=== PATIENT | male | born 1940 | race Caucasian/White ===

== ENCOUNTER 2017-07-31 13:56 | Outpatient (RCR) | payer MEDICARE ==
[2017-07-05 14:49] VITALS: BP 114/71
[2017-07-24 14:10] VITALS: BP 114/70
[~2017-07-31] VITALS: Ht 190.5 cm; Wt 90.9 kg
[~2017-07-31 13:56] MED LIST: ACYCLOVIR; CEPH500C24 PO; CIP500 PO; DAR100 PO; DOC100 PO; FAM20 PO; FAMO20TA28 PO; HYDR-318 PO; IBUP-1671 PO; IBUPROFEN; LEVO-85 PO; LOR5/325 PO; PHENA200 PO; TER2 PO; TUM500 PO
[2017-08-02] MEDS ORDERED: GOLYTE PO (11:07)
[2017-08-06] MEDS ORDERED: ACYC800T99 PO (14:48)
== END 2017-08-14 09:53 | disposition home or self-care (01) ==
LOC: RAON 13:56
PROVIDERS: ATTEND Nurse Practitioner Family
DX: Z85.46 Personal history of malignant neoplasm of prostate (principal); Z92.3 Personal history of irradiation; K59.00 Constipation, unspecified
CPT/HCPCS: 36415; 84153; G0463; 99212

== ENCOUNTER 2017-08-27 14:33 | Emergency (ER) | payer MEDICARE ==
[~2017-08-27] VITALS: Ht 190.5 cm; Wt 89.8 kg
[~2017-08-27 14:33] MED LIST changes: +ACYC800T99 PO; +GOLYTE PO; +IBUP200C71 PO
[2017-08-27] MEDS ORDERED: DIPHTH/TETANUS/ACEL. PERTUSSIS IM ONLY ONE (14:45)
--- NOTE | 2017-08-27 14:45 | ER Report ---
History and Physical Time Seen By MD: 14:44 Hx. of Stated Complaint: TRIPPED AND FELL HITTING FACE ON CONCRETE 40 MIN AGO. DENIES LOC HPI/ROS 77 year old male outside working in the driveway and tripped and fell on driveway, has abrasion forehead and nose . no blood thinners but has mild headache Allergies: Coded Allergies: penicillin G (Verified Allergy, Intermediate, HIVES, 08/27/17) soybean (Verified Allergy, Intermediate, HIVES, 08/27/17) Uncoded Allergies: SOY DUST (Allergy, Severe, AIRWAY OBSTRUCTION, 05/27/07) Home Meds Active Scripts Doxycycline Hyclate (DOXYCYCLINE HYCLATE) 100 Mg Tablet, 100 MG PO BID, #14 Prov:ALLEN OBRIEN 08/27/17 Peg/Electrolytes (GOLYTELY SOLUTION) 4,000 Ml Soln, 1 GAL PO ONCE, #1 GAL 0 Refills Prov:MARCELO SALCEDO MD 08/02/17 Reported Medications Ibuprofen (IBUPROFEN) 200 Mg Capsule, 1 CAP PO Q6H Y for PAIN/TEMP OVER 100.4, CAPSULE 08/26/17 Acyclovir (ACYCLOVIR) 800 Mg Tablet, 800 MG PO QDAY Y for prn, TAB 08/06/17 Past Medical/Surgical History Pre-migraine syndrome, hemorrhoids, right testicle surgery, irritable bladder, anxiety, depression, Reviewed Nurses Notes: Yes Old Medical Records Reviewed: Yes Hx Smoking: No Smoking Status: Former Smoker Hx Alcohol Use: Yes Constitutional Vital Sign - Last 24 Hours 08/27/17 08/27/17 08/27/17 08/27/17 14:37 14:39 15:03 15:08 Temp 97.6 Pulse 62 59 60 Resp 20 B/P (MAP) 128/80 (96) 128/80 Pulse Ox 94 94 91 O2 Delivery Room Air 08/27/17 08/27/17 08/27/17 15:38 16:03 16:08 Pulse 60 B/P (MAP) 128/85 (99) Pulse Ox 95 92 Physical Exam 77 year old male alert anxious , mild distress headnormocephalic tm non reddened , haert rate irregular, lungs ciarse, abd soft bs x 4 , vargas no edema Medical Decision Making Data Points Result Diagram: 08/27/17 1547 08/27/17 1547 Laboratory Hematology Test 08/27/17 15:47 Red Blood Count 4.17 M/uL (4.00-5.60) Mean Corpuscular Volume 101.3 fL (80.0-96.0) Mean Corpuscular Hemoglobin 35.7 pg (26.0-33.0) Mean Corpuscular Hemoglobin Concent 35.2 g/dL (32.0-36.0) Red Cell Distribution Width 13.2 % (11.5-14.5) Mean Platelet Volume 6.9 fL (7.2-11.1) Neutrophils (%) (Auto) 75.4 % (39.4-72.5) Lymphocytes (%) (Auto) 13.3 % (17.6-49.6) Monocytes (%) (Auto) 8.5 % (4.1-12.4) Eosinophils (%) (Auto) 2.2 % (0.4-6.7) Basophils (%) (Auto) 0.6 % (0.3-1.4) Nucleated RBC Relative Count (auto) 0.0 /100WBC Neutrophils # (Auto) 3.9 K/uL (2.0-7.4) Lymphocytes # (Auto) 0.7 K/uL (1.3-3.6) Monocytes # (Auto) 0.4 K/uL (0.3-1.0) Eosinophils # (Auto) 0.1 K/uL (0.0-0.5) Basophils # (Auto) 0.0 K/uL (0.0-0.1) Nucleated RBC Absolute Count (auto) 0.00 K/uL Sodium Level 139 mmol/L (137-145) Potassium Level 3.7 mmol/L (3.5-5.0) Chloride Level 103 mmol/L (98-107) Carbon Dioxide Level 25 mmol/L (22-30) Blood Urea Nitrogen 10 mg/dl (9-21) Creatinine 1.00 mg/dl (0.66-1.25) Glomerular Filtration Rate Calc > 60.0 Random Glucose 73 mg/dl (75-110) Calcium Level 8.5 mg/dl (8.4-10.2) Total Bilirubin 0.4 mg/dl (0.2-1.3) Aspartate Amino Transf (AST/SGOT) 20 U/L (0-35) Alanine Aminotransferase (ALT/SGPT) 33 U/L (0-56) Alkaline Phosphatase 73 U/L (0-126) Total Protein 6.8 gm/dl (6.3-8.2) Albumin 3.7 g/dl (3.5-5.0) Chemistry Test 08/27/17 15:47 White Blood Count 5.2 k/uL (4.5-11.0) Red Blood Count 4.17 M/uL (4.00-5.60) Hemoglobin 14.9 g/dL (14.0-18.0) Hematocrit 42.3 % (42.0-52.0) Mean Corpuscular Volume 101.3 fL (80.0-96.0) Mean Corpuscular Hemoglobin 35.7 pg (26.0-33.0) Mean Corpuscular Hemoglobin Concent 35.2 g/dL (32.0-36.0) Red Cell Distribution Width 13.2 % (11.5-14.5) Platelet Count 163 K/uL (150-450) Mean Platelet Volume 6.9 fL (7.2-11.1) Neutrophils (%) (Auto) 75.4 % (39.4-72.5) Lymphocytes (%) (Auto) 13.3 % (17.6-49.6) Monocytes (%) (Auto) 8.5 % (4.1-12.4) Eosinophils (%) (Auto) 2.2 % (0.4-6.7) Basophils (%) (Auto) 0.6 % (0.3-1.4) Nucleated RBC Relative Count (auto) 0.0 /100WBC Neutrophils # (Auto) 3.9 K/uL (2.0-7.4) Lymphocytes # (Auto) 0.7 K/uL (1.3-3.6) Monocytes # (Auto) 0.4 K/uL (0.3-1.0) Eosinophils # (Auto) 0.1 K/uL (0.0-0.5) Basophils # (Auto) 0.0 K/uL (0.0-0.1) Nucleated RBC Absolute Count (auto) 0.00 K/uL Glomerular Filtration Rate Calc > 60.0 Calcium Level 8.5 mg/dl (8.4-10.2) Total Bilirubin 0.4 mg/dl (0.2-1.3) Aspartate Amino Transf (AST/SGOT) 20 U/L (0-35) Alanine Aminotransferase (ALT/SGPT) 33 U/L (0-56) Alkaline Phosphatase 73 U/L (0-126) Total Protein 6.8 gm/dl (6.3-8.2) Albumin 3.7 g/dl (3.5-5.0) ED Course/Re-evaluation ED Course Patient CT head and neck are negative abrasion to forehead had small amount of Dermabond added Pelto dressing placed CBC and comp are within normal limits patient feels better after treatment able to go home with head injury instructions, CAT scan of the head does so mild sinus disease we will treat this Re-evaluation Pain-free on dismissal is with him head injury instructions given to os Procedure Abrasion forehead cleaned with Hibiclens no active bleeding Dermabond to 1/2 inch deeper part of the abrasion to control bleeding tolerated well Decision to Disposition Date: Aug 27, 2017 Decision to Disposition Time: 16:08 Depart Departure Latest Vital Signs Vital Signs Date Time Temp Pulse Resp B/P (MAP) Pulse Ox O2 Delivery O2 Flow Rate FiO2 08/27/17 16:08 92 08/27/17 16:03 128/85 (99) 08/27/17 15:38 60 08/27/17 14:39 97.6 20 Room Air Impression: Primary Impression: Abrasion Additional Impression: Head injury Condition: Improved Disposition: HOME OR SELF-CARE Referrals: ENT-OTOLARYNGOLOGY 5 Days New Scripts Doxycycline Hyclate (DOXYCYCLINE HYCLATE) 100 Mg Tablet 100 MG PO BID, #14 Prov: ALLEN OBRIEN 08/27/17 Patient Instructions: Abrasion (GEN), Fall Prevention (ED), Head Injury (ED), Sinusitis (ED) Problem Qualifiers ALLEN OBRIEN Aug 27, 2017 14:44
[2017-08-27] MEDS ORDERED: OCTYL CYANOACRYLATE 1 APP APPL TP ONE (14:50)
[2017-08-27 15:56] LABS: PLATELET COUNT, AUTOMATED 163 K/uL (150-450)
[2017-08-27 16:03] VITALS: BP 128/85
--- NOTE | 2017-08-27 16:32 | RADIOLOGY IMAGING REPORT ---
FACILITY: [facility] PATIENT NAME: Tyrone Justin : 1940 MR: [id number] V: [id number] EXAM DATE: ORDERING PHYSICIAN: ALLEN OBRIEN TECHNOLOGIST: Location: [facility] - [place] Patient: Tyrone Justin : 1940 Visit/Account:[id number] Date of Sevice: 08/27/2017 CT Head without contrast and CT Cervical spine: Indication: Fall, hit driveway. Comparison: None available Technique: CT head: Axial CT images were obtained through the brain from the skull base to the verte x without administration of IV contrast. Reformatted coronal and sagittal images were also obtained. Technique: CT cervical spine: Axial CT imaging of the cervical spine was performed. 2-D sagittal and coronal CT reformats were also obtained. One of the following dose optimization techniques was utilized in the performance of this exam: Autom ated exposure control; adjustment of the mA and/or kV according to the patient's size; or use of an i terative reconstruction technique. Specific details can be referenced in the facility's radiology C T exam operational policy. FINDINGS: CT head: No intracranial bleed, midline shift, mass effect, extra-axial fluid collection or hydrocephalus. Mil d age-related cerebral atrophy. Minimal periventricular ischemic changes consistent small vessel dise ase. Zelaya/white matter differentiation appears normal. Bony structures show no fractures or lesions. Small subcutaneous hematoma above the left forehead. There is a couple tiny radiopaque densities in t he skin of the left forehead. Mild mucosal thickening seen in the inferior right maxillary sinus. The remaining sinuses and mastoids visualized are clear. CT cervical spine: The vertebral bodies are aligned. No fracture or facet dislocation. Diffuse osteopenia. Diffuse moder ate degenerative changes including disc space narrowing, endplate changes, vacuum disc phenomena, ost eophytes and facet arthropathy. No bony canal stenosis. Multilevel neural foramina narrowing. The end plates are maintained. No obvious disc herniation. Prevertebral soft tissues and surrounding soft ti ssues are unremarkable. Lung apices are clear. IMPRESSION: 1. No acute intracranial abnormality. Mild senescent changes. 2. No acute osseous or acute alignment abnormality of the cervical spine. Degenerative changes and os teopenia. 3. Mild right maxillary sinus disease. Report Dictated By: Kalen Lacey at 08/27/2017 4:17 PM Report E-Signed By: Kalen Lacey at 08/27/2017 4:28 PM WSN:[id number]
--- NOTE | 2017-08-27 16:32 | RADIOLOGY IMAGING REPORT ---
FACILITY: [facility] PATIENT NAME: Tyrone Justin : 1940 MR: [id number] V: [id number] EXAM DATE: ORDERING PHYSICIAN: ALLEN OBRIEN TECHNOLOGIST: Location: [facility] - [place] Patient: Tyrone Justin : 1940 Visit/Account:[id number] Date of Sevice: 08/27/2017 CT Head without contrast and CT Cervical spine: Indication: Fall, hit driveway. Comparison: None available Technique: CT head: Axial CT images were obtained through the brain from the skull base to the verte x without administration of IV contrast. Reformatted coronal and sagittal images were also obtained. Technique: CT cervical spine: Axial CT imaging of the cervical spine was performed. 2-D sagittal and coronal CT reformats were also obtained. One of the following dose optimization techniques was utilized in the performance of this exam: Autom ated exposure control; adjustment of the mA and/or kV according to the patient's size; or use of an i terative reconstruction technique. Specific details can be referenced in the facility's radiology C T exam operational policy. FINDINGS: CT head: No intracranial bleed, midline shift, mass effect, extra-axial fluid collection or hydrocephalus. Mil d age-related cerebral atrophy. Minimal periventricular ischemic changes consistent small vessel dise ase. Zelaya/white matter differentiation appears normal. Bony structures show no fractures or lesions. Small subcutaneous hematoma above the left forehead. There is a couple tiny radiopaque densities in t he skin of the left forehead. Mild mucosal thickening seen in the inferior right maxillary sinus. The remaining sinuses and mastoids visualized are clear. CT cervical spine: The vertebral bodies are aligned. No fracture or facet dislocation. Diffuse osteopenia. Diffuse moder ate degenerative changes including disc space narrowing, endplate changes, vacuum disc phenomena, ost eophytes and facet arthropathy. No bony canal stenosis. Multilevel neural foramina narrowing. The end plates are maintained. No obvious disc herniation. Prevertebral soft tissues and surrounding soft ti ssues are unremarkable. Lung apices are clear. IMPRESSION: 1. No acute intracranial abnormality. Mild senescent changes. 2. No acute osseous or acute alignment abnormality of the cervical spine. Degenerative changes and os teopenia. 3. Mild right maxillary sinus disease. Report Dictated By: Kalen Lacey at 08/27/2017 4:17 PM Report E-Signed By: Kalen Lacey at 08/27/2017 4:28 PM WSN:[id number]
[2017-08-27] MEDS ORDERED: DOXY-179 PO (16:46)
== END 2017-08-27 16:58 | disposition home or self-care (01) ==
LOC: ER 14:49
DX: S00.81XA Abrasion of other part of head, initial encounter (principal); S00.31XA Abrasion of nose, initial encounter; W01.198A Fall on same level from slipping, tripping and stumbling with subsequent striking against other object, initial encounter
CPT/HCPCS: 36415; 70450; 72125; 82040; 82247; 82310; 82374; 82435; 82565; 82947; 84075; 84132; 84155; 84295; 84450; 84460; 84520; 85025; 90471; 90715; 99283

== ENCOUNTER 2017-09-18 01:42 | Day surgery (SDC) | payer MEDICARE ==
[~2017-09-18] VITALS: Ht 185.4 cm; Wt 87.1 kg
[~2017-09-18 01:42] MED LIST changes: +DOXY-179 PO; +LIDOCAINE/SOD BICARB 8.4% SYR ID ONE; +MIDAZOLAM 2 MG/2 ML VIAL IVP ONE; +NORMOSOL R SOLN(*) 1000 ML BAG 1,000 ML IV PRN
[2017-09-18] MEDS ORDERED: LIDOCAINE MPF 1% 5 ML VIAL ONE (06:56)
[2017-09-18] MEDS ORDERED: PROPOFOL EMUL(*) 10MG/ML 20 ML 60 ML ONE (06:56)
[2017-09-18] MEDS ORDERED: MIDAZOLAM 2 MG/2 ML VIAL IVP PRN (08:50)
[2017-09-18] MEDS ORDERED: NORMOSOL R SOLN(*) 1000 ML BAG 1,000 ML IV PRN (08:50)
[2017-09-18] MEDS ORDERED: LIDOCAINE/SOD BICARB 8.4% SYR ID ONE (08:50)
[2017-09-18 08:58] VITALS: BP 132/82
[2017-09-18 11:41] VITALS: BP 132/82
[2017-09-18 11:45] VITALS: BP 131/85
--- NOTE | 2017-09-18 11:56 | Short(Outpt) Discharge Summary ---
Discharge Summary Reason for Hosp/Final Diag: (1) BRBPR (bright red blood per rectum) Status: Chronic Hospital Course & Plan: Colonoscopy with polpectomy and biopsy of suspected rectal cancer completed without problems. Departure Discharge to: Home, Self Care Discharge Instructions Home Meds Active Scripts Doxycycline Hyclate (DOXYCYCLINE HYCLATE) 100 Mg Tablet, 100 MG PO BID, #14 Prov:CAMILLEALLEN Theresa REGRINDER OPERATOR-C 08/27/17 Peg/Electrolytes (GOLYTELY SOLUTION) 4,000 Ml Soln, 1 GAL PO ONCE, #1 GAL 0 Refills Prov:MARCELO SALCEDO MD 08/02/17 Reported Medications Ibuprofen (IBUPROFEN) 200 Mg Capsule, 1 CAP PO Q6H Y for PAIN/TEMP OVER 100.4, CAPSULE 08/26/17 Acyclovir (ACYCLOVIR) 800 Mg Tablet, 800 MG PO QDAY Y for prn, TAB 08/06/17 Follow up Referrals: General Surgery - 10/08/17 @ Surgery, General with Marcelo Salcedo Md You have a follow up appointment scheduled with Dr. Salcedo on 10/08/17, at 4:30pm. Diet: Regular Activity: As Tolerated Special Instructions: Your colonoscopy was completed without problems and your prep was excellent. You have a mass in your rectum that I suspect is a cancer due to its size and appearance. I took multiple biopsies of it. I will call you next week with the results of the biopsies and will arrange further workup such as CT scan and MRI studies after I get the pathology results back. I will then discuss all of these results with you when I see you back in my office on 10/08/17, at 4:30pm. MARCELO SALCEDO MD Sep 18, 2017 11:56
[2017-09-18 12:00] VITALS: BP 131/78
[2017-09-18 12:06] VITALS: BP 117/70
[2017-09-18 12:08] VITALS: BP 117/83
[2017-09-19] MEDS ORDERED: DIAZ-308 PO (15:44)
[2017-09-23] MEDS ORDERED: DIAZ-308 PO (09:33)
== END 2017-09-18 12:27 | disposition home or self-care (01) ==
LOC: OR 01:42
PROVIDERS: ATTEND Surgery
DX: K63.5 Polyp of colon (principal); C20 Malignant neoplasm of rectum
CPT/HCPCS: 00811; 45384; 45385; 88305; 88344; J2001; J2704

== ENCOUNTER → 2017-09-23 | Outpatient (CLI) | payer MEDICARE ==
[~2017-09-23] MED LIST changes: +DIAZ-308 PO; +IOPAMIDOL 76% 75 ML INFUS BTL 0 ML ONE; +IOPAMIDOL 76% 75 ML INFUS BTL 75 ML ONE; -LIDOCAINE/SOD BICARB 8.4% SYR ID ONE; -MIDAZOLAM 2 MG/2 ML VIAL IVP ONE; -NORMOSOL R SOLN(*) 1000 ML BAG 1,000 ML IV PRN
[2017-09-23 09:50] LABS: PLATELET COUNT, AUTOMATED 181 K/uL (150-450)
--- NOTE | 2017-09-23 11:25 | RADIOLOGY IMAGING REPORT ---
FACILITY: [facility] - [place] PATIENT NAME: Tyrone Justin : 1940 MR: [id number] V: [id number] EXAM DATE: ORDERING PHYSICIAN: MARCELO SALCEDO TECHNOLOGIST: Location: [facility] Patient: Tyrone Justin : 1940 Visit/Account:[id number] Date of Sevice: 09/23/2017 EXAMINATION: CT Thorax W/Contrast CT Abdomen W/Contrast CT Pelvis W/Contrast HISTORY: Rectal cancer TECHNIQUE: Spiral scan was obtained through the chest, abdomen and pelvis during injection of nonioni c iodinated intravenous contrast. Dose Lowering Technique One of the following dose optimization techniques was utilized in the performance of this exam: Autom ated exposure control; adjustment of the mA and/or kV according to the patient's size; or use of an i terative reconstruction technique. Specific details can be referenced in the facility's radiology C T exam operational policy. Contrast: 75 mL of IV Isovue-[id number]. COMPARISON STUDIES: May 31, 2015. FINDINGS: CT THORAX W/CONTRAST: Lungs / pleura: Negative Mediastinum / jihan: Negative Heart / pericardium: There is mild aneurysmal dilatation of the ascending thoracic aorta measuring 4 .2 cm in AP dimension. There are mild coronary artery vascular calcifications. Musculoskeletal / Body wall: Moderate spondylotic changes of the thoracic spine Lymph node assessment: Negative Lower neck: Negative CT ABDOMEN AND PELVIS W/CONTRAST: Liver / biliary: Gallbladder is partially contracted not ideally evaluated. Common bile duct is dila demian at 1 cm Pancreas: Negative Spleen: Negative Adrenal glands: Negative Kidneys / retroperitoneum: Mild bladder wall thickening Pelvic structures: Surgical clips are seen in the prostate gland Bowel / peritoneum / mesenteries: There is diffuse rectal wall thickening with mild infiltrative samantha nges seen in the perirectal fat. There is extensive diverticulosis throughout the left-sided colon n o CT evidence of acute diverticulitis. Vessels: Mild vascular calcifications in the thoracic aorta and branch vessels Musculoskeletal / Body wall: Spondylotic changes of the lumbar spine. No aggressive appearing bone lesions are seen. 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 Gallbladder is partially contracted and not ideally evaluated. This could be better evaluated with ultrasound Mild bladder wall thickening Diffuse rectal wall thickening and mild infiltrative changes in the perirectal fat apparently related to patient's known rectal carcinoma Small left inguinal hernia containing fat Extensive diverticulosis without the left-sided colon although no CT evidence of acute diverticulitis Report Dictated By: Nava Delarosa MD at 09/23/2017 11:06 AM Report E-Signed By: Nava Delarosa MD at 09/23/2017 11:19 AM KERONN:[email or web address]
== END ==
LOC: CT 07:06
PROVIDERS: ATTEND Surgery
DX: I71.4 Abdominal aortic aneurysm, without rupture (principal); K40.90 Unilateral inguinal hernia, without obstruction or gangrene, not specified as recurrent; K57.30 Diverticulosis of large intestine without perforation or abscess without bleeding; C20 Malignant neoplasm of rectum
CPT/HCPCS: 36415; 71260; 74177; 82248; 82378; 85025; Q9967; 82040; 82247; 82310; 82374; 82435; 82565; 82947; 84075; 84132; 84155; 84295; 84450; 84460; 84520

== ENCOUNTER → 2017-09-26 | Outpatient (CLI) | payer MEDICARE ==
[~2017-09-26] MED LIST changes: +DIA5 PO; +GADOBENATE 529MG/1ML 15ML VIAL IVP ONE; -IOPAMIDOL 76% 75 ML INFUS BTL 0 ML ONE; -IOPAMIDOL 76% 75 ML INFUS BTL 75 ML ONE; +NS 0.9% 20 ML SDV 40 ML ONE
--- NOTE | 2017-09-26 10:30 | RADIOLOGY IMAGING REPORT ---
FACILITY: [facility] - [place] PATIENT NAME: Tyrone Justin : 1940 MR: [id number] V: [id number] EXAM DATE: ORDERING PHYSICIAN: MARCELO SALCEDO TECHNOLOGIST: Location: [facility] [place] Patient: Tyrone Justin : 1940 Visit/Account:[id number] Date of Sevice: 09/26/2017 EXAMINATION: Orbit radiograph single view HISTORY: Pre-MRI screening. COMPARISON: None. FINDINGS: Single view of the orbits is obtained. No radiopaque or metallic foreign bodies of either orbit. Visualized bony structures are intact. Gravity llic dental amalgam is present, which should not preclude MRI scanning. IMPRESSION: Orbits are cleared for MRI. Report Dictated By: Mitchell Garg at 09/26/2017 10:05 AM Report E-Signed By: Mitchell Garg at 09/26/2017 10:06 AM WSN:[id number]
--- NOTE | 2017-09-27 16:09 | RADIOLOGY IMAGING REPORT ---
FACILITY: [facility] - [place] PATIENT NAME: Tyrone Justin : 1940 MR: [id number] V: [id number] EXAM DATE: ORDERING PHYSICIAN: MARCELO SALCEDO TECHNOLOGIST: Location[place] [facility] [place] Patient: Tyrone Justin : 1940 Visit/Account:[id number] Date of Sevice: 09/26/2017 Exam type: PELVIS W W/O CONTRAST History: Staging rectal cancer, history of prostate cancer Comparison: CT scan 09/23/2017. TECHNIQUE: Multiplanar multisequence MRI imaging of the pelvis was performed with and without contras t. The patient received 15 cc of MultiHance contrast for this study. Findings: The exact margins of the rectal cancer are somewhat difficult to discern but there is circumferential irregular thickening of the mid rectum beginning 2.5 cm above the anal verge and extending for a dis tance of nearly 4.4 cm in craniocaudal length. The right portion of the circumferential thickening is irregular with invasion of the perirectal fat planes suggesting transmural invasion. Narrowest margin to the mesorectal fascia is 5 mm. No evidence for direct invasion of the seminal vesicles or prostate gland. No evidence for bowel obstruction. Sigmoid colon demonstrates diverticulosis. No pathologic adenopathy in the pelvis. Patient appears to have a TURP defect the prostate gland. Metallic fiducials in the prostate gland ar e from prior treatment of prostate cancer. Edema in the presacral space is presumably from prior radi ation. The bone marrow is notable for a lesion in the right inferior sacrum measuring 2.7 x 1.3 cm which is increased in signal on T2, nearly isointense on T1 and demonstrates enhancement. While this may repre sent post radiation change, technically a metastatic lesion is not excluded. IMPRESSION: 1. Patient's newly diagnosed rectal cancer is somewhat difficult to discern but there is circumferent ial, irregular thickening of the mid rectum 2.5 cm above the anal verge extending for a distance of n early 4.4 cm. There is irregularity of the right aspect of the wall of the rectum suggesting transmur al invasion into the perirectal fat. Closest margin to the mesorectal fascia is 5 mm 2. No evidence for pathologic adenopathy in the deep pelvis. 3. Indeterminant enhancing bone lesion in the right inferior sacrum measuring 2.7 x 1.3 cm. Technical ly an osseous metastatic lesion is not excluded. 4. Posttreatment changes are noted from prostate cancer. Presacral edema likely reflects prior pelvic radiation. Report Dictated By: Kalen Kauffman MD at 09/27/2017 3:46 PM Report E-Signed By: Kalen Kauffman MD at 09/27/2017 4:05 PM WSN:[id number]
== END ==
LOC: MRI 00:52
PROVIDERS: ATTEND Surgery
DX: C20 Malignant neoplasm of rectum (principal)
CPT/HCPCS: 70030; 72197; A9577; J7050

== ENCOUNTER → 2017-09-27 | Outpatient (CLI) | payer MEDICARE | LOC: MRI 06:59 | PROVIDERS: ATTEND Surgery | DX: Z13.89 Encounter for screening for other disorder (principal) | CPT/HCPCS: A9577; J7050 ==

== ENCOUNTER → 2017-10-01 | Outpatient (CLI) | payer MEDICARE ==
[~2017-10-01] MED LIST changes: +ACET-1966 PO; -GADOBENATE 529MG/1ML 15ML VIAL IVP ONE; -NS 0.9% 20 ML SDV 40 ML ONE; +PNEU0.5D3 IM
== END ==
LOC: LAB 16:57
PROVIDERS: ATTEND Nurse Practitioner Family
DX: D75.89 Other specified diseases of blood and blood-forming organs (principal); R71.8 Other abnormality of red blood cells; F41.9 Anxiety disorder, unspecified; G62.9 Polyneuropathy, unspecified
CPT/HCPCS: 36415; 82040; 82247; 82248; 82465; 82607; 82728; 82746; 83540; 83718; 84075; 84155; 84443; 84450; 84460; 84478

== ENCOUNTER 2017-10-17 01:57 | Day surgery (SDC) | payer MEDICARE ==
[~2017-10-17] VITALS: Ht 185.4 cm; Wt 86.6 kg
[~2017-10-17 01:57] MED LIST changes: +FAMOTIDINE 20 MG TAB PO ONE; +LIDOCAINE/SOD BICARB 8.4% SYR ID ONE; +MIDAZOLAM 2 MG/2 ML VIAL IVP PRN; +NORMOSOL R SOLN(*) 1000 ML BAG 1,000 ML IV PRN; +VANCOMYCIN 1 GM ADDVIAL 1 GM in NS(*) 0.9% 250 ML ADDVAN BAG 250 ML IVPB ONE
[2017-10-17] MEDS ORDERED: NS(*) 0.9% 10 ML VIAL 10 ML ONE (12:23)
[2017-10-17] MEDS ORDERED: HEPARIN SOD LCK FLSH 100 UN/ML ONE (12:23)
[2017-10-17] MEDS ORDERED: ROPIVACAINE 0.5% 20 ML VIAL ONE (12:23)
[2017-10-17] MEDS ORDERED: LIDOCAINE MPF 1% 5 ML VIAL ONE (13:20)
[2017-10-17] MEDS ORDERED: ONDANSETRON 4 MG/2 ML VIAL ONE (13:20)
[2017-10-17] MEDS ORDERED: PROPOFOL EMUL(*) 10MG/ML 20 ML 20 ML ONE (13:20)
[2017-10-17] MEDS ORDERED: fentaNYL CITR 100 MCG/2 ML AMP ONE (13:21)
[2017-10-17] MEDS ORDERED: DEXAMETHASONE SOD 4 MG/ML VIAL ONE (13:21)
[2017-10-17] MEDS ORDERED: VANCOMYCIN 1 GM ADDVIAL 1 GM in NS(*) 0.9% 250 ML ADDVAN BAG 250 ML IVPB ONE (13:25)
[2017-10-17] MEDS ORDERED: FAMOTIDINE 20 MG TAB PO ONE (13:30)
[2017-10-17] MEDS ORDERED: LIDOCAINE/SOD BICARB 8.4% SYR ID ONE (13:30)
[2017-10-17] MEDS ORDERED: MIDAZOLAM 2 MG/2 ML VIAL IVP PRN (13:30)
[2017-10-17] MEDS ORDERED: NORMOSOL R SOLN(*) 1000 ML BAG 1,000 ML IV PRN (13:30)
[2017-10-17 13:46] VITALS: BP 122/80
[2017-10-17] MEDS ORDERED: DOCU-416 PO (17:37)
[2017-10-17] MEDS ORDERED: OXYC-854 PO (17:37)
--- NOTE | 2017-10-17 17:39 | Short(Outpt) Discharge Summary ---
Discharge Summary Reason for Hosp/Final Diag: (1) Rectal cancer Status: Chronic Hospital Course & Plan: Right IJ Power Port placed without problems. Departure Discharge to: Home, Self Care Discharge Instructions Home Meds Active Scripts Docusate Sodium (COLACE) 100 Mg Capsule, 1 CAP PO BID, #30 CAP 0 Refills TAKE WITH A FULL GLASS OF WATER Prov:MARCELO SALCEDO MD 10/17/17 Oxycodone Hcl/Acet 5/325 Mg (ENDOCET 5-325 TABLET) 1 Each Tablet, 1 TAB PO Q4H Y for PAIN, #15 TAB 0 Refills Prov:MARCELO SALCEDO MD 10/17/17 Diazepam (DIAZEPAM) 5 Mg Tablet, 1 TAB PO BID Y for ANXIETY, #5 TAB 0 Refills Prov:MARCELO SALCEDO MD 09/23/17 Reported Medications Acetaminophen (TYLENOL) 325 Mg Tablet, 325 MG PO PRN Y for PAIN, TAB 10/02/17 Diazepam (VALIUM) 5 Mg Tablet, 2.5 MG PO QHS, #5 TAB 09/26/17 Acyclovir (ACYCLOVIR) 800 Mg Tablet, 800 MG PO QDAY Y for prn, TAB 08/06/17 Diet: Regular Activity: As Tolerated Special Instructions: You may shower starting on 10/19/17, but don't immerse the incisions for 2 weeks. You can leave the incisions open to air but leave the steristrips in place until they fall off on their own. There is a suture in the tiny right neck incision that is dissolvable and should fall out in the next 2 weeks. If it doesn't, gently pull on the knot and it may come out with gentle force. If not, if you're comfortable, you can remove it with scissors or you can have someone at the cancer center remove it or I'd be happy to remove it in my office. All other sutures are under your skin and will dissolve over time. You do not need to follow up with me but if you feel that you're having problems related to your port, please call my office. My nurse's direct line is [phone]. She is out of the office on since I'm in the OR all day but she is there the rest of the week (excluding weekends). MARCELO SALCEDO MD Oct 17, 2017 17:39
--- NOTE | 2017-10-17 17:50 | RADIOLOGY IMAGING REPORT ---
FACILITY: [facility] PATIENT NAME: Tyrone Justin : 1940 MR: [id number] V: [id number] EXAM DATE: ORDERING PHYSICIAN: MARCELO SALCEDO TECHNOLOGIST: Location: [facility] [place] Patient: Tyrone Justin : 1940 Visit/Account:[id number] Date of Sevice: 10/17/2017 Exam type: C-ARM FLUORO PORT/CATH History: Port placement Comparison: None. Findings: A single first spot image of the right upper thorax demonstrates S1 of a right IJ port. The total fl uoroscopy dose is 0.11786 mGray per meter squared. The cumulative fluoroscopy time was 16.4 seconds IMPRESSION: 1. As above Report Dictated By: Nava Delarosa MD at 10/17/2017 5:45 PM Report E-Signed By: Nava Delarosa MD at 10/17/2017 5:46 PM WSN:[email or web address]
--- NOTE | 2017-10-17 17:51 | Post Operative Progress Note ---
Post Operative Progress Note Date: Oct 17, 2017 Time: 17:40 Surgeon: Danii Dictation number: [id number] Anesthesia: LMA by Dr. Stacy Pre-Op Diagnosis: Rectal Cancer Post-Op Diagnosis: ASHOK Findings: None Procedure(s): Right IJ Power Port placement Specimen Removed:(May be N/A): None Complications: None Fluids: See anesthesia record Estimated Blood Loss: Minimal Date OP Note Dictated: Oct 17, 2017 Time OP Note Dictated: 17:41 MARCELO SALCEDO MD Oct 17, 2017 17:51
--- NOTE | 2017-10-17 18:00 | RADIOLOGY IMAGING REPORT ---
FACILITY: [facility] [place] PATIENT NAME: Tyrone Justin : 1940 MR: [id number] V: [id number] EXAM DATE: ORDERING PHYSICIAN: MARCELO SALCEDO TECHNOLOGIST: Location: [facility] Patient: Tyrone Justin : 1940 Visit/Account:[id number] Date of Sevice: 10/17/2017 Exam type: CHEST SINGLE AP History: Right IJ Power Port placement Comparison: September 23, 2015. Findings: There is a right IJ catheter with the distal tip projecting over the superior vena cava. No pneumoth orax is seen. There is no evidence of pulmonary consolidation pleural effusions or pulmonary edema. Cardiac silhouette is normal in size. IMPRESSION: 1. Right IJ catheter appears to been good position with the distal tip projecting over the superior vena cava Report Dictated By: Nava Delarosa MD at 10/17/2017 5:55 PM Report E-Signed By: Nava Delarosa MD at 10/17/2017 5:57 PM WSN:[email or web address]
--- NOTE | 2017-10-17 20:07 | OPERATIVE REPORT 1 ---
EVENT DATE: October 17, 2017 SURGEON: Mitchell Foy MD ANESTHESIOLOGIST: Mitchell Stacy MD ANESTHESIA: LMA. PREOPERATIVE DIAGNOSIS Rectal cancer. POSTOPERATIVE DIAGNOSIS Rectal cancer. PROCEDURE PERFORMED Right internal jugular vein PowerPort placement. COMPLICATIONS None. CONDITION Stable. BLOOD LOSS Minimal. INDICATIONS This is a 77-year-old gentleman who was recently found to have rectal cancer. He has been seen by the oncologist, who wants to start neoadjuvant chemotherapy and has requested a PowerPort to facilitate this. DESCRIPTION OF PROCEDURE The patient was brought into the operating room and placed supine on the operating table. LMA anesthesia was administered, and his right neck, chest, and shoulder were prepped and draped in a sterile fashion. Timeout was completed. With the patient in Trendelenburg, I used the ultrasound to identify the right internal jugular vein and used the needle to access the vein on one attempt. I threaded the wire through the needle and removed the needle. I used the C-arm fluoroscope to ensure that the wire was in the SVC just above the heart. I then anesthetized the skin at the stab incision in the neck and also in the infraclavicular skin and made a transverse incision in the infraclavicular skin. I dissected through the dermis and subcutaneous fat down onto the muscle fascia and then created a pocket caudad to the incision big enough to accommodate the port. I made a stab incision in the right neck. I then pulled the catheter from the pocket up into stab incision in the neck using the tunneler, and then with the patient in Trendelenburg, I threaded the dilator and sheath over the wire and confirmed the position of the dilator and sheath in the SVC with the C-arm. I then removed the dilator and wire, threaded the catheter through the sheath, and then removed the sheath. I used the C-arm to position the tip of the catheter in the SVC just above the right atrium. I then cut the catheter to length, placed the port on the catheter, and locked it in place with a locking collar. I sutured the port to the underlying muscle fascia with 3-0 nylon at the corners and then took some more C -arm pictures. It looked good with no kinks or twists in the catheter. I then aspirated blood from the port and catheter and then flushed the 10 mL of preservative-free normal saline, followed by 5 mL of 100 units/mL of heparinized saline. It aspirated and flushed with no problems. I then closed the infraclavicular incision with interrupted 3-0 Vicryl deep dermal sutures and 4-0 Monocryl running subcuticular sutures. The stab incision in the neck was closed with a single 3-0 chromic suture. I then cleaned and dried the skin and placed Steri-Strips over each incision. The patient was then awakened in the LMA room. He was transported to the recovery room in stable condition having tolerated the procedure without any apparent problems. MELVIN
== END 2017-10-17 18:48 | disposition home or self-care (01) ==
LOC: OR 01:57
PROVIDERS: ATTEND Surgery
DX: C20 Malignant neoplasm of rectum (principal)
CPT/HCPCS: 36561; 71045; 77001; A9270; J1100; J1642; J2001; J2250; J2405; J2704; J2795; J3010; J3370; J7050

== ENCOUNTER 2017-11-05 10:00 | Outpatient (RCR) | payer MEDICARE ==
--- NOTE | 2017-10-23 16:12 | PT INITIAL EVALUATION ---
MEDICAL DIAGNOSIS: Rectal Cancer TREATMENT DIAGNOSIS: Rectal Cancer DATE OF ONSET: 10/22/17 SUBJECTIVE: Tyrone is a 77 year old male presenting to oncology rehabilitation for education with initiation of treatment for rectal cancer. Pt is to start regime of Oxaliplatin, Leucovorin, and 5FU for 12 cycles occurring every 2 weeks. Pt is currently very active with regular aerobic and strengthening exercises. Pt reports no pain at this time, but occasionally has L shoulder pain with overhead reaching while performing lifting exercises. Social work is present for education as well. 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 OBJECTIVE: ROM: UE and LE ROM: Full with L shoulder pain at end range flexion. Strength: LE MMT: 5/5 in all LE major muscle groups. Sensation: No reports of changed sensation or tingling in hands or feet Special Tests: Neer's: L (+), Empty Can: (+) Mobility: ECOG Performance Status: Grade 0 Other Objective Findings: FACT-G: PWB: , SWB: 25.07/21, EWB: 02/14, FWB: , Total: 81.1/108 ASSESSMENT: Tyrone shows signs and symptoms consistent with L shoulder impingement. Physical therapy is indicated for this patient to address the above listed impairments as well as to maintain functional status with ongoing oncological intervention for Rectal Cancer diagnosis. Short Term Goals In 2 months pt will maintain FACT-G score of > 80/108 for maintained functional well-being. In 2 months pt will maintain ECOG performance status of 0 for improved outcomes with ongoing oncological treatment. In 2 months pt will no longer have shoulder pain with exercise routine or over head lifting for improved function with ADL's. In 4 months pt will maintain FACT-G score of > 80/108 for maintained functional well-being. In 4 months pt will maintain ECOG performance status of 0 for improved outcomes with ongoing oncological treatment. Patient's Goals Maintain function with ongoing oncological intervention. PLAN: Patient to be seen for Manual Therapy/STM/MET Strengthening/condition Ice/Heat Range of Motion Spinal Stabilization Ultrasound Stretching Iontophoresis Neuromuscular Re-ed Closed Chain Program Electrical Stim Posture/Body mechanics Gait Trg/Balance Trg Biofeedback Home Exercise Program Mech./Manual Traction Therapeutic Activities Pelvic Floor 1x/2 Weeks for 4 Months If you have any questions, comments, or concerns about this report or plan, please contact me at . Thank you, Natalie Basilio, PT, DPT, CLT MELVIN
[~2017-11-05 10:00] MED LIST changes: +DOCU-416 PO; -FAMOTIDINE 20 MG TAB PO ONE; +IBUP-136 PO; -IBUP200C71 PO; -LIDOCAINE/SOD BICARB 8.4% SYR ID ONE; -MIDAZOLAM 2 MG/2 ML VIAL IVP PRN; -NORMOSOL R SOLN(*) 1000 ML BAG 1,000 ML IV PRN; +OXYC-854 PO; -VANCOMYCIN 1 GM ADDVIAL 1 GM in NS(*) 0.9% 250 ML ADDVAN BAG 250 ML IVPB ONE
--- NOTE | 2017-11-19 16:31 | PT PLAN OF CARE ---
Physician: Fred Malave MD Patient is being seen: 1x/Week Therapist: Natalie Basilio, PT, DPT, CLT Medical Diagnosis: Rectal Cancer Treatment Diagnosis: Rectal Cancer Date of Onset: 10/22/17 Date of Initial Evaluation: 10/22/17 Date patient was last seen: 11/19/17 Number of treatments: 3 Number of cancellations/No shows: 0 INTERVENTIONS: Manual Therapy/STM/MET Strengthening/condition Ice/Heat Range of Motion Spinal Stabilization Ultrasound Stretching Iontophoresis Neuromuscular Re-ed Closed Chain Program Electrical Stim Posture/Body mechanics Gait Trg/Balance Trg Biofeedback Home Exercise Program Mech./Manual Traction Therapeutic Activities Pelvic Floor GOALS: In 2 months pt will maintain FACT-G score of > 80/108 for maintained functional well-being. In 2 months pt will maintain ECOG performance status of 0 for improved outcomes with ongoing oncological treatment. In 2 months pt will no longer have shoulder pain with exercise routine or over head lifting for improved function with ADL's. In 4 months pt will maintain FACT-G score of > 80/108 for maintained functional well-being. In 4 months pt will maintain ECOG performance status of 0 for improved outcomes with ongoing oncological treatment. PATIENT'S GOAL: Maintain function with ongoing oncological intervention. Status of Patient's Goals: In Progress Patient Compliance: Good Prognosis: Good Reasons for continuing therapy: Pt shows improved shoulder scapulo-humeral rhythm with cuing with decreased anterior displacement of the L shoulder. Pt had no symptoms of impingement throughout session and shows progressive strength improvements. Pt physical well-being shows significant decrease in status with increased side-effects from treatment including mouth sores, fatigue and neuropathy. Physical symptoms discussed with Oncology MD office for addressing. However, emotional well-being shows improvements with decreased anxiety regarding treatment and diagnosis. ROM: UE and LE ROM: Full with L shoulder pain at end range flexion. Strength: LE MMT: 5/5 in all LE major muscle groups. Special Tests: Neer's: L (+), Empty Can: (+) Mobility: ECOG Performance Status: Grade 0 Other Objective Findings: FACT-G (EVAL): PWB: , SWB: 25.1, EWB: 02/14, FWB: , Total: 81.1/108 FACT-G (11/19/17): PWB: , SWB: 26.6/28, EWB: , FWB: , Total : 77.6/108 If you have any questions or concerns, please feel free to contact me at . Thank you, Natalie Basilio, PT, DPT, CLT MTDD
[2018-01-14] MEDS ORDERED: APIX5TAB PO (12:50)
[2018-01-14] MEDS ORDERED: ACYC800T99 PO (12:58)
== END 2018-01-20 ==
LOC: PT 10:00
PROVIDERS: ATTEND Internal Medicine
DX: C20 Malignant neoplasm of rectum (principal); M25.512 Pain in left shoulder
CPT/HCPCS: 97162

== ENCOUNTER → 2017-11-07 | Outpatient (CLI) | payer MEDICARE, OTHER ==
[~2017-11-07] MED LIST changes: -IBUP-136 PO; +IBUP200C71 PO; +PEGFILGRASTIM 6 MG/0.6 ML SYR SUBQ ONE
== END ==
LOC: SPU 07:43
PROVIDERS: ATTEND Internal Medicine Hematology
DX: C18.9 Malignant neoplasm of colon, unspecified (principal)
CPT/HCPCS: 96372; J2505

== ENCOUNTER 2017-11-26 13:51 | Outpatient (RCR) | payer MEDICARE ==
--- NOTE | 2017-10-02 10:19 | TOBIN CONSULT ---
EVENT DATE: October 01, 2017 CHIEF COMPLAINT/REASON FOR CONSULTATION 1. Newly diagnosed rectal carcinoma, clinical T3 N0 M0. 2. History of adenocarcinoma of the prostate, T2c N0 M0. [place] 7 tumor treated with external beam radiotherapy in 2016. HISTORY OF PRESENT ILLNESS This is a pleasant 77-year-old gentleman who is well known to me. I was originally involved with his care back in mid 2015. At that time he was diagnosed with a [place] 7 [id number] differentiated adenocarcinoma of the prostate. Tumor occupied 20% to 90% of the core biopsy specimens, and five of six biopsy specimens were all positive from the right lobe of the gland. Two biopsy specimens out of six were positive from the left lobe of the gland. The patient had a prior history of TURP in 2006 and 2007. Pre- treatment PSA of 3.94 to 4.9 ng/mL. Most recent PSA is stable. Most recent PSA is stable at 1.1 ng/mL. The patient informed Gisselle Cervantes CNP, in June that he was experiencing rectal bleeding with bowel movements for approximately a month. She advised him to undergo a colonoscopy, which was immediately scheduled with Dr. Foy. The procedure was performed on September 18, 2017. A nonobstructing, large fungating and friable mass was noted to measure 6 x 11 cm. An adenomatous polyp was also removed at the procedure at 15 mm. Multiple biopsies were obtained which revealed adenocarcinoma of colonic origin, grade 2. 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 Molecular studies are pending. Staging evaluation was then requested which included a CT scan of the thorax, abdomen and pelvis which was obtained on September 23, 2017. Rectal wall thickening and infiltration of the perirectal fat was appreciated. No signs of any pelvic lymphadenopathy. The liver was unremarkable. 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 The lungs were unremarkable. The patient had an MRI scan of the pelvis as well. A lesion was noted in the mid rectum extending for a distance of 4.4 cm with thickening appreciated in the mid rectum. Transmural invasion into the perirectal fat was noted. No lymphadenopathy. Some minor changes in the low sacrum consistent with a prior radiotherapy effect. Films were reviewed with the patient in the office today on the computer. Laboratory studies reveal normal CBC and metabolic panel. On September 23, 2017, CEA tumor markers mildly elevated at 7.8 mg/mL on September 24, 2017. Presently the patient states he is moving his bowels on a regular daily basis. He denies any pain, pressure or tenesmus. Voiding function has been stable. The patient has been seen by Dr. Christianson for medical oncology recommendations this past week. He also would like to have an opinion with Dr. Hutson, and a consult has been booked on the schedule for next week. He is seen at this time to determine if additional radiotherapy is feasible at this time in a preoperative program, which would potentially involve both chemotherapy and radiation. The patient has been told by his surgeon that he most likely would be a candidate for LER resection based on tumor location. CURRENT MEDICATIONS 1. Acyclovir 800 mg q.day. 2. Diazepam 2.5 mg q.12 hours p.r.n. anxiety. 3. Tylenol p.r.n. pain. ALLERGIES 1. PENICILLIN. 2. SOY BEANS. PAST MEDICAL HISTORY * Prostate carcinoma. 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 * Prostate carcinoma with history listed above. PAST SURGICAL HISTORY * TURP times two. * Right inguinal hernia repair. * Prior amputation of a left toe. * Prior right ankle fracture requiring surgery. FAMILY HISTORY Patient is single. Father at age 86 with prostate carcinoma. Mother lived to age 90. Maternal grandfather and paternal grandfather both had prostate carcinoma. SOCIAL HISTORY Social alcohol use. Regularly exercises. COMPREHENSIVE REVIEW OF SYSTEMS Patient denies any significant weight loss of excessive fatigue. No respiratory complaints. No chest pain or palpitations. No GI complaints with the exception of intermittent rectal bleeding with bowel movements. No significant change in the caliber of the bowels, no pain. No symptoms at this time. No musculoskeletal pain. Mild anxiety. PHYSICAL EXAMINATION GENERAL: A pleasant 77-year-old male of medium build. VITALS: BP 112/66, pulse 64, respirations 16, O2 sat 91% on room air. HEENT: Exam is unremarkable. LUNGS: Clear bilaterally. HEART: Regular rate and rhythm, no audible murmur. ABDOMEN: Soft. No gross organomegaly. RECTAL: Exam was performed. The prostate was flat. The tumor can be palpated at the tip of the examining finger posteriorly. No blood on the glove. Good sphincter tone. EXTREMITIES: Reveal no edema or cyanosis or rash. IMPRESSION This is a pleasant 77-year-old gentleman with what appears to be a T3 grade 2 adenocarcinoma of the mid rectum. Tumor extends into the perirectal fat by MRI scan of the pelvis. The clinical size of the mass is listed above in the HPI in the endoscopic description. This appears to be in the mid rectum. The standard treatment would be a preoperative course of radiotherapy, plus either Xeloda or infusional 5-FU, followed by surgery in six to eight weeks. This is a more complex case since the patient has received primary radiotherapy to the prostate in mid 2015. Multiple options were reviewed with the patient today. Those options include: * Standard dose radiotherapy and chemotherapy for five weeks (if calculated doses allow...50Gy/28fxs +5FU or Xeloda) * Modified radiotherapy dose delivering 40 Gy in 12 fractions at 3.4 Gy per fraction (based on results of the small paper from PubMed literature review published in 2007). * Additional options would be 5 Gy times five fraction, which is the limited hypofractionated program that has been utilized in a phase 3 [place] trial. Chemotherapy details to be discussed with medical oncology for timing and duration. * FOLFOX program x4, re-eval followed by surgery or XRT hypofractionated boost ( plus surg if all acceptable cantidates medically) * CR rates typically 20-25% in pre-op programs, [place] greater than 80%.PET-CT prob easiest way to eval response plus proctoscopy. After careful deliberation about the case, I elected to proceed with reconstruction of the radiation doses to the rectum and presacral space with physics in the a.m. This should be relatively easy to accomplish with modern treatment planning computers. The goal of treatment would be to lower the risk of a local recurrence, particularly in the presacral space, and allow for potentially curative resection. The optimal delivery of chemotherapy with the radiation program will depend on the duration of the radiation program. Multiple treatment options were reviewed from excellent review in the up-to- date literature, written by Dr. Cantu and Dr. Chnadler out of [place] and [place], respectively. I would like to discuss the case with my Radiation Oncology colleagues in the morning, and the Medical Oncology team later in the week. He indicated he would like several opinions. Those appointments are in place. We will tentatively proceed with targeting simulation in the prone position on Saturday of this week. Treatment of any sort would be delayed approximately two weeks to allow effective planning and coordination of care. All questions were answered to the patient's satisfaction today. I will also touch base with him again after the final decisions are reached within the next 10 days. He is not having any obstructive symptoms at this time and fortunately his blood work is stable. Thank you for the referral and opportunity to review options with Mr. Justin today. More to follow. Dr.Tobin CHARLES
[~2017-11-26 13:51] MED LIST changes: +IBUP-136 PO; -IBUP200C71 PO; -PEGFILGRASTIM 6 MG/0.6 ML SYR SUBQ ONE
--- NOTE | 2017-12-09 18:46 | Oncology Note ---
EVENT DATE: December 09, 2017 DIAGNOSES 1. Rectal adenocarcinoma. 2. History of prostate cancer. 3. Anxiety. 4. History of shingles. 5. Right Jugular DVT (12/09/17) CHIEF COMPLAINT Right neck swelling and Pain with swallowing HISTORY OF PRESENT ILLNESS Tyrone Kwan is a 77-year-old male who has prostate cancer, [place] score of 7, moderately to poorly differentiated with 40% involvement, stage T2c N0 M0 diagnosed on August 01, 2015. Recently completed cycle four of FOLFOX chemotherapy as neoadjuvant treatment for his rectal adenocarcinoma. Patient presented to clinic for labs, and he complaint of non productive cough that started on 12/05/17 . He reports that he coughed strongly for quite some time, then he noticed swelling of is right neck and pain level 3 when swallowing. He reports one episode of overnight drenching sweat. He denies chest pain, No SOB, N/V/, no changes in bowel or bladder bladder, no active bleeding. On assessment right supraclavicular is with warm, with mild erythema, and minimal tenderness over the involved right neck area. Patient is hemodynamically stable, in no acute distress. ONCOLOGY HISTORY Initial PSA was 4.9 ng/mL, status post radiation therapy. Patient recently presented with rectal bleeding so the patient had a colonoscopy by Dr. Foy on September 18, 2017, and the patient was found to have a rectal mass, and the biopsy of that mass came back positive for poorly differentiated colonic adenocarcinoma. 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 Common bile duct dilatation was 1 cm with diffuse rectal wall thickening and mild infiltrative changes in the perirectal fat. CEA done on September 23, 2017 was high at 7.8. His chem panel was totally normal. CBC was also normal. CEA is high at 7.8. Pelvic MRI done on September 26, 2017 showed a newly diagnosed rectal cancer with irregular thickening of the mid rectum 2.5 cm above the anal verge, extending for a distance of 4.4 cm with possible transmural invasion of the perirectal fat. There is no evidence of adenopathy. There was indeterminate enhancing bone lesion in the right inferior sacrum measuring 2.7 cm. Metastasis cannot be excluded. Patient started neoadjuvant chemotherapy with FOLFOX chemotherapy on October 21, 2017. PAST MEDICAL HISTORY 1. Prostate cancer. 2. History of skin cancer. 3. History of shingles. PAST SURGICAL HISTORY 1. TURP times two. 2. Right inguinal hernia repair. 3. Amputated left toe. 4. Surgery for right ankle fracture. FAMILY HISTORY His father, maternal grandfather, paternal grandfather and brother all had prostate cancer. SOCIAL HISTORY Patient is single with no children. 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 He denies any abuse of tobacco or illicit drugs, but he drinks about five beers per week. CURRENT MEDICATIONS Acyclovir 800 mg daily as needed p.r.n. ALLERGIES 1. PENICILLIN which caused hives. 2. SOY COKER and SOY DUST which cause asthma-like attack. REVIEW OF SYSTEMS CONSTITUTIONAL: No appetite or weight change. No fever, chills. He has occasional night seats. No recent infection. HEENT: Ears: No tinnitus or hearing problem. Nose: No nasal discharge or epistaxis. Throat: No sore throat or mouth ulcers. Eyes: No diplopia or visual changes. RESPIRATORY: No shortness of breath. No expectoration or hemoptysis. He has some dry cough. CARDIOVASCULAR: No chest pain, orthopnea, or paroxysmal nocturnal dyspnea (PND) . No edema. No palpitations. GASTROINTESTINAL: He has constipation. GENITOURINARY: No hematuria or dysuria. MUSCULOSKELETAL: No pain in the muscles, joints or bones. NEUROLOGICAL: history of tingling and numbness in the fingers for a few days after chemotherapy and exposure to cold. No headaches or convulsions. HEMATOLOGIC/LYMPHATIC: No bleeding. He bruises easily. He is weak, tired and fatigued. No enlarged lymph nodes. SKIN: No skin rash or lumps. PSYCHIATRIC: No anxiety or depression. PHYSICAL EXAMINATION ECO -rides his back to his medical appointments GENERAL: Looks stable. Well-developed, well-nourished, and in no acute distress. VITAL SIGNS: Blood pressure 116/61, pulse 84 per minute, respirations 16 per minute, temperature 99.4, pulse ox 94% on room air. HEENT: Head: Atraumatic. No sinus tenderness to palpation. Eyes: No icterus or conjunctivitis. Mouth and throat: No oral thrush or mucositis. NECK: right supraclavicular warm, with mild erythema, and minimal tenderness over the involved right neck area LUNGS: Clear to auscultation and percussion bilaterally. HEART: Regular rate and rhythm. No gallops, murmurs, clicks or rubs. ABDOMEN: Soft and lax. No tenderness. No hepatosplenomegaly. No masses. EXTREMITIES: No cyanosis, clubbing or edema. LYMPHATICS: No peripheral lymphadenopathy. NEUROLOGICAL: Conscious, alert and oriented times three. No focal motor or sensory deficits. PSYCHIATRIC: Mood and affect appear normal. SKIN: No skin rash, bruise or purpuric eruption. DIAGNOSTIC DATA CBC showed white count 10.5, platelets 93,000. ANC 8.5. Chem panel totally normal. CEA is 6.4 which is down from 7.8. ASSESSMENT 1. Rectal adenocarcinoma with a mass infiltrating the wall of the perirectal fat, probably T3 lesion proved by pelvic MRI done September 26, 2017. Colonoscopy done September 18, 2017 did reveal rectal mass, and biopsy was positive for moderately differentiated colonic adenocarcinoma. 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 Patient started neoadjuvant chemotherapy with FOLFOX regimen for four cycles October 21, 2017. He is tolerating treatment very well so far. He developed thrombocytopenia, for which modification of the dose was done with better tolerance. He also developed nausea that responded better with adding Emend to his premedications. His current platelet count is 112,000. His poor bone marrow reserve most probably could be due to his previous irradiation of the prostate. The dose of chemotherapy decreased by 20% and and the bolus dose of 5-FU was discontinued. I am planning to proceed with fourth cycle of chemotherapy as scheduled. I will see him again in two weeks with CBC, chem panel, CEA. Patient will receive Neulasta after each cycle of chemotherapy on day three. 2. DVT Right Jugular supraclavicular. revealed by U/S measuring aprox. 2.9 cm. patient is asymptomatic and Hemodynamically stable. After discussion with Dr. Terry We initiated Lovenox 1mg/kg BID X2 Days first dose given at Clinic now , patient to return to clinic for remaining injections, and monitoring of treatment response and Labs including Pt, PTT INR monitoring. 2. Chemotherapy-induced thrombocytopenia. Current platelet count 93,000, Will continue the same chemotherapy if platelets of >/=100 3. Vitamin B12 deficiency. Anti-intrinsic factor antibodies and anti-parietal cell antibodies came back negative. His initial vitamin B12 level was 131. Will continue vitamin B supplement. 4. Anxiety, on Valium p.r.n. 5. History of shingles. Continue acyclovir 800 mg daily during chemotherapy. 6. Possible metastasis in the sacrum. This could be due to prostate cancer rather than rectal cancer. For this reason PSA is requested. PLAN 1. FOLFOX cycle number four with dose modification. 2. CBC, chem panel to be checked weekly. 3. Patient to return to clinic tomorrow for evaluation of treatment. Followed up by two weeks with CBC, chem panel, CEA. 4. Continue B12 supplement 1000 mcg intramuscularly. 5. Neulasta 6 mg subcutaneously day three of each cycle. 6. Patient to contact us for any new concerns or complaints.And to go to the Er if Any SOB, chest pain, active bleeding, dizziness, syncope. 7. RNs to flush port and check for patency if resistance or poor blood return a Dye study maybe appropriate. TIME SPENT: 40 minutes >35 minutes incudes but not limited to discussion, counselling and co-ordination~ of care. Discussion with other health care providers, record review, review of lab work, diagnostic tests. Plan discussed extensively with patient, and spouse. All the questions answered today. Thank you for the opportunity to be involved in the care of Tyrone Kwan. Billing Level: Return visit BIRD PADILLA, ONC Dec 09, 2017 18:46
== END 2017-12-29 ==
LOC: RAON 13:51
PROVIDERS: ATTEND Radiology Radiation Oncology
DX: Z51.0 Encounter for antineoplastic radiation therapy (principal); C18.9 Malignant neoplasm of colon, unspecified; C61 Malignant neoplasm of prostate; Z92.3 Personal history of irradiation; Z87.891 Personal history of nicotine dependence
CPT/HCPCS: 77290; G0463; 84153; 99212

== ENCOUNTER → 2017-12-24 | Outpatient (RCR) | payer MEDICARE ==
[2017-09-26 15:40] VITALS: BP 115/70
--- NOTE | 2017-09-26 18:53 | ONCOLOGY CONSULTATION ---
EVENT DATE: September 26, 2017 REFERRING PHYSICIAN Mitchell Foy MD PRIMARY CARE Disha Chun APRN THERMAL INTELLIGENCE ANALYST-C REASON FOR THE CONSULTATION Evaluation and management of rectal cancer. HISTORY OF PRESENT ILLNESS Patient is a 77-year-old male who has been diagnosed on August 01, 2015 with prostate cancer, [place] score of 7, moderately to poorly differentiated with 40 % involvement, stage T2c N0 M0. Initial PSA was 4.9 ng/mL, status post radiation therapy. Patient recently presented with rectal bleeding so the patient had a colonoscopy by Dr. Foy on September 18, 2017, and the patient was found to have a rectal mass, and the biopsy of that mass came back positive for poorly differentiated colonic adenocarcinoma. 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 Common bile duct dilatation was 1 cm with diffuse rectal wall thickening and mild infiltrative changes in the perirectal fat. CEA done on September 23, 2017 was high at 7.8. His chem panel was totally normal. CBC was also normal. PAST MEDICAL HISTORY 1. Prostate cancer. 2. History of skin cancer. 3. History of shingles. PAST SURGICAL HISTORY 1. TURP times two. 2. Right inguinal hernia repair. 3. Amputated left toe. 4. Surgery for right ankle fracture. FAMILY HISTORY His father, maternal grandfather, paternal grandfather and brother all had prostate cancer. SOCIAL HISTORY Patient is single with no children. 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 He denies any abuse of tobacco or illicit drugs, but he drinks about five beers per week. CURRENT MEDICATIONS Acyclovir 800 mg daily as needed p.r.n. ALLERGIES 1. PENICILLIN which caused hives. 2. SOY COKER and SOY DUST which cause asthma-like attack. REVIEW OF SYSTEMS CONSTITUTIONAL: No appetite or weight change. No fever, chills or sweating. No recent infection. HEENT: Ears: No tinnitus or hearing problem. Nose: No nasal discharge or epistaxis. Throat: No sore throat or mouth ulcers. Eyes: No diplopia or visual changes. RESPIRATORY: No shortness of breath. No cough, expectoration or hemoptysis. CARDIOVASCULAR: No chest pain, orthopnea, or paroxysmal nocturnal dyspnea (PND) . No edema. No palpitations. GASTROINTESTINAL: Patient had rectal bleeding. No nausea or vomiting. No diarrhea or constipation. No change in bowel movements. No heartburn or swallowing difficulties. No abdominal pain. No jaundice. No hematemesis, melena. GENITOURINARY: No hematuria or dysuria. MUSCULOSKELETAL: No pain in the muscles, joints or bones. NEUROLOGICAL: No tingling or numbness in the hands or feet. No headaches or convulsions. HEMATOLOGIC/LYMPHATIC: No bleeding or easy bruising. No weakness or fatigue. No enlarged lymph nodes. SKIN: No skin rash or lumps. PSYCHIATRIC: No anxiety or depression. PHYSICAL EXAMINATION GENERAL: Looks stable. Well-developed, well-nourished, and in no acute distress. VITAL SIGNS: Blood pressure 115/70, pulse 62 per minute, respirations 16 per minute, temperature 97.4, pulse ox 91% on room air. HEENT: Head: Atraumatic. No sinus tenderness to palpation. Eyes: No icterus or conjunctivitis. Mouth and throat: No oral thrush or mucositis. NECK: Supple. No cervical or supraclavicular lymphadenopathy. LUNGS: Clear to auscultation and percussion bilaterally. HEART: Regular rate and rhythm. No gallops, murmurs, clicks or rubs. ABDOMEN: Soft and lax. No tenderness. No hepatosplenomegaly. No masses. EXTREMITIES: No cyanosis, clubbing or edema. LYMPHATICS: No peripheral lymphadenopathy. NEUROLOGICAL: Conscious, alert and oriented times three. No focal motor or sensory deficits. PSYCHIATRIC: Mood and affect appear normal. SKIN: No skin rash, bruise or purpuric eruption. ASSESSMENT 1. Rectal adenocarcinoma. It seems that according to the CT chest, abdomen and pelvis that the mass is infiltrating the wall to the perirectal fat, so most probably to be T3. This is by the CT abdomen/chest done on September 23, 2017. Colonoscopy on September 18, 2017 did reveal the rectal mass and the biopsy was positive for moderately differentiated colonic adenocarcinoma, and there was also tubulovillous adenoma. Given this information and with his previous irradiation of prostate cancer done recently, I am not sure about the dosage, but I am planning to refer the patient to the radiation oncologist to see if the patient will be eligible for radiation therapy concurrent with chemotherapy for radiosensitization during radiation therapy for neoadjuvant treatment of rectal cancer. The plan of management will be chemoradiation as neoadjuvant treatment, to be followed by surgical resection and then adjuvant chemotherapy if indicated. For administration of chemotherapy especially with 5-FU intravenous continuous infusion, I am planning to refer the patient to Dr. Foy again for placement of a single lumen central port. I am planning to refer the patient also to Dr. Mclaughlin or Dr. Barksdale, our radiation therapy oncologists to decide about radiation therapy. I will see the patient after that with CBC, chem panel, to start his treatment with concurrent chemoradiation , neoadjuvant treatment for his rectal adenocarcinoma. I spent a long time with the patient explaining the plan of management, side effects expected from chemotherapy, and he is agreeable with such plan. 2. History of prostate cancer diagnosed on August 01, 2015 with stage T2c N0 M0. Initial PSA was 4.9 ng/mL. Tumor was moderately to poorly differentiated adenocarcinoma, [place] score 7 with 40% involvement status post radiation therapy. 3. Anxiety. I am planning to treat him with Valium 5 mg q.6 hourly p.r.n. 4. History of shingles on acyclovir 800 mg daily. We will continue the same during his treatment. PLAN 1. Radiation Therapy consultation. 2. Referral to Dr. Fyo for placement of a central port. 3. Patient to return after the above with CBC, chem panel and CEA, and start intravenous continuous infusion 5-FU concurrent with radiation therapy. 4. Patient to contact us for any new concerns or complaints. SOFÍAD
[2017-10-04 12:02] VITALS: BP 127/80
--- NOTE | 2017-10-04 18:52 | ONCOLOGY FOLLOW UP NOTE ---
EVENT DATE: October 04, 2017 DIAGNOSES 1. Rectal adenocarcinoma. 2. History of prostate cancer. 3. Anxiety. 4. History of shingles. CHIEF COMPLAINT Patient is here today for followup of his rectal adenocarcinoma. ONCOLOGY HISTORY Patient is a 77-year-old male who has been diagnosed on August 01, 2015 with prostate cancer, [place] score of 7, moderately to poorly differentiated with 40 % involvement, stage T2c N0 M0. Initial PSA was 4.9 ng/mL, status post radiation therapy. Patient recently presented with rectal bleeding so the patient had a colonoscopy by Dr. Foy on September 18, 2017, and the patient was found to have a rectal mass, and the biopsy of that mass came back positive for poorly differentiated colonic adenocarcinoma. 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 Common bile duct dilatation was 1 cm with diffuse rectal wall thickening and mild infiltrative changes in the perirectal fat. CEA done on September 23, 2017 was high at 7.8. His chem panel was totally normal. CBC was also normal. CEA is high at 7.8. Pelvic MRI done on September 26, 2017 showed a newly diagnosed rectal cancer with irregular thickening of the mid rectum 2.5 cm above the anal verge, extending for a distance of 4.4 cm with possible transmural invasion of the perirectal fat. There is no evidence of adenopathy. There was indeterminate enhancing bone lesion in the right inferior sacrum measuring 2.7 cm. Metastasis cannot be excluded. HISTORY OF PRESENT ILLNESS Patient is here today for followup of his rectal adenocarcinoma and patient is here today to discuss the options for treatment after he talks to Dr. Mclaughlin. PAST MEDICAL HISTORY 1. Prostate cancer. 2. History of skin cancer. 3. History of shingles. PAST SURGICAL HISTORY 1. TURP times two. 2. Right inguinal hernia repair. 3. Amputated left toe. 4. Surgery for right ankle fracture. FAMILY HISTORY His father, maternal grandfather, paternal grandfather and brother all had prostate cancer. SOCIAL HISTORY Patient is single with no children. 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 He denies any abuse of tobacco or illicit drugs, but he drinks about five beers per week. CURRENT MEDICATIONS Acyclovir 800 mg daily as needed p.r.n. ALLERGIES 1. PENICILLIN which caused hives. 2. SOY COKER and SOY DUST which cause asthma-like attack. REVIEW OF SYSTEMS CONSTITUTIONAL: No appetite or weight change. No fever, chills or sweating. No recent infection. HEENT: Ears: No tinnitus or hearing problem. Nose: No nasal discharge or epistaxis. Throat: No sore throat or mouth ulcers. Eyes: No diplopia or visual changes. RESPIRATORY: No shortness of breath. No cough, expectoration or hemoptysis. CARDIOVASCULAR: No chest pain, orthopnea, or paroxysmal nocturnal dyspnea (PND) . No edema. No palpitations. GASTROINTESTINAL: Patient had rectal bleeding. No nausea or vomiting. No diarrhea or constipation. No change in bowel movements. No heartburn or swallowing difficulties. No abdominal pain. No jaundice. No hematemesis, melena. GENITOURINARY: No hematuria or dysuria. MUSCULOSKELETAL: No pain in the muscles, joints or bones. NEUROLOGICAL: No tingling or numbness in the hands or feet. No headaches or convulsions. HEMATOLOGIC/LYMPHATIC: No bleeding or easy bruising. No weakness or fatigue. No enlarged lymph nodes. SKIN: No skin rash or lumps. PSYCHIATRIC: No anxiety or depression. PHYSICAL EXAMINATION GENERAL: Looks stable. Well-developed, well-nourished, and in no acute distress. VITAL SIGNS: Blood pressure 127/80, pulse 66 per minute, respirations 16 per minute, temperature 96.6, pulse ox 91% on room air. HEENT: Head: Atraumatic. No sinus tenderness to palpation. Eyes: No icterus or conjunctivitis. Mouth and throat: No oral thrush or mucositis. NECK: Supple. No cervical or supraclavicular lymphadenopathy. LUNGS: Clear to auscultation and percussion bilaterally. HEART: Regular rate and rhythm. No gallops, murmurs, clicks or rubs. ABDOMEN: Soft and lax. No tenderness. No hepatosplenomegaly. No masses. EXTREMITIES: No cyanosis, clubbing or edema. LYMPHATICS: No peripheral lymphadenopathy. NEUROLOGICAL: Conscious, alert and oriented times three. No focal motor or sensory deficits. PSYCHIATRIC: Mood and affect appear normal. SKIN: No skin rash, bruise or purpuric eruption. DIAGNOSTIC EVALUATION CBC showed a white count of 4.6, hemoglobin 15.6, hematocrit 43.4, platelets 181 ,000. Vitamin B12 level was low at 131, folate is 8.4, CEA is high at 7.8. MRI of the pelvis done on September 26, 2017 showed possible transmural invasion of the cancer into the perirectal fat, but there is no evidence of adenopathy. There was one lesion in the sacrum suggestive of metastatic disease. ASSESSMENT 1. Rectal adenocarcinoma. It seems that the mass is infiltrating the wall to the perirectal fat, so probably T3 lesion proved also by pelvic MRI done on September 26, 2017. Colonoscopy done September 18, 2017 did reveal the rectal mass and the biopsy was positive for moderately differentiated colonic adenocarcinoma. 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 Patient has been evaluated by Dr. Mclaughlin, radiation oncologist, and the patient was offered multiple options for radiation therapy, and he is here today to discuss the options. It seems that the patient does not like the idea of having radiation therapy before surgery, so the patient was offered today neoadjuvant chemotherapy with four cycles of FOLFOX, to be followed by surgery, to be followed by adjuvant chemoradiation, to be followed by adjuvant chemotherapy if indicated. I spent a long time with the patient explaining the plan of management, the logistics of it and the side effects expected, and it seems the patient is leaning forward for that option, but he would like to talk to Dr. Barksdale, the radiation oncologist, next week, and also Dr. Foy, and he will make his mind clear about further treatment. I am planning to see him next week to arrange to start the treatment the week after that. 2. Vitamin B12 deficiency with vitamin B12 level 131. I am planning to check the antiparietal cell antibody and intrinsic factor antibody to rule out the possibility of pernicious anemia. I will start also vitamin B12 shots 1000 mcg daily for a week, then weekly for four weeks, then once monthly after that. 3. Possible metastasis in the sacrum. I am planning to get a bone scan for further evaluation and management. 4. Anxiety. Patient using Valium p.r.n. 5. History of shingles on acyclovir 800 mg daily. We will continue the same during his treatment. PLAN 1. Await the patient's decision regarding further management. 2. Patient to return in one week for further evaluation and management. 3. Patient to contact us for any new concerns or complaints. [facility]
[2017-10-10 07:50] VITALS: BP 114/76
--- NOTE | 2017-10-10 19:38 | ONCOLOGY FOLLOW UP NOTE ---
EVENT DATE: October 10, 2017 DIAGNOSES 1. Rectal adenocarcinoma. 2. History of prostate cancer. 3. Anxiety. 4. History of shingles. CHIEF COMPLAINT Patient is here today for followup of his rectal adenocarcinoma. ONCOLOGY HISTORY Patient is a 77-year-old male who has been diagnosed on August 01, 2015 with prostate cancer, [place] score of 7, moderately to poorly differentiated with 40 % involvement, stage T2c N0 M0. Initial PSA was 4.9 ng/mL, status post radiation therapy. Patient recently presented with rectal bleeding so the patient had a colonoscopy by Dr. Foy on September 18, 2017, and the patient was found to have a rectal mass, and the biopsy of that mass came back positive for poorly differentiated colonic adenocarcinoma. 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 Common bile duct dilatation was 1 cm with diffuse rectal wall thickening and mild infiltrative changes in the perirectal fat. CEA done on September 23, 2017 was high at 7.8. His chem panel was totally normal. CBC was also normal. CEA is high at 7.8. Pelvic MRI done on September 26, 2017 showed a newly diagnosed rectal cancer with irregular thickening of the mid rectum 2.5 cm above the anal verge, extending for a distance of 4.4 cm with possible transmural invasion of the perirectal fat. There is no evidence of adenopathy. There was indeterminate enhancing bone lesion in the right inferior sacrum measuring 2.7 cm. Metastasis cannot be excluded. HISTORY OF PRESENT ILLNESS Patient is here today to discuss the management of his rectal adenocarcinoma again, after having multiple consultations with medical oncologists and radiation oncologists. He is complaining of some dry cough, but other than that he is doing fine currently. PAST MEDICAL HISTORY 1. Prostate cancer. 2. History of skin cancer. 3. History of shingles. PAST SURGICAL HISTORY 1. TURP times two. 2. Right inguinal hernia repair. 3. Amputated left toe. 4. Surgery for right ankle fracture. FAMILY HISTORY His father, maternal grandfather, paternal grandfather and brother all had prostate cancer. SOCIAL HISTORY Patient is single with no children. 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 He denies any abuse of tobacco or illicit drugs, but he drinks about five beers per week. CURRENT MEDICATIONS Acyclovir 800 mg daily as needed p.r.n. ALLERGIES 1. PENICILLIN which caused hives. 2. SOY COKER and SOY DUST which cause asthma-like attack. REVIEW OF SYSTEMS CONSTITUTIONAL: No appetite or weight change. No fever, chills or sweating. No recent infection. HEENT: Ears: No tinnitus or hearing problem. Nose: No nasal discharge or epistaxis. Throat: No sore throat or mouth ulcers. Eyes: No diplopia or visual changes. RESPIRATORY: No shortness of breath. No expectoration or hemoptysis. He has some dry cough. CARDIOVASCULAR: No chest pain, orthopnea, or paroxysmal nocturnal dyspnea (PND) . No edema. No palpitations. GASTROINTESTINAL: Patient had rectal bleeding. No nausea or vomiting. No diarrhea or constipation. No change in bowel movements. No heartburn or swallowing difficulties. No abdominal pain. No jaundice. No hematemesis, melena. GENITOURINARY: No hematuria or dysuria. MUSCULOSKELETAL: No pain in the muscles, joints or bones. NEUROLOGICAL: No tingling or numbness in the hands or feet. No headaches or convulsions. HEMATOLOGIC/LYMPHATIC: No bleeding or easy bruising. No weakness or fatigue. No enlarged lymph nodes. SKIN: No skin rash or lumps. PSYCHIATRIC: No anxiety or depression. PHYSICAL EXAMINATION GENERAL: Looks stable. Well-developed, well-nourished, and in no acute distress. HEENT: Head: Atraumatic. No sinus tenderness to palpation. Eyes: No icterus or conjunctivitis. Mouth and throat: No oral thrush or mucositis. NECK: Supple. No cervical or supraclavicular lymphadenopathy. LUNGS: Clear to auscultation and percussion bilaterally. HEART: Regular rate and rhythm. No gallops, murmurs, clicks or rubs. ABDOMEN: Soft and lax. No tenderness. No hepatosplenomegaly. No masses. EXTREMITIES: No cyanosis, clubbing or edema. LYMPHATICS: No peripheral lymphadenopathy. NEUROLOGICAL: Conscious, alert and oriented times three. No focal motor or sensory deficits. PSYCHIATRIC: Mood and affect appear normal. SKIN: No skin rash, bruise or purpuric eruption. ASSESSMENT 1. Rectal adenocarcinoma with a mass infiltrating the wall to the perirectal fat, probably T3 lesion proved by pelvic MRI done September 26, 2017. Colonoscopy done September 18, 2017 did reveal the rectal mass and the biopsy was positive for moderately differentiated colonic adenocarcinoma. 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 Patient was given different options of treatment and finally he made his mind clear about the treatment he prefers. Patient agrees to go for neoadjuvant chemotherapy to be followed by chemoradiation, then surgery, then adjuvant chemotherapy if indicated. I am planning to treat him with four cycles of FOLFOX chemotherapy, to be followed by chemoradiation after reevaluation. Patient is going to have a port placed on October 17, 2017. I am planning to start chemotherapy with FOLFOX on October 21, 2017, and I will see him on October 31, 2017 prior to his second course of chemotherapy with FOLFOX. I talked to him today about the logistics of administration of FOLFOX chemotherapy. I am planning to check his CBC, chem panel, CEA on October 21 and again on October 31, 2017. I am planning also to consider treatment with Neulasta after chemotherapy, given his age. 2. Vitamin B12 deficiency. His vitamin B12 level was 131. I will check his antiparietal and anti-intrinsic factor antibodies to rule out the possibility of pernicious anemia. I will start also vitamin B12 shots 1000 mcg daily for a week, then weekly for four weeks, then once monthly after that. 3. Anxiety, on Valium p.r.n. 5. History of shingles, on acyclovir 800 mg daily. I will continue the same during his chemotherapy. 6. Possible metastasis in the sacrum. I am planning to get a bone scan for further evaluation and management or PET scan. PLAN 1. Consider PET scan or bone scan. 2. Port placement on October 17, [address] Foy. 3. Start FOLFOX on October 21, 2017. 4. CBC, chem panel to be checked weekly after chemotherapy. 5. Patient to return on October 31, 2017. 6. Check CBC, chem panel and CEA on October 21, 018 and October 31, 2017. 7. Patient to contact us for any new concern or complaints. SOF[facility]AD
--- NOTE | 2017-10-10 20:31 | ONCOLOGY FOLLOW UP NOTE ---
EVENT DATE: October 10, 2017 REASON FOR FOLLOWUP 1. Rectal adenocarcinoma. 2. History of prostate adenocarcinoma status post radiation therapy. REASON FOR CONSULTATION Second opinion regarding management of rectal cancer. CHIEF COMPLAINT Patient feels well today. HISTORY OF PRESENT ILLNESS This is a very pleasant 77-year-old gentleman with a history of T2c Alisia 7 prostate adenocarcinoma diagnosed in July 2015. He is status post radiation therapy with appropriate drop in PSA. The patient recently presented with rectal bleeding, and colonoscopy was recommended. This was performed on September 18, 2017, and a rectal mass was found. Biopsy of the mass has revealed evidence for moderately differentiated adenocarcinoma. A subsequent CT chest on September 23, revealed diffuse rectal wall thickening and infiltrative changes in the perirectal fat. CEA at that time was elevated at 7.8. There was no evidence of metastatic disease on the CT scan. The patient subsequently underwent a pelvic MRI on September 26, 2017. The rectal malignancy was difficult to discern, but noted on the MRI was circumferential, regular thickening of the mid rectum 2.5 cm above the anal verge, extending for a distance of nearly 4.4 cm. There was also an irregularity of the right aspect of the wall of the rectum suggesting transmural invasion into perirectal fat. There was no evidence of pathologic lymphadenopathy. There was an indeterminate enhancing bone lesion in the right inferior sacrum measuring 2.7 x 1.3 cm. Posttreatment changes were noted form prostate cancer treatment, with presacral edema likely reflecting prior pelvic irradiation. The patient has visited with Medical Oncology and Radiation Oncology, and he is here for a second Medical Oncology opinion. He has no new complaints today. He has noticed no further rectal bleeding. He has had no other changes in his bowel habits. His appetite is good, and his weight has been stable. He has had no shortness of breath, chest pain, or cough. He has had no new urinary symptoms. PAST MEDICAL HISTORY 1. Prostate cancer, as above. 2. Reported history of skin cancer. 3. Reported history of shingles. PAST SURGICAL HISTORY 1. Status post TURP times two. 2. Status post repair of right inguinal hernia. 3. Status post amputation of toe of left foot. 4. Status post right ankle surgery for fracture. FAMILY HISTORY There is a history of prostate cancer in his father, maternal grandfather, paternal grandfather, and brother. 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 He is single. He has no history of alcohol abuse, but he does drink about five beers per week. He does not smoke, and there is no history of illicit drug use. CURRENT MEDICATIONS Acyclovir p.r.n. ALLERGIES 1. PENICILLIN. 2. He also has allergy to SOY COKER and SOY DUST which cause asthma-like symptoms. REVIEW OF SYSTEMS Otherwise negative and all systems were reviewed. VITAL SIGNS Temperature 96.9, blood pressure 114/76, heart rate is 69, respirations 16, oxygen saturation is 92% on room air. PHYSICAL EXAMINATION GENERAL: Patient is alert and oriented times three, in no apparent distress sitting in the exam room chair. He is interactive and quite pleasant. He appears healthy. HEENT: Exam reveals anicteric sclerae. NEUROLOGIC: Exam is grossly nonfocal and his gait is normal. SKIN: Exam reveals no concerning rash or lesion. EXTREMITIES: Exam reveals no edema, clubbing or cyanosis. There is no erythema or tenderness to palpation of the extremities. LABORATORY STUDIES Reviewed per the [facility] record. IMAGING AND PATHOLOGY Please see history of present illness. ASSESSMENT AND PLAN Rectal adenocarcinoma. I had a good visit with Tyrone today. We spent time discussing his diagnosis of rectal cancer, as well as his prior history of prostate cancer and his treatment with radiation therapy. His performance status is excellent. We spent time also reviewing his diagnostic studies performed today, to include colonoscopy with biopsy, CT scan, and subsequent MRI of the pelvis. We spent a good deal of time today discussing appropriate management of his rectal cancer. I have reviewed his situation with Radiation Oncology. There are obvious concerns for his radiation field, given his fairly recent radiation for prostate cancer. Given that this appears to be a T3 lesion , although there is no apparent pelvic lymphadenopathy, I do think that it would be quite reasonable for him to consider total neoadjuvant therapy, which would include FOLFOX times eight cycles at the outset. We spent time discussing the importance of multidisciplinary evaluation. I will present his case to our GI Tumor Board at the [facility] next week. We also moved on to discuss the potential role of radiation, as well as surgery in his care. He has seen Dr. Foy in Surgery. Routinely, the plan would be for him to receive chemoradiation after his neoadjuvant chemo is complete, but would want to discuss further his radiation oncology plan, given his treatment for prostate cancer. We discussed the differences in surgical technique and outcomes, to include APR and LAR, as well as less invasive techniques. Surgical management will depend somewhat on his response to neoadjuvant therapy. We moved on to discuss his plan for ongoing care. The patient initially wanted to see both myself and Dr. Christianson on a regular basis moving forward. As discussed, I think this would be redundant. As such, the patient will continue to follow up with Dr. Christianson and I will be available for consultation in the future. The patient does tentatively plan to visit with me after his neoadjuvant chemotherapy is complete. I will be back in touch with him with recommendations made from the GI Multidisciplinary meeting next week. Of note, I do think it may be reasonable for the patient to undergo a CT/PET scan, given the bony finding noted on his prior imaging. I am skeptical that bony metastatic disease exists, but it would be negron to make sure that this is not hypermetabolic in nature. The patient had several further questions for me today, and I believe I answered all of his questions to his satisfaction. I spent a total of 45 minutes with the patient today face to face, and 40 minutes of this was spent in direct counseling and coordination of care. MELVIN
[2017-10-22 09:05] VITALS: BP 115/68
[2017-10-22] MEDS: NS(*) 0.9% 500 ML BAG 500 ML IV PRN (09:09)
[2017-10-22] MEDS: LIDOCAINE/SOD BICARB 8.4% SYR ID PRN (09:09)
[2017-10-22] MEDS: PALONOSETRON 0.25 MG/5 ML VIAL IVP PRN (10:02)
[2017-10-22] MEDS: DEXAMETHASONE SOD PHOS 10MG/ML IVP PRN (10:03)
[2017-10-22] MEDS: DEXTROSE 5%(*) 100 ML BAG 100 ML IVPB PRN (11:52)
[2017-10-24] MEDS: HEPARIN FLSH (PORT) 500 UN/5ML IVP PRN (14:05)
--- NOTE | 2017-10-24 15:08 | Medical Nutrition Therapy ---
Nutrition Anthropometrics Height (Inches): 73.50 Height (Calculated Centimeters: 186.6900 Weight (Pounds): 191 César Nutrition Score: César Nutrition Risk Score: Dietary Referral Nutrition Risk Factors: Nutrition Risk Comment: Nutrition/Food History No Significant Nutr. HX Good Alcohol Use: Occassional Nutritional Education Nutrition Education Topic: Other (General information on eating during cancer treatment ) Learning Readiness: Eager Teaching Methods: Discussion, Handout Response to Teaching: Verbalize understanding Teaching Recipient: Patient Nutrition Counseling: Provided an introduction to nutrition during cancer treatment Completed PG-SGA - baseline score 0 I will monitor patients nutritional status as treatment progresses and provide additional nutrition education to manage symptoms or intake issues as needed Nutrition Monitoring & Eval RD Patient Assessment Time: [address] Assessment Type: RD Education Nutritional Comment: provided 15 min - MNT for cancer treatment Copies To Copies to: NATHANAEL BEARDEN MD, PAULA October 22, 2017 16:44
[2017-10-24 15:15] VITALS: BP 110/67
[2017-10-29 10:59] VITALS: BP 110/67
[2017-10-29 11:01] LABS: PLATELET COUNT, AUTOMATED 134 K/uL (150-450)
[2017-10-31 09:02] VITALS: BP 108/65
--- NOTE | 2017-10-31 15:47 | ONCOLOGY FOLLOW UP NOTE ---
EVENT DATE: October 31, 2017 DIAGNOSES 1. Rectal adenocarcinoma. 2. History of prostate cancer. 3. Anxiety. 4. History of shingles. CHIEF COMPLAINT Patient is here today for cycle number two of FOLFOX chemotherapy for his rectal adenocarcinoma for neoadjuvant treatment. ONCOLOGY HISTORY Patient is a 77-year-old male who has been diagnosed on August 01, 2015 with prostate cancer, Rancocas score of 7, moderately to poorly differentiated with 40 % involvement, stage T2c N0 M0. Initial PSA was 4.9 ng/mL, status post radiation therapy. Patient recently presented with rectal bleeding so the patient had a colonoscopy by Dr. Foy on September 18, 2017, and the patient was found to have a rectal mass, and the biopsy of that mass came back positive for poorly differentiated colonic adenocarcinoma. 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 Common bile duct dilatation was 1 cm with diffuse rectal wall thickening and mild infiltrative changes in the perirectal fat. CEA done on September 23, 2017 was high at 7.8. His chem panel was totally normal. CBC was also normal. CEA is high at 7.8. Pelvic MRI done on September 26, 2017 showed a newly diagnosed rectal cancer with irregular thickening of the mid rectum 2.5 cm above the anal verge, extending for a distance of 4.4 cm with possible transmural invasion of the perirectal fat. There is no evidence of adenopathy. There was indeterminate enhancing bone lesion in the right inferior sacrum measuring 2.7 cm. Metastasis cannot be excluded. Patient started neoadjuvant chemotherapy with FOLFOX chemotherapy on October 21, 2017. HISTORY OF PRESENT ILLNESS Patient is here today cycle number two of FOLFOX chemotherapy as neoadjuvant for his rectal adenocarcinoma. He tolerated the first cycle very well except for nausea which started about two days after starting his chemotherapy and stayed for about four days without much improvement with oral medications for nausea and vomiting. He had also one episode of diarrhea, but other than that really he did very well. PAST MEDICAL HISTORY 1. Prostate cancer. 2. History of skin cancer. 3. History of shingles. PAST SURGICAL HISTORY 1. TURP times two. 2. Right inguinal hernia repair. 3. Amputated left toe. 4. Surgery for right ankle fracture. FAMILY HISTORY His father, maternal grandfather, paternal grandfather and brother all had prostate cancer. SOCIAL HISTORY Patient is single with no children. 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 He denies any abuse of tobacco or illicit drugs, but he drinks about five beers per week. CURRENT MEDICATIONS Acyclovir 800 mg daily as needed p.r.n. ALLERGIES 1. PENICILLIN which caused hives. 2. SOY COKER and SOY DUST which cause asthma-like attack. REVIEW OF SYSTEMS CONSTITUTIONAL: No appetite or weight change. No fever, chills or sweating. No recent infection. HEENT: Ears: No tinnitus or hearing problem. Nose: No nasal discharge or epistaxis. Throat: No sore throat or mouth ulcers. Eyes: No diplopia or visual changes. RESPIRATORY: No shortness of breath. No expectoration or hemoptysis. He has some dry cough. CARDIOVASCULAR: No chest pain, orthopnea, or paroxysmal nocturnal dyspnea (PND) . No edema. No palpitations. GASTROINTESTINAL: Patient had rectal bleeding. He has nausea that started two days after starting chemotherapy with FOLFOX, and stayed about four days without much improvement with oral anti-nausea medication. He had one episode of diarrhea, but other than that he really did very well with his first cycle of chemotherapy with FOLFOX. GENITOURINARY: No hematuria or dysuria. MUSCULOSKELETAL: No pain in the muscles, joints or bones. NEUROLOGICAL: No tingling or numbness in the hands or feet. No headaches or convulsions. HEMATOLOGIC/LYMPHATIC: No bleeding or easy bruising. No weakness or fatigue. No enlarged lymph nodes. SKIN: No skin rash or lumps. PSYCHIATRIC: No anxiety or depression. PHYSICAL EXAMINATION GENERAL: Looks stable. Well-developed, well-nourished, and in no acute distress. VITAL SIGNS: Blood pressure 108/65, pulse 61 per minute, respirations 16 per minute, temperature 97, pulse ox 93% on room air. HEENT: Head: Atraumatic. No sinus tenderness to palpation. Eyes: No icterus or conjunctivitis. Mouth and throat: No oral thrush or mucositis. NECK: Supple. No cervical or supraclavicular lymphadenopathy. LUNGS: Clear to auscultation and percussion bilaterally. HEART: Regular rate and rhythm. No gallops, murmurs, clicks or rubs. ABDOMEN: Soft and lax. No tenderness. No hepatosplenomegaly. No masses. EXTREMITIES: No cyanosis, clubbing or edema. LYMPHATICS: No peripheral lymphadenopathy. NEUROLOGICAL: Conscious, alert and oriented times three. No focal motor or sensory deficits. PSYCHIATRIC: Mood and affect appear normal. SKIN: No skin rash, bruise or purpuric eruption. DIAGNOSTIC DATA CBC showed white count 3.7, hemoglobin 14.4, hematocrit 39.8, platelets 134, 000. Chem panel totally normal except blood sugar 115. CEA is 7.8. ASSESSMENT 1. Rectal adenocarcinoma with a mass infiltrating the wall of the perirectal fat, probably T3 lesion proved by pelvic MRI done September 26, 2017. Colonoscopy done September 18, 2017 did reveal rectal mass, and biopsy was positive for moderately differentiated colonic adenocarcinoma. 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 Patient started neoadjuvant chemotherapy with FOLFOX regimen for four cycles on October 21, 2017. He tolerated the first cycle very well without much complication except for marked nausea started two days after treatment and stayed for about four days, did not respond much well to his antinausea medication. Other than that really he did very well. His CEA is mildly elevated at 7.8. I am planning to monitor CEA with his treatment. I will proceed with his second cycle, and I will consider treatment with Neulasta after his chemotherapy because of his age. 2. Chemotherapy-induced nausea. I am planning to add Emend 150 mg intravenously as premedication with Aloxi and Decadron as a premedication for his treatment. 3. Vitamin B12 deficiency. His B12 level was 131. I will check antiparietal and anti-intrinsic factor antibodies to rule out the possibility of pernicious anemia. I will start B12 shots 1000 mcg daily for a week, then weekly for four weeks, then once monthly after that. 4. Anxiety, on Valium p.r.n. 5. History of shingles, on acyclovir 800 mg daily. I will continue the same during his chemotherapy. 6. Possible metastasis in the sacrum. I will consider PET scan for further evaluation, or bone scan. PLAN 1. FOLFOX cycle number two. 2. CBC, chem panel to be checked weekly. 3. Patient to return in two weeks with CBC, chem panel, CEA. 4. Vitamin B12 1000 mcg intramuscularly daily for one week, then weekly for four weeks, then once a month after that. 5. Check antiparietal and anti-intrinsic factor antibodies to rule out the possibility of pernicious anemia. 6. Patient to contact us for any new concern or complaints. 7. Add Emend to his premedication for nausea and vomiting. MTDD
[2017-11-05 09:08] VITALS: BP 113/71
[2017-11-05] MEDS: LIDOCAINE/SOD BICARB 8.4% SYR ID PRN (09:21)
[2017-11-05] MEDS: DEXAMETHASONE SOD PHOS 10MG/ML IVP PRN (10:30)
[2017-11-05] MEDS: PALONOSETRON 0.25 MG/5 ML VIAL IVP PRN (10:30)
[2017-11-05] MEDS: CYANOCOBALAMIN 1000MCG/ML VIAL IM ONLY PRN (10:39)
[2017-11-05] MEDS: FOSAPREPITANT DIM 150 MG/5 ML 150 MG in NS(*) 0.9% 250 ML BAG 245 ML IVPB PRN (10:48)
[2017-11-05] MEDS: DEXTROSE 5%(*) 100 ML BAG 100 ML IVPB PRN (11:23)
[2017-11-05 13:53] VITALS: BP 109/69
--- NOTE | 2017-11-05 16:05 | Medical Nutrition Therapy ---
Nutrition Anthropometrics Height (Inches): 73.50 Height (Calculated Centimeters: 186.6900 Weight (Pounds): 190 (pt stated wt per his scale, usual wt 194-195) César Nutrition Score: éCsar Nutrition Risk Score: Dietary Referral Nutrition Risk Factors: Nutrition Risk Comment: Nutrition/Food History Patient states he had decreased intake and appetite d/t nausea for 4-5 day Improving Alcohol Use: Occassional Amount of Alcohol Used: 3 beers on Saturday Nutritional Diagnosis Energy Requirement: 2700 Protein Requirement: 88 Fluid Requirement: 2700 Nutritional Needs Comment: pt states he eats high fiber diet Nutrition Monitoring & Eval Nutrition Monitoring: Will continue to monitor nutrition impact symptoms and provide recommendations as needed RD Patient Assessment Time: [address] Assessment Type: RD Re-Assessment Patient Nutrition Acuity: 2-Moderate BETSY PICHARDO November 05, 2017 16:05
[2017-11-06 10:25] VITALS: BP 97/57
[2017-11-06] MEDS: CYANOCOBALAMIN 1000MCG/ML VIAL IM ONLY PRN (10:25)
[2017-11-07 13:07] VITALS: BP 98/55
[2017-11-07] MEDS: HEPARIN FLSH (PORT) 500 UN/5ML IVP PRN (13:10)
[2017-11-07] MEDS: CYANOCOBALAMIN 1000MCG/ML VIAL IM ONLY PRN (13:10)
[2017-11-08] MEDS: CYANOCOBALAMIN 1000MCG/ML VIAL IM ONLY PRN (10:10)
[2017-11-08 10:13] VITALS: BP 106/59
[2017-11-09 13:34] VITALS: BP 116/61
[2017-11-09] MEDS: CYANOCOBALAMIN 1000MCG/ML VIAL IM ONLY PRN (13:41)
[2017-11-10 13:29] VITALS: BP 118/68
[2017-11-10] MEDS: CYANOCOBALAMIN 1000MCG/ML VIAL IM ONLY PRN (13:33)
[2017-11-11] MEDS: CYANOCOBALAMIN 1000MCG/ML VIAL IM ONLY PRN (10:05)
[2017-11-11 10:18] VITALS: BP 102/60
[2017-11-12 11:03] LABS: PLATELET COUNT, AUTOMATED 41 K/uL (150-450)
[2017-11-12 11:48] VITALS: BP 101/61
[2017-11-14 09:38] VITALS: BP 110/67
--- NOTE | 2017-11-14 15:15 | ONCOLOGY FOLLOW UP NOTE ---
EVENT DATE: November 14, 2017 DIAGNOSES 1. Rectal adenocarcinoma. 2. History of prostate cancer. 3. Anxiety. 4. History of shingles. CHIEF COMPLAINT Patient is here today for cycle number three of FOLFOX chemotherapy for his rectal adenocarcinoma as neoadjuvant treatment. ONCOLOGY HISTORY Patient is a 77-year-old male who has been diagnosed on August 01, 2015 with prostate cancer, Alisia score of 7, moderately to poorly differentiated with 40 % involvement, stage T2c N0 M0. Initial PSA was 4.9 ng/mL, status post radiation therapy. Patient recently presented with rectal bleeding so the patient had a colonoscopy by Dr. Foy on September 18, 2017, and the patient was found to have a rectal mass, and the biopsy of that mass came back positive for poorly differentiated colonic adenocarcinoma. 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 Common bile duct dilatation was 1 cm with diffuse rectal wall thickening and mild infiltrative changes in the perirectal fat. CEA done on September 23, 2017 was high at 7.8. His chem panel was totally normal. CBC was also normal. CEA is high at 7.8. Pelvic MRI done on September 26, 2017 showed a newly diagnosed rectal cancer with irregular thickening of the mid rectum 2.5 cm above the anal verge, extending for a distance of 4.4 cm with possible transmural invasion of the perirectal fat. There is no evidence of adenopathy. There was indeterminate enhancing bone lesion in the right inferior sacrum measuring 2.7 cm. Metastasis cannot be excluded. Patient started neoadjuvant chemotherapy with FOLFOX chemotherapy on October 21, 2017. HISTORY OF PRESENT ILLNESS Patient is here today cycle number three of FOLFOX chemotherapy as neoadjuvant treatment for his rectal adenocarcinoma. Patient is complaining of night sweats occasionally. He has some nausea. He has soft stool, but he is using magnesium supplement. He has tingling and numbness in his fingers for a few days after chemotherapy and exposure to cold. He bruises easily. He is weak, tired and fatigued. PAST MEDICAL HISTORY 1. Prostate cancer. 2. History of skin cancer. 3. History of shingles. PAST SURGICAL HISTORY 1. TURP times two. 2. Right inguinal hernia repair. 3. Amputated left toe. 4. Surgery for right ankle fracture. FAMILY HISTORY His father, maternal grandfather, paternal grandfather and brother all had prostate cancer. SOCIAL HISTORY Patient is single with no children. 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 He denies any abuse of tobacco or illicit drugs, but he drinks about five beers per week. CURRENT MEDICATIONS Acyclovir 800 mg daily as needed p.r.n. ALLERGIES 1. PENICILLIN which caused hives. 2. SOY COKER and SOY DUST which cause asthma-like attack. REVIEW OF SYSTEMS CONSTITUTIONAL: No appetite or weight change. No fever, chills. He has occasional night seats. No recent infection. HEENT: Ears: No tinnitus or hearing problem. Nose: No nasal discharge or epistaxis. Throat: No sore throat or mouth ulcers. Eyes: No diplopia or visual changes. RESPIRATORY: No shortness of breath. No expectoration or hemoptysis. He has some dry cough. CARDIOVASCULAR: No chest pain, orthopnea, or paroxysmal nocturnal dyspnea (PND) . No edema. No palpitations. GASTROINTESTINAL: He has nausea which is getting better after adding Emend to his premedication. GENITOURINARY: No hematuria or dysuria. MUSCULOSKELETAL: No pain in the muscles, joints or bones. NEUROLOGICAL: He has tingling and numbness in the fingers for a few days after chemotherapy and exposure to cold. No headaches or convulsions. HEMATOLOGIC/LYMPHATIC: No bleeding. He bruises easily. He is weak, tired and fatigued. No enlarged lymph nodes. SKIN: No skin rash or lumps. PSYCHIATRIC: No anxiety or depression. PHYSICAL EXAMINATION GENERAL: Looks stable. Well-developed, well-nourished, and in no acute distress. VITAL SIGNS: Blood pressure 110/67, pulse 62 per minute, respirations 16 per minute, temperature 97.3, pulse ox 90% on room air. HEENT: Head: Atraumatic. No sinus tenderness to palpation. Eyes: No icterus or conjunctivitis. Mouth and throat: No oral thrush or mucositis. NECK: Supple. No cervical or supraclavicular lymphadenopathy. LUNGS: Clear to auscultation and percussion bilaterally. HEART: Regular rate and rhythm. No gallops, murmurs, clicks or rubs. ABDOMEN: Soft and lax. No tenderness. No hepatosplenomegaly. No masses. EXTREMITIES: No cyanosis, clubbing or edema. LYMPHATICS: No peripheral lymphadenopathy. NEUROLOGICAL: Conscious, alert and oriented times three. No focal motor or sensory deficits. PSYCHIATRIC: Mood and affect appear normal. SKIN: No skin rash, bruise or purpuric eruption. DIAGNOSTIC DATA CBC showed white count 6.3, hemoglobin 14.1, hematocrit 39.8, platelets 41,000. Chem panel totally normal except blood sugar 119, calcium 8.3, total protein 5.8, albumin 3.3. Intrinsic factor antibodies and parietal cell antibodies came back negative. ASSESSMENT 1. Rectal adenocarcinoma with a mass infiltrating the wall of the perirectal fat, probably T3 lesion proved by pelvic MRI done September 26, 2017. Colonoscopy done September 18, 2017 did reveal rectal mass, and biopsy was positive for moderately differentiated colonic adenocarcinoma. 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 Patient started neoadjuvant chemotherapy with FOLFOX regimen for four cycles October 21, 2017. He tolerated the first cycle very well except for nausea which is getting better after adding Emend to his treatment. After his second cycle it seems that he developed thrombocytopenia significant. His platelet count the first week after chemotherapy was down to 41,000. Patient received radiation of the prostate before, which could decrease his bone marrow reserve for this reason. I am planning to decrease the dose the chemotherapy. I am planning to omit the bolus dose of 5-FU, and I will decrease the dose of the rest of the chemotherapy by about 20%. I am planning to monitor his platelet count prior to his next cycle of chemotherapy which is supposed to be next week, and if the platelet count is less than 100,000 we will delay the treatment for another week. I explained that to the patient. The patient is agreeable with the plan of management. I am planning to see him two weeks after the next cycle of chemotherapy with CBC, chem panel, CEA and PSA. Patient will receive Neulasta after each cycle of chemotherapy given is age and previous irradiation of the pelvis. 2. Chemotherapy-induced nausea. Getting better after adding Emend intravenously to his premedication. 3. Chemotherapy-induced thrombocytopenia. Current platelet count 41,000. I am planning to omit the bolus dose of 5-FU and decrease the rest of chemotherapy by 20%. Will continue to monitor the platelet count every week. 4. Vitamin B12 deficiency. Anti-intrinsic factor antibodies and anti-parietal cell antibodies came back negative. His initial vitamin B12 level was low at 131. I am planning to repeat his level in two months after starting the B12 supplement parentally. 5. Anxiety, on Valium p.r.n. 6. History of shingles, on acyclovir 800 mg daily. Will continue the same during chemotherapy. 7. Possible metastasis in the sacrum. This could be due to his prostate cancer rather than rectal cancer. I am planning to check the PSA and if it is high I will request a bone scan. PLAN 1. FOLFOX cycle three after dose modification if the platelet count is above 100,000. 2. CBC, chem panel to be checked weekly. 3. Patient to return in two weeks after chemotherapy with CBC, chem panel, CEA. 4. Continue B12 supplement 1000 mcg intramuscularly. 5. Patient to contact us for any new concern or complaints. MTDD
[2017-11-19 09:25] VITALS: BP 106/63
--- NOTE | 2017-11-20 18:37 | ONCOLOGY FOLLOW UP NOTE ---
EVENT DATE: November 20, 2017 REASON FOR FOLLOWUP 1. Rectal adenocarcinoma. 2. History of prostate cancer. INTERIM HISTORY Tyrone returns to clinic for a follow-up visit. Since our last visit, he has initiated neoadjuvant FOLFOX chemotherapy under the direction of Meghan wilkins at the [facility]. He reports that he has been feeling tired, but not unexpectedly so. He has had some problems with nausea, and he is working on getting this under control with medications at home. He has not had vomiting, however. He reports no new pain. He has had some bowel irregularity. He reports no new urinary symptoms, but he does have to get up multiple times at night to urinate. He is concerned about his platelet count today, and he is curious about recent changes made in his treatment regimen. REVIEW OF SYSTEMS Otherwise negative, and all systems were reviewed. PAST MEDICAL HISTORY 1. Prostate cancer, as above. 2. Reported history of skin cancer. 3. Reported history of shingles. PAST SURGICAL HISTORY 1. Status post TURP times two. 2. Status post repair of right inguinal hernia. 3. Status post amputation of toe of left foot. 4. Status post right ankle surgery for fracture. FAMILY HISTORY There is a history of prostate cancer in his father, maternal grandfather, paternal grandfather, and brother. 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 He is single. He has no history of alcohol abuse, but he does drink about five beers per week. He does not smoke, and there is no history of illicit drug use. CURRENT MEDICATIONS 1. Home antiemetics. 2. Colace p.r.n. 3. Oxycodone/acetaminophen p.r.n. 4. Tylenol p.r.n. 5. Valium p.r.n. 6. Acyclovir. ALLERGIES 1. PENICILLIN G. 2. SOY COKER. VITAL SIGNS Temperature 97.0, blood pressure 124/72, heart rate is 85, respirations 16, oxygen saturation is 94% on room air. PHYSICAL EXAMINATION GENERAL: Patient is alert and oriented times three, in no apparent distress sitting in the exam room chair. He appears somewhat tired, but otherwise healthy. He is interactive and pleasant. HEENT: Exam reveals anicteric sclerae. NEUROLOGIC: Exam is grossly nonfocal and his gait is normal. EXTREMITIES: Exam reveals no edema, clubbing or cyanosis. SKIN: Exam reveals no concerning rash or lesion. LABORATORY STUDIES Reviewed per the [facility] record. IMAGING None today. ASSESSMENT AND PLAN Rectal adenocarcinoma. I visited with Tyrone in clinic today, although he had just visited with Dr. Christianson here several days ago. We spent time discussing his oncologic history, as well as his experience with neoadjuvant FOLFOX chemotherapy to date. He has tolerated treatment fairly well, with the exception of nausea that he is trying to get under better control. He is also concerned about his platelet count. We spent a good deal of time discussing this today, and I would agree that some of his thrombocytopenia is likely a result of his past radiation therapy, obviously in addition to his current chemotherapy. I agree with decisions recently made in terms of dose reductions by Dr. Christianson. We spent some time also today discussing that his care at this point with two medical oncologists in the same clinic is redundant. I have recommended strongly that he follow up with Dr. Christianson, and that if he does want to see me in the future in consultation, I think it would not be unreasonable to visit again at the time that he finishes his neoadjuvant chemotherapy. I would not, however, think that this is absolutely necessary. We also discussed management of his anxiety. Followup with me will be at the discretion of the patient and Dr. Christianson. [facility]
[2017-11-26 10:07] VITALS: BP 114/67
[2017-11-26] MEDS: DEXAMETHASONE SOD PHOS 10MG/ML IVP PRN (10:59)
[2017-11-26] MEDS: PALONOSETRON 0.25 MG/5 ML VIAL IVP PRN (10:59)
[2017-11-26] MEDS: NS(*) 0.9% 500 ML BAG 500 ML IV PRN (11:05)
[2017-11-26] MEDS: FOSAPREPITANT DIM 150 MG/5 ML 150 MG in NS(*) 0.9% 250 ML BAG 245 ML IVPB PRN (11:44)
[2017-11-26 14:38] VITALS: BP 129/69
[2017-11-26] MEDS: DEXTROSE 5%(*) 100 ML BAG 100 ML IVPB PRN (16:07)
[2017-11-28] MEDS: CYANOCOBALAMIN 1000MCG/ML VIAL IM ONLY PRN (13:07)
[2017-11-28] MEDS: HEPARIN FLSH (PORT) 500 UN/5ML IVP PRN (13:08)
[2017-11-28 13:13] VITALS: BP 108/58
[2017-11-28 14:01] VITALS: BP 108/58
--- NOTE | 2017-11-28 19:39 | ONCOLOGY FOLLOW UP NOTE ---
EVENT DATE: November 28, 2017 DIAGNOSES 1. Rectal adenocarcinoma. 2. History of prostate cancer. 3. Anxiety. 4. History of shingles. CHIEF COMPLAINT Patient is here today for cycle number four of FOLFOX chemotherapy for his rectal adenocarcinoma as neoadjuvant treatment. ONCOLOGY HISTORY Patient is a 77-year-old male who has been diagnosed on August 01, 2015 with prostate cancer, [place] score of 7, moderately to poorly differentiated with 40 % involvement, stage T2c N0 M0. Initial PSA was 4.9 ng/mL, status post radiation therapy. Patient recently presented with rectal bleeding so the patient had a colonoscopy by Dr. Foy on September 18, 2017, and the patient was found to have a rectal mass, and the biopsy of that mass came back positive for poorly differentiated colonic adenocarcinoma. 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 Common bile duct dilatation was 1 cm with diffuse rectal wall thickening and mild infiltrative changes in the perirectal fat. CEA done on September 23, 2017 was high at 7.8. His chem panel was totally normal. CBC was also normal. CEA is high at 7.8. Pelvic MRI done on September 26, 2017 showed a newly diagnosed rectal cancer with irregular thickening of the mid rectum 2.5 cm above the anal verge, extending for a distance of 4.4 cm with possible transmural invasion of the perirectal fat. There is no evidence of adenopathy. There was indeterminate enhancing bone lesion in the right inferior sacrum measuring 2.7 cm. Metastasis cannot be excluded. Patient started neoadjuvant chemotherapy with FOLFOX chemotherapy on October 21, 2017. HISTORY OF PRESENT ILLNESS Patient is here today for cycle number four of FOLFOX chemotherapy as neoadjuvant treatment for his rectal adenocarcinoma. He is doing fine currently. His bowel movements are much better. He is feeling better in himself. Apart from having some constipation sometimes, patient does not have any other problem. PAST MEDICAL HISTORY 1. Prostate cancer. 2. History of skin cancer. 3. History of shingles. PAST SURGICAL HISTORY 1. TURP times two. 2. Right inguinal hernia repair. 3. Amputated left toe. 4. Surgery for right ankle fracture. FAMILY HISTORY His father, maternal grandfather, paternal grandfather and brother all had prostate cancer. SOCIAL HISTORY Patient is single with no children. 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 He denies any abuse of tobacco or illicit drugs, but he drinks about five beers per week. CURRENT MEDICATIONS Acyclovir 800 mg daily as needed p.r.n. ALLERGIES 1. PENICILLIN which caused hives. 2. SOY COKER and SOY DUST which cause asthma-like attack. REVIEW OF SYSTEMS CONSTITUTIONAL: No appetite or weight change. No fever, chills. He has occasional night seats. No recent infection. HEENT: Ears: No tinnitus or hearing problem. Nose: No nasal discharge or epistaxis. Throat: No sore throat or mouth ulcers. Eyes: No diplopia or visual changes. RESPIRATORY: No shortness of breath. No expectoration or hemoptysis. He has some dry cough. CARDIOVASCULAR: No chest pain, orthopnea, or paroxysmal nocturnal dyspnea (PND) . No edema. No palpitations. GASTROINTESTINAL: He has constipation. GENITOURINARY: No hematuria or dysuria. MUSCULOSKELETAL: No pain in the muscles, joints or bones. NEUROLOGICAL: He has tingling and numbness in the fingers for a few days after chemotherapy and exposure to cold. No headaches or convulsions. HEMATOLOGIC/LYMPHATIC: No bleeding. He bruises easily. He is weak, tired and fatigued. No enlarged lymph nodes. SKIN: No skin rash or lumps. PSYCHIATRIC: No anxiety or depression. PHYSICAL EXAMINATION GENERAL: Looks stable. Well-developed, well-nourished, and in no acute distress. VITAL SIGNS: Blood pressure 108/58, pulse 47 per minute, respirations 16 per minute, temperature 97.4, pulse ox 93% on room air. HEENT: Head: Atraumatic. No sinus tenderness to palpation. Eyes: No icterus or conjunctivitis. Mouth and throat: No oral thrush or mucositis. NECK: Supple. No cervical or supraclavicular lymphadenopathy. LUNGS: Clear to auscultation and percussion bilaterally. HEART: Regular rate and rhythm. No gallops, murmurs, clicks or rubs. ABDOMEN: Soft and lax. No tenderness. No hepatosplenomegaly. No masses. EXTREMITIES: No cyanosis, clubbing or edema. LYMPHATICS: No peripheral lymphadenopathy. NEUROLOGICAL: Conscious, alert and oriented times three. No focal motor or sensory deficits. PSYCHIATRIC: Mood and affect appear normal. SKIN: No skin rash, bruise or purpuric eruption. DIAGNOSTIC DATA CBC showed white count 4000, hemoglobin 14.4, hematocrit 40.5, platelets 112, 000. ANC 2.1. Chem panel totally normal, except AST 36. CEA is 6.4 which is down from 7.8. ASSESSMENT 1. Rectal adenocarcinoma with a mass infiltrating the wall of the perirectal fat, probably T3 lesion proved by pelvic MRI done September 26, 2017. Colonoscopy done September 18, 2017 did reveal rectal mass, and biopsy was positive for moderately differentiated colonic adenocarcinoma. 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 Patient started neoadjuvant chemotherapy with FOLFOX regimen for four cycles October 21, 2017. He is tolerating treatment very well so far. He developed thrombocytopenia, for which modification of the dose was done with better tolerance. He also developed nausea that responded better with adding Emend to his premedications. His current platelet count is 112,000. His poor bone marrow reserve most probably could be due to his previous irradiation of the prostate. The dose of chemotherapy decreased by 20% and and the bolus dose of 5-FU was discontinued. I am planning to proceed with fourth cycle of chemotherapy as scheduled. I will see him again in two weeks with CBC, chem panel, CEA. Patient will receive Neulasta after each cycle of chemotherapy on day three. 2. Chemotherapy-induced thrombocytopenia. Current platelet count 112,000, up from 41,000 after modification of chemotherapy dose. Will continue the same chemotherapy with modification. 3. Vitamin B12 deficiency. Anti-intrinsic factor antibodies and anti-parietal cell antibodies came back negative. His initial vitamin B12 level was 131. Will continue vitamin B supplement. 4. Anxiety, on Valium p.r.n. 5. History of shingles. Continue acyclovir 800 mg daily during chemotherapy. 6. Possible metastasis in the sacrum. This could be due to prostate cancer rather than rectal cancer. For this reason PSA is requested. PLAN 1. FOLFOX cycle number four with dose modification. 2. CBC, chem panel to be checked weekly. 3. Patient to return in two weeks with CBC, chem panel, CEA. 4. Continue B12 supplement 1000 mcg intramuscularly. 5. Neulasta 6 mg subcutaneously day three of each cycle. 6. Patient to contact us for any new concerns or complaints. MTDD
[2017-12-03 10:08] VITALS: BP 121/58
[2017-12-03 10:13] LABS: PLATELET COUNT, AUTOMATED 92 K/uL (150-450)
[2017-12-09 14:33] LABS: PLATELET COUNT, AUTOMATED 93 K/uL (150-450)
[2017-12-09 16:21] VITALS: BP 111/67
--- NOTE | 2017-12-09 17:53 | RADIOLOGY IMAGING REPORT ---
FACILITY: [facility] - [place] PATIENT NAME: Tyrone Justin : 1940 MR: [id number] V: [id number] EXAM DATE: ORDERING PHYSICIAN: BIRD PADILLA TECHNOLOGIST: Location: [facility] - [place] Patient: Tyrone Justin : 1940 Visit/Account:[id number] Date of Sevice: 12/09/2017 Bilateral upper extremity venous ultrasound HISTORY: Rule out blood clots COMPARISON: None. FINDINGS: Grayscale compression, duplex and color Doppler interrogation of the right and left upper extremity v eins was performed. Jugular vein - clot noted within the right internal jugular vein which is noncompressible. Left jugul ar vein patent Subclavian vein - subclavian vein patent. Small tongue of clot extending into the right subclavian ve in. Left subclavian vein patent Axillary vein - bilaterally negative Basilic vein - negative bilaterally Cephalic vein - negative bilaterally Brachial veins - negative bilaterally IMPRESSION: 1. Noncompressible clot in the right internal jugular vein from its mid to distal aspect. Small tongu e of clot extending into the right jugular vein. 2. No DVT noted in the right arm. 3. No DVT noted in the left arm or in the left jugular or subclavian veins. Report Dictated By: Alexy Triplett MD at 12/09/2017 5:36 PM Report E-Signed By: Alexy Triplett MD at 12/09/2017 5:49 PM WSN:[id number]
[2017-12-10] MEDS: LIDOCAINE/SOD BICARB 8.4% SYR ID PRN (09:49)
[2017-12-10] MEDS: CYANOCOBALAMIN 1000MCG/ML VIAL IM ONLY PRN (09:50)
[2017-12-10 09:57] VITALS: BP 107/63
[2017-12-10 10:13] LABS: INR 1.08
[2017-12-10] MEDS: HEPARIN FLSH (PORT) 500 UN/5ML IVP PRN (10:47)
[2017-12-16] MEDS: CYANOCOBALAMIN 1000MCG/ML VIAL IM ONLY PRN (11:40)
[2017-12-16 11:51] LABS: PLATELET COUNT, AUTOMATED 157 K/uL (150-450)
[2017-12-16 12:02] VITALS: BP 120/73
[2017-12-17 08:56] VITALS: BP 120/68
[2017-12-17] MEDS: NS(*) 0.9% 500 ML BAG 500 ML IV PRN (09:10)
[2017-12-17] MEDS: PALONOSETRON 0.25 MG/5 ML VIAL IVP PRN (09:10)
[2017-12-17] MEDS: DEXAMETHASONE SOD PHOS 10MG/ML IVP PRN (09:10)
[2017-12-17] MEDS: DEXTROSE 5%(*) 100 ML BAG 100 ML IVPB PRN (09:11)
--- NOTE | 2017-12-17 09:17 | RADIOLOGY IMAGING REPORT ---
FACILITY: [facility] - [place] PATIENT NAME: Tyrone Justin : 1940 MR: [id number] V: [id number] EXAM DATE: ORDERING PHYSICIAN: NATHANAEL BEARDEN TECHNOLOGIST: Location: [facility] Patient: Tyrone Justin : 1940 Visit/Account:[id number] Date of Sevice: 12/16/2017 Exam type: VENOUS DOPP UPPER RIGHT EXTREM History: Reevaluate clot in the right IJ and subclavian veins Comparison: December 09, 2017. Findings: Noncompressible thrombus again identified in the right internal jugular vein. In the proximal right internal jugular vein the thrombus is partially compressible and a small amount thrombus extends into the right subclavian vein appearing similar to the prior study. The right axillary vein, cephalic v ein, basilic vein, brachial vein, radial vein and ulnar veins were all compressible and demonstrated phasic flow IMPRESSION: 1. Noncompressible thrombus again identified in the right internal jugular vein and partially compre ssible thrombus in the proximal right internal jugular vein with a small amount extending into the ri ght subclavian vein appears some are to the prior study of December 09, 2017 Report Dictated By: Nava Delarosa MD at 12/17/2017 8:50 AM Report E-Signed By: Nava Delarosa MD at 12/17/2017 9:13 AM WSN:[id number]
[2017-12-17] MEDS: FOSAPREPITANT DIM 150 MG/5 ML 150 MG in NS(*) 0.9% 250 ML BAG 245 ML IVPB PRN (09:57)
[2017-12-17 13:17] VITALS: BP 115/68
[2017-12-19 11:44] VITALS: BP 97/59
[~2017-12-24] VITALS: Ht 186.7 cm; Wt 87.5 kg
[~2017-12-24] MED LIST changes: +ALTEPLASE RECOMB 2 MG VIAL IVP PRN; +D5W IV ONE; +ENOXAPARIN 100 MG/ML SYR SC ONE; +ENOXAPARIN 100 MG/ML SYR SC SCH; +FLUOROURACIL 50 MG/ML SDV IV ONE; +FLUOROURACIL 50 MG/ML SDV IVP ONE; +FLUOROURACIL IV ONE; -IBUP-136 PO; +IBUP200C71 PO; +LEUCOVORIN CAL IV ONE; +LEUCOVORIN CALCIUM IV ONE; +LEUCOVORIN IV ONE; +NS 0.9% IV ONE; +NS(*) 0.9% 100 ML BAG 100 ML IVPB PRN; +OXALIPLATIN 100 MG/20 ML VIAL 180 MG in D5W(*) 250 ML BAG 250 ML IVPB ONE; +OXALIPLATIN IVPB ONE; +PEGFILGRASTIM 6 MG/0.6 ML SYR SUBQ ONE; +WATER FOR INJ,STERILE 20 ML IVP PRN; +[UNRECOGNIZED DRUG - OTHER] IV ONE; +[UNRECOGNIZED DRUG - OTHER] IV ONE; +[UNRECOGNIZED DRUG - OTHER] IVPB ONE
[2017-12-24 10:12] VITALS: BP 111/53
[2017-12-24] MEDS: CYANOCOBALAMIN 1000MCG/ML VIAL IM ONLY PRN (10:14)
[2017-12-24 10:33] LABS: PLATELET COUNT, AUTOMATED 114 K/uL (150-450)
== END ==
LOC: ONC 09-25 08:50 → SPU 10-24 13:29 → ONC 10-31 08:54 → SPU 11-06 10:00 → ONC 11-14 09:30 → SPU 11-26 09:55 → ONC 12-09 14:00 → SPU 12-10 08:00 → ONC 12-17 08:50 → SPU 12-19 11:23
PROVIDERS: ATTEND Internal Medicine Hematology
DX: Z51.11 Encounter for antineoplastic chemotherapy (principal); C20 Malignant neoplasm of rectum; Z85.46 Personal history of malignant neoplasm of prostate; E53.8 Deficiency of other specified B group vitamins; F41.9 Anxiety disorder, unspecified; Z92.3 Personal history of irradiation; R11.0 Nausea; R05 Cough
CPT/HCPCS: 36415; 82378; 85025; 85027; 85610; 85730; 86255; 86340; 93970; 93971; 96361; 96365; 96367; 96368; 96372; 96375; 96411; 96413; 96415; 96416; G0463; J0640; J1100; J1453; J1642; J1650; J2469; J2505; J3420; J7040; J7050; J7060; J9190; J9263; 70030; 72197; 82040; 82247; 82310; 82374; 82435; 82565; 82947; 84075; 84132; 84153; 84155; 84295; 84450; 84460; 84520; 97802; 99202; 99212; A9577

== ENCOUNTER → 2017-12-26 | Outpatient (CLI) | payer MEDICARE ==
[~2017-12-26] MED LIST changes: -ALTEPLASE RECOMB 2 MG VIAL IVP PRN; -D5W IV ONE; -ENOXAPARIN 100 MG/ML SYR SC ONE; -ENOXAPARIN 100 MG/ML SYR SC SCH; -FLUOROURACIL 50 MG/ML SDV IV ONE; -FLUOROURACIL 50 MG/ML SDV IVP ONE; -FLUOROURACIL IV ONE; +GADOBENATE 529MG/1ML 15ML VIAL IVP ONE; -LEUCOVORIN CAL IV ONE; -LEUCOVORIN CALCIUM IV ONE; -LEUCOVORIN IV ONE; +NS 0.9% 25 ML BAG 50 ML ONE; -NS 0.9% IV ONE; -NS(*) 0.9% 100 ML BAG 100 ML IVPB PRN; -OXALIPLATIN 100 MG/20 ML VIAL 180 MG in D5W(*) 250 ML BAG 250 ML IVPB ONE; -OXALIPLATIN IVPB ONE; -PEGFILGRASTIM 6 MG/0.6 ML SYR SUBQ ONE; -WATER FOR INJ,STERILE 20 ML IVP PRN; -[UNRECOGNIZED DRUG - OTHER] IV ONE; -[UNRECOGNIZED DRUG - OTHER] IV ONE; -[UNRECOGNIZED DRUG - OTHER] IVPB ONE
--- NOTE | 2017-12-26 17:14 | RADIOLOGY IMAGING REPORT ---
[place] [facility] [place]: Tyrone Justin : 1940 MR: [id number] V: [id number] EXAM DATE: ORDERING PHYSICIAN: NATHANAEL BEARDEN TECHNOLOGIST: Location: [facility] Patient: Tyrone Justin : 1940 Visit/Account:[id number] Date of Sevice: 12/26/2017 PELVIS W W/O CONTRAST Provided history: Rectal cancer. Assess treatment response. Additional pertinent history: none TECHNIQUE: Multiplanar multisequence MRI of the pelvis was performed without and with intravenous c ontrast Contrast dose: 15 mL of MultiHance. Additional focused sequences: none COMPARISON STUDIES: Pelvic MRI 09/27/17 FINDINGS: Genitourinary: TURP defect noted in the prostate. No definable prostatic mass. Bladder negative. Bowel/peritoneum/mesenteries: Best appreciated on the sagittal series, there is circumferential wall thickening beginning approximate 5 cm above the verge. The wall thickening is improved from prior. To day, maximal thickening is up to 6 mm, previously 10-11 mm. Degree of enhancement has somewhat decreased. Infiltration of perirectal fat is similar but is less i ntense on the post gadolinium enhanced series. No new nodular enhancement. No low rectal disease appr eciated. No perirectal or other regional adenopathy. Sigmoid negative. Vessels: negative Musculoskeletal / body wall: negative Lymph nodes: negative IMPRESSION: The MR does indicate a treatment response with decreasing wall thickness and intensity of enhancement involving the upper rectal lesion. No new nodular soft tissue and no adenopathy. Report Dictated By: Sai Phelps MD at 12/26/2017 4:59 PM Report E-Signed By: Sai Phelps MD at 12/26/2017 5:10 PM WSN:[id number]
== END ==
LOC: MRI 12:33
PROVIDERS: ATTEND Internal Medicine Hematology
DX: C18.9 Malignant neoplasm of colon, unspecified (principal)
CPT/HCPCS: 72197; A9577

== ENCOUNTER 2018-03-24 09:30 | Outpatient (RCR) | payer MEDICARE ==
[2017-12-26] MEDS: HEPARIN FLSH (PORT) 500 UN/5ML IVP PRN (13:48)
[2017-12-27 16:30] VITALS: BP 106/61
--- NOTE | 2017-12-27 19:31 | ONCOLOGY FOLLOW UP NOTE ---
EVENT DATE: December 27, 2017 DIAGNOSES 1. Rectal adenocarcinoma. 2. History of prostate cancer. 3. Anxiety. 4. History of shingles. CHIEF COMPLAINT Patient is here today for cycle number five of FOLFOX chemotherapy for his rectal adenocarcinoma as neoadjuvant treatment. ONCOLOGY HISTORY Patient is a 77-year-old male who has been diagnosed on August 01, 2015 with prostate cancer, Anthony score of 7, moderately to poorly differentiated with 40 % involvement, stage T2c N0 M0. Initial PSA was 4.9 ng/mL, status post radiation therapy. Patient recently presented with rectal bleeding so the patient had a colonoscopy by Dr. Foy on September 18, 2017, and the patient was found to have a rectal mass, and the biopsy of that mass came back positive for poorly differentiated colonic adenocarcinoma. 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 Common bile duct dilatation was 1 cm with diffuse rectal wall thickening and mild infiltrative changes in the perirectal fat. CEA done on September 23, 2017 was high at 7.8. His chem panel was totally normal. CBC was also normal. CEA is high at 7.8. Pelvic MRI done on September 26, 2017 showed a newly diagnosed rectal cancer with irregular thickening of the mid rectum 2.5 cm above the anal verge, extending for a distance of 4.4 cm with possible transmural invasion of the perirectal fat. There is no evidence of adenopathy. There was indeterminate enhancing bone lesion in the right inferior sacrum measuring 2.7 cm. Metastasis cannot be excluded. Patient started neoadjuvant chemotherapy with FOLFOX chemotherapy on October 21, 2017. HISTORY OF PRESENT ILLNESS Patient is here today for cycle number five of FOLFOX chemotherapy as neoadjuvant treatment for his rectal adenocarcinoma. He is doing fine currently. He is tolerating chemotherapy better. He recovered from effects of chemotherapy actually faster now. He has some constipation. He has some tingling and numbness in the hands and feet on exposure to cold from his chemotherapy, but other than that he is really doing very well. PAST MEDICAL HISTORY 1. Prostate cancer. 2. History of skin cancer. 3. History of shingles. PAST SURGICAL HISTORY 1. TURP times two. 2. Right inguinal hernia repair. 3. Amputated left toe. 4. Surgery for right ankle fracture. FAMILY HISTORY His father, maternal grandfather, paternal grandfather and brother all had prostate cancer. SOCIAL HISTORY Patient is single with no children. 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 He denies any abuse of tobacco or illicit drugs, but he drinks about five beers per week. CURRENT MEDICATIONS Acyclovir 800 mg daily as needed p.r.n. ALLERGIES 1. PENICILLIN which caused hives. 2. SOY COKER and SOY DUST which cause asthma-like attack. REVIEW OF SYSTEMS CONSTITUTIONAL: No appetite or weight change. No fever, chills. He has occasional night seats. No recent infection. HEENT: Ears: No tinnitus or hearing problem. Nose: No nasal discharge or epistaxis. Throat: No sore throat or mouth ulcers. Eyes: No diplopia or visual changes. RESPIRATORY: No shortness of breath. No expectoration or hemoptysis. He has some dry cough. CARDIOVASCULAR: No chest pain, orthopnea, or paroxysmal nocturnal dyspnea (PND) . No edema. No palpitations. GASTROINTESTINAL: The patient has constipation. GENITOURINARY: No hematuria or dysuria. MUSCULOSKELETAL: No pain in the muscles, joints or bones. NEUROLOGICAL: He has tingling and numbness in the hands on exposure to cold. No headaches or convulsions. HEMATOLOGIC/LYMPHATIC: No bleeding. He bruises easily. He is weak, tired and fatigued. No enlarged lymph nodes. SKIN: No skin rash or lumps. PSYCHIATRIC: No anxiety or depression. PHYSICAL EXAMINATION GENERAL: Looks stable. Well-developed, well-nourished, and in no acute distress. VITAL SIGNS: Blood pressure 106/61, pulse 66 per minute, respirations 16 per minute, temperature 98, pulse ox 91% on room air. HEENT: Head: Atraumatic. No sinus tenderness to palpation. Eyes: No icterus or conjunctivitis. Mouth and throat: No oral thrush or mucositis. NECK: Supple. No cervical or supraclavicular lymphadenopathy. LUNGS: Clear to auscultation and percussion bilaterally. HEART: Regular rate and rhythm. No gallops, murmurs, clicks or rubs. ABDOMEN: Soft and lax. No tenderness. No hepatosplenomegaly. No masses. EXTREMITIES: No cyanosis, clubbing or edema. LYMPHATICS: No peripheral lymphadenopathy. NEUROLOGICAL: Conscious, alert and oriented times three. No focal motor or sensory deficits. PSYCHIATRIC: Mood and affect appear normal. SKIN: No skin rash, bruise or purpuric eruption. DIAGNOSTIC DATA CBC showed white count 3.5, hemoglobin 14.8, hematocrit 41.3, platelet 114,000. Chem panel totally normal except carbon dioxide 21, blood sugar 112, AST 53 and CEA is 4.5. ASSESSMENT 1. Rectal adenocarcinoma with a mass infiltrating the wall of the perirectal fat, probably T3 lesion proved by pelvic MRI done September 26, 2017. Colonoscopy done September 18, 2017 did reveal rectal mass, and biopsy was positive for moderately differentiated colonic adenocarcinoma. 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 Patient started neoadjuvant chemotherapy with FOLFOX regimen for four cycles October 21, 2017. He is tolerating treatment very well so far. He developed thrombocytopenia, for which modification of the dose was done with better tolerance. He is currently tolerating treatment much better. His current platelet count is 114,000 which is stable. His bone marrow reserve is poor because of his previous radiation therapy of the prostate. The dose of chemotherapy has decreased by 20% and the bolus of 5-FU was discontinued, and the patient is tolerated treatment much better now. His CEA dropped from 7.8 and currently 4.5. MRI of the pelvis done on December 26, 2017 showed treatment response with decrease in wall thickness from 10-11 mm to 6 mm, and the intensity of enhancement involving the upper rectal lesion is also getting better. Given this information I am planning to refer the patient back to the radiation oncologist to review the MRI to see at what time he would like to add radiation therapy to the treatment of his rectal cancer. Otherwise I will continue chemotherapy with FOLFOX if no plan for radiation therapy now. 2. Chemotherapy-induced thrombocytopenia. Current platelet count 114,000, which is stable after dose modification of chemotherapy. 3. Vitamin B12 deficiency. Anti-intrinsic factor antibodies and anti-parietal cell antibodies came back negative. His initial vitamin B12 level was 131. He is currently on vitamin B shots weekly. 4. Anxiety, on Valium p.r.n. 5. History of shingles, currently on acyclovir 800 mg during chemotherapy. 6. Possible metastasis in the sacrum. We will continue to monitor. PLAN 1. Ask radiation oncologist to review the MRI after four cycles of chemotherapy to see if he is planning to add radiation therapy or not to his treatment. Otherwise we will continue FOLFOX for the fifth cycle. 2. Patient to return in two weeks with CBC, chem panel, CEA. 3. Continue B12 supplement 1000 mcg intramuscularly weekly. 4. CBC, chem panel to be checked weekly with chemotherapy. 5. Neulasta 6 mg subcutaneously to be given day three with chemotherapy. 6. Patient to contact us for any new concerns or complaints. MTDD
[2017-12-31 08:51] VITALS: BP 115/74
[2017-12-31 09:04] LABS: PLATELET COUNT, AUTOMATED 93 K/uL (150-450)
[2017-12-31] MEDS: CYANOCOBALAMIN 1000MCG/ML VIAL IM ONLY PRN (09:04)
[2018-01-07 09:22] VITALS: BP 122/67
[2018-01-13 13:38] VITALS: BP 121/64
[2018-01-13 13:42] LABS: PLATELET COUNT, AUTOMATED 100 K/uL (150-450)
[2018-01-14 09:27] VITALS: BP 117/75
[2018-01-14] MEDS: DEXAMETHASONE SOD PHOS 10MG/ML IVP PRN (09:44)
[2018-01-14] MEDS: PALONOSETRON 0.25 MG/5 ML VIAL IVP PRN (09:45)
[2018-01-14] MEDS: NS(*) 0.9% 500 ML BAG 500 ML IV PRN (09:50)
[2018-01-14] MEDS: DEXTROSE 5%(*) 100 ML BAG 100 ML IVPB PRN (09:51)
[2018-01-14] MEDS: FOSAPREPITANT DIM 150 MG/5 ML 150 MG in NS(*) 0.9% 250 ML BAG 245 ML IVPB PRN (10:05)
--- NOTE | 2018-01-14 14:11 | Oncology Progress Note ---
History of Present Illness Evaluation Evaluation Date: Jan 14, 2018 Evaluation Time: 12:50 Accompanied by Accompanied by: Self Chief Complaint Chief Complaint C5/D6 of FOLFOX. for Rectal adenocarcinoma Oncology History Oncology History Initial PSA was 4.9 ng/mL, status post radiation therapy. Patient recently presented with rectal bleeding so the patient had a colonoscopy by Dr. Salcedo on September 18, 2017, and the patient was found to have a rectal mass, and the biopsy of that mass came back positive for poorly differentiated colonic adenocarcinoma. 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 Common bile duct dilatation was 1 cm with diffuse rectal wall thickening and mild infiltrative changes in the perirectal fat. CEA done on September 23, 2017 was high at 7.8. His chem panel was totally normal. CBC was also normal. CEA is high at 7.8. Pelvic MRI done on September 26, 2017 showed a newly diagnosed rectal cancer with irregular thickening of the mid rectum 2.5 cm above the anal verge, extending for a distance of 4.4 cm with possible transmural invasion of the perirectal fat. There is no evidence of adenopathy. There was indeterminate enhancing bone lesion in the right inferior sacrum measuring 2.7 cm. Metastasis cannot be excluded. Patient started neoadjuvant chemotherapy with FOLFOX chemotherapy on October 21, 2017. Treatment Treatment Dx: 08/2017, currently on Folfox 01/14/2018 C5/D6 of FOLFOX. for Rectal adenocarcinoma Hx of prostate cancer, [place] score of 7, moderately to poorly differentiated with 40% involvement, stage T2c N0 M0 diagnosed on August 01, 2015, treated with 44 fractions of XRT from February -April 2016 October 21, 2017 Patient started neoadjuvant chemotherapy with FOLFOX regimen for four cycles October 21, 2017. He is tolerating treatment very well so far. He developed thrombocytopenia, for which modification of the dose was done with better tolerance. He also developed nausea that responded better with adding Emend to his premedications. 4more cycles of Folfox, with dose adjustment were added. HPI HPI Tyrone Kwan is a 77-year-old male who has Rectal adenocarcinoma Dx: 2017, currently on C5/D6 of FOLFOX. and Hx of prostate cancer, [place] score of 7, moderately to poorly differentiated with 40% involvement, stage T2c N0 M0 diagnosed on August 01, 2015, treated with 44 fractions of XRT from February - April 2016 per patient report. 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 Patient presents to the cancer center today for his treatment of Cycle 5 day one of FOLFOX. treatment was held for 2 cycles due to low counts. He is status post radiation for prostate cancer from February through April 2016 . He informs me that he received approximately 44 fractions back in 2016 in a 4 day week interval. Because he had to be readjusted as he could not tolerate it on the fifth day. He reports being in his usual state of health, reports no major toxicities, except feeling tired, fatigue 3 days after chemotherapy, then he begins to recover. Patient had several additional insightful and appropriate questions regarding side effects and I believe answered all of his questions to his satisfaction. He informed me that he occasionally forgets to take his anticoagulant. Rationale provided as to why he has to continue to take Eliquis that he's currently on 5 mg by mouth twice a day. He had a clot on the right jugular vein area of the neck on 12/09/17. We talked about nutrition status management ;constipation and mucositis patient agrees to start taking daily prophylaxis versus when necessary, he also agrees to continue to start taking stool softener every morning, for constipation as opposed to take it when he is constipated. Also I recommended the patient to use aloe vera juice, and Good oral care. We would also provide the patient with a copy of the tar man handout so that he may refer to to these education handout thorough the treatment process to help with symptom management. He denies chest pain, No SOB, N/V/, no changes in bowel or bladder bladder, no active bleeding. Significant PMH of Prostate cancer.History of skin cancer. History of shingles. Living Conditions Lives alone, has family and friends for support. Diagnostic Studies Result Diagram: 01/13/18 1333 01/13/18 1333 PMH Patient History: FH: prostate cancer FATHER, , Age:85 Social/Occupational History Social History: Social History This is a 77 Yr old White male, he is S Single and has [] Children Hx Smoking: No Smoking Status: Former Smoker Allergies & Medications Allergies: Coded Allergies: penicillin G (Verified Allergy, Intermediate, HIVES, 08/27/17) soybean (Verified Allergy, Intermediate, HIVES, 08/27/17) Uncoded Allergies: SOY DUST (Allergy, Severe, AIRWAY OBSTRUCTION, 05/27/07) Home Meds Active Scripts Acyclovir (ACYCLOVIR) 800 Mg Tablet, 400 MG PO QDAY Y for prn for 60 Days, #60 TAB Prov:RACHIDANTELMOBIRD GRIFFIN YUNG, ONC 01/14/18 Apixaban (ELIQUIS) 5 Mg Tablet, 5 MG PO BID for 30 Days, BOT Prov:VALERIEBIRDYuli BARRAGAN, ONC 01/14/18 Reported Medications Acetaminophen (TYLENOL) 325 Mg Tablet, 325 MG PO PRN Y for PAIN, TAB 10/02/17 Diazepam (VALIUM) 5 Mg Tablet, 2.5 MG PO QHS, #5 TAB 09/26/17 Discontinued Scripts Diazepam (DIAZEPAM) 5 Mg Tablet, 1 TAB PO BID Y for ANXIETY, #5 TAB 0 Refills Prov:MARCELO SALCEDO MD 09/23/17 Review of Systems Constitution: Positive for Appetite/Weight Change HEENT: No EARS: Tinnitus, No NOSE: Nasal Discharge, No THROAT: Sore Throat, No EYES: Dipolpia, No EARS: Hearing Problems, No NOSE: Epistaxis, THROAT: Mouth Ulcers, No EYES: Vision Change, No OTHER Respiratory: No Cough, No Expectoration, No Hemoptysis, No Shortness of Breath , No OTHER Cardiovascular: Chest Pain Gastrointestinal: Constipation Gentiourinary: No Hematuria, No Dysuria, No Nocturia, No Other Musculoskeletal: Muscle Pain, No Joint Pain, No Bone Pain, No Other Hematological: No Bleeding, No Weakness, No Enlarged Lyph Nodes, No Bruising, No Fatigue, No Other Skin: No Skin Rash, No Lumps, No Erythema, No Dry Skin, No Moist Skin, No Other Psychiatric: No Anxiety, No Depression, No Other Vital Signs Vital Signs Temperature: 97.8 Pulse: 59 BP Systolic: 117 BP Diastolic: 75 Respiratory Rate: 16 O2 SAT: 91 O2 Delivery: Height (feet) Height (inches) 73.50 Weight lb: 190 Weight oz: Weight Kg (Wenceslao): Pain: 0 ECO -rides his back to his medical appointments Physical Exam General: Looks Stable, Well Developed, Well Nourished, Other (In No acute distress) HEENT: HEAD:Atraumatic, No EYES: Conjuctivitis, No EYES: Icterus, No MOUTH: Mucocitis, No MOUTH: Oral Thrush, No SINUS: Tenderness to Palpation, No Other Neck: Supple, No Cervical Lymphadenopathy, No Subclavicular Lymphadopathy, No Thyromegaly, No Other Lungs: Clear to Auscultation, Percussion Bilaterally Heart: Regular Rate and Rhythm, No Gallops, No Murmurs, No Clicks, No Rubs, No Other Abdomen: Soft and Nontender, No Hepatosplenomegaly, No Masses, No Other Extremities: No Cyanosis, No Clubbing, No Edema, No Other Lymphatics: No Peripheral Lymphadenopathy, No Other Psychiatric: Mood appears normal, Affect appears normal Skin: No Skin Rashes, No Bruising, No Purpura, No Moist Desquamation, No Dry Desquamation, No Errythema, No Mild Errythema, No Moderate Errythema, No Severe Errythema, No Induration, No Other Breast: No No Masses, No No Nipple Discharge, No No Skin Changes, No Other Assessment and Plan Assessment and Plan Tyrone Kwan is a 77-year-old male who has Rectal adenocarcinoma Dx: 2017, currently on C5/D6 of FOLFOX. and Hx of prostate cancer, [place] score of 7, moderately to poorly differentiated with 40% involvement, stage T2c N0 M0 diagnosed on August 01, 2015, treated with 44 fractions of XRT from February - April 2016 per patient report. 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 Patient presents to the cancer center today for his treatment of Cycle 5 day one of FOLFOX. treatment was held for 2 cycles due to low counts. He is status post radiation for prostate cancer from February through April 2016 . He informs me that he received approximately 44 fractions back in 2016 in a 4 day week interval. DIAGNOSTIC DATA 01/13/18 CBC showed white count 2, platelets 100,000. ANC 1.6. Chem panel totally normal. CEA is 5.1 which is down from 6.4. 1. Rectal adenocarcinoma dx 08/2017 on Folfox, planned for 8 cycles. 01/14/18 C5 /D1 today. due to Thrombocytopenia The dose of chemotherapy was decreased by 20 % and and the bolus dose of 5-FU was discontinued. with a mass infiltrating the wall of the perirectal fat, probably T3 lesion proved by pelvic MRI done September 26, 2017. Colonoscopy done September 18, 2017 did reveal rectal mass, and biopsy was positive for moderately differentiated colonic adenocarcinoma. 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 Patient started neoadjuvant chemotherapy with FOLFOX regimen for four cycles October 21, 2017. He is tolerating treatment very well so far. He developed thrombocytopenia, for which modification of the dose was done with better tolerance. He also developed nausea that responded better with adding Emend to his premedications. 2. DVT Right Jugular supraclavicular. revealed by U/S measuring aprox. 2.9 cm. resolved, currently on Eliquis 5mg Po BID [id number]. . Chemotherapy-induced thrombocytopenia. Current platelet count 93,000, Will continue the same chemotherapy if platelets of >/=100 3. Vitamin B12 deficiency. Anti-intrinsic factor antibodies and anti-parietal cell antibodies came back negative. His initial vitamin B12 level was 131. Will continue vitamin B supplement. 4. Anxiety, on Valium p.r.n. 1/2 tablet Q PM. 5. History of shingles. Continue acyclovir 800 mg daily during chemotherapy. 6. Possible metastasis in the sacrum. This could be due to prostate cancer rather than rectal cancer. For this reason PSA is requested. Plan #1 at CBC CMP, magnesium to next lab Drawn #2 patient to complete 3 more cycles of FOLFOX total of of 8 cycles #3 patient to get an MRI imaging after treatment #4 patient to follow up with Dr. Salcedo after completion of chemotherapy and ideally MRI images #5 patient informed me that Dr. Terry, Dr. Barksdale, and Dr. Salcedo had a conference Call where a decision was made not to include radiation therapy whit his treatment plan. He had previously received 44 fractions of radiation between February and April 2016 for treatment of prostate Ca. #6 Continue B12 supplement 1000 mcg intramuscularly, monthly . Patient initially had B21 injections Q Dayx1 week, then Weekly, and recently started monthly injections on 12/31/2017. #7. Neulasta 6 mg subcutaneously day three of each cycle. #8. Patient to contact us for any new concerns or complaints.And to go to the Er if Any SOB, chest pain, active bleeding, dizziness, syncope. #[address] Terry when to titrate dose of Eliquis. #10. patient to have a copy of the nutrition education handout. -Education, patient instructed to go to ER immediately and or call Clinic if any Shortness of Breath, Temp >/=100.4, fevers, chills, cardiac type chest pain , bleeding, excessive bruising, headaches, blurry vision, dizziness, abdominal pain, difficulty swallowing, and pain unrelieved by medication. TIME SPENT: 45 minutes 40 > minutes includes but not limited to discussion, counselling and co-ordination~ of care. Discussion with other health care providers, record review, review of lab work, diagnostic tests. Plan discussed extensively with patient. All the questions answered today. Thank you for the opportunity to be involved in the care of Tyrone Justin. Billing Level: Return visit 5 CC Copies to: NATHANAEL BEARDEN MD, SARA FNP-C, ONC Jan 14, 2018 14:11
[2018-01-16 13:59] VITALS: BP 101/54
[2018-01-21 10:23] VITALS: BP 116/58
[2018-01-21 10:25] LABS: PLATELET COUNT, AUTOMATED 65 K/uL (150-450)
[2018-01-24 09:01] VITALS: BP 113/65
--- NOTE | 2018-01-24 14:01 | [facility] ONCOLOGY NOTE ---
EVENT DATE: January 24, 2018 DIAGNOSES 1. Rectal adenocarcinoma. 2. History of prostate cancer. 3. Anxiety. 4. History of shingles. CHIEF COMPLAINT Patient is here today for followup of his rectal adenocarcinoma on neoadjuvant chemotherapy with FOLFOX. This will be cycle #6. ONCOLOGY HISTORY Patient is a 77-year-old male who has been diagnosed on August 01, 2015 with prostate cancer, [place] score of 7, moderately to poorly differentiated with 40 % involvement, stage T2c N0 M0. Initial PSA was 4.9 ng/mL, status post radiation therapy. Patient recently presented with rectal bleeding so the patient had a colonoscopy by Dr. Foy on September 18, 2017, and the patient was found to have a rectal mass, and the biopsy of that mass came back positive for poorly differentiated colonic adenocarcinoma. 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 Common bile duct dilatation was 1 cm with diffuse rectal wall thickening and mild infiltrative changes in the perirectal fat. CEA done on September 23, 2017 was high at 7.8. His chem panel was totally normal. CBC was also normal. CEA is high at 7.8. Pelvic MRI done on September 26, 2017 showed a newly diagnosed rectal cancer with irregular thickening of the mid rectum 2.5 cm above the anal verge, extending for a distance of 4.4 cm with possible transmural invasion of the perirectal fat. There is no evidence of adenopathy. There was indeterminate enhancing bone lesion in the right inferior sacrum measuring 2.7 cm. Metastasis cannot be excluded. Patient started neoadjuvant chemotherapy with FOLFOX chemotherapy on October 21, 2017. HISTORY OF PRESENT ILLNESS Patient is here today for followup of his rectal adenocarcinoma and neoadjuvant chemotherapy with FOLFOX. This will be cycle #6. The patient is doing fine currently. He has occasional nausea and constipation related to his chemotherapy. 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 Other than that, he is very stable currently. PAST MEDICAL HISTORY 1. Prostate cancer. 2. History of skin cancer. 3. History of shingles. PAST SURGICAL HISTORY 1. TURP times two. 2. Right inguinal hernia repair. 3. Amputated left toe. 4. Surgery for right ankle fracture. FAMILY HISTORY His father, maternal grandfather, paternal grandfather and brother all had prostate cancer. SOCIAL HISTORY Patient is single with no children. 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 He denies any abuse of tobacco or illicit drugs, but he drinks about five beers per week. CURRENT MEDICATIONS Acyclovir 800 mg daily as needed p.r.n. ALLERGIES 1. PENICILLIN which caused hives. 2. SOY COKER and SOY DUST which cause asthma-like attack. REVIEW OF SYSTEMS CONSTITUTIONAL: No appetite or weight change. No fever, chills. He has occasional night seats. No recent infection. HEENT: Ears: No tinnitus or hearing problem. Nose: No nasal discharge or epistaxis. Throat: No sore throat or mouth ulcers. Eyes: No diplopia or visual changes. RESPIRATORY: No shortness of breath. No expectoration or hemoptysis. He has some dry cough. CARDIOVASCULAR: No chest pain, orthopnea, or paroxysmal nocturnal dyspnea (PND) . No edema. No palpitations. GASTROINTESTINAL: He has occasional nausea and constipation related to chemotherapy. GENITOURINARY: No hematuria or dysuria. MUSCULOSKELETAL: No pain in the muscles, joints or bones. 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 HEMATOLOGIC/LYMPHATIC: No bleeding. He bruises easily. He is weak, tired and fatigued. No enlarged lymph nodes. SKIN: No skin rash or lumps. PSYCHIATRIC: No anxiety or depression. PHYSICAL EXAMINATION GENERAL: Looks stable. Well-developed, well-nourished, and in no acute distress. VITAL SIGNS: Blood pressure 113/65, pulse 59 per minute, respirations 16 per minute, temperature 97, pulse ox 94% on room air. HEENT: Head: Atraumatic. No sinus tenderness to palpation. Eyes: No icterus or conjunctivitis. Mouth and throat: No oral thrush or mucositis. NECK: Supple. No cervical or supraclavicular lymphadenopathy. LUNGS: Clear to auscultation and percussion bilaterally. HEART: Regular rate and rhythm. No gallops, murmurs, clicks or rubs. ABDOMEN: Soft and lax. No tenderness. No hepatosplenomegaly. No masses. EXTREMITIES: No cyanosis, clubbing or edema. LYMPHATICS: No peripheral lymphadenopathy. NEUROLOGICAL: Conscious, alert and oriented times three. No focal motor or sensory deficits. PSYCHIATRIC: Mood and affect appear normal. SKIN: No skin rash, bruise or purpuric eruption. DIAGNOSTIC DATA CBC showed white count 8.1, hemoglobin 14.6, hematocrit 41.3, platelet 65,000. CEA is 5.1, down from 5.5 Chem panel totally normal except carbon dioxide 19 and AST 37. ASSESSMENT 1. Rectal adenocarcinoma with a mass infiltrating the wall of the perirectal fat, probably T3 lesion proved by pelvic MRI done September 26, 2017. Colonoscopy done September 18, 2017 did reveal rectal mass, and biopsy was positive for moderately differentiated colonic adenocarcinoma. 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 Patient started neoadjuvant chemotherapy with FOLFOX regimen on October 21, 2017. He tolerated treatment very well. He developed thrombocytopenia, for which modification of the dose was done with better tolerance. His current platelet count is 65,000 and the patient is due for his next cycle of chemotherapy on January 28, 2018 and a base count at that time will be lower than 100,000 platelets. I am planning to hold his treatment for a week. If this is the case, I will delay his treatment every three weeks rather than every two weeks for the last two cycles of his chemotherapy as the patient is planned to have eight cycles prior to going for surgery. The patient could have poor bone marrow reserve because of the previous radiation therapy of his prostate cancer. His dose of chemotherapy is decreased by 20% and the bolus of 5-FU was also discontinued and the patient continues to have low platelets. His CEA dropped from 7.8 and currently 5.1. MRI of the pelvis on December 26, 2017 showed treatment response with decrease in the wall thickness from 10-11 mm to 6 mm and the intensity of enhancement involving the upper rectal lesion is also getting better. I will see him in two weeks prior to the next cycle of chemotherapy. 2. Chemotherapy-induced thrombocytopenia. Current platelet count 65,000. We will continue to monitor. 3. Vitamin B12 deficiency. Continue B12 supplement. His initial vitamin B level was 131 and anti-intrinsic factor antibodies and anti-parietal cell antibodies came back negative. 4. Anxiety, on Valium p.r.n. 5. History of shingles, currently on acyclovir 800 mg during chemotherapy. PLAN 1. Chemotherapy with FOLFOX cycle #6 if platelet count above 100,000. 2. CBC and chem panel to be checked weekly. 3. Neulasta 6 mg subcutaneously after each cycle of chemotherapy. 4. Continue vitamin B12 supplement intramuscularly weekly. 5. Patient to return in two weeks for CBC, chem panel and CEA. 6. Patient to contact us for any new concerns or complaints. MTDD
[2018-01-27 10:40] VITALS: BP 120/67
[2018-01-27 10:40] LABS: PLATELET COUNT, AUTOMATED 98 K/uL (150-450)
[2018-01-28] MEDS: NS(*) 0.9% 500 ML BAG 500 ML IV PRN (09:13)
[2018-01-28] MEDS: DEXTROSE 5%(*) 100 ML BAG 100 ML IVPB PRN (09:13)
[2018-01-28] MEDS: DEXAMETHASONE SOD PHOS 10MG/ML IVP PRN (09:14)
[2018-01-28] MEDS: PALONOSETRON 0.25 MG/5 ML VIAL IVP PRN (09:14)
[2018-01-28] MEDS: CYANOCOBALAMIN 1000MCG/ML VIAL IM ONLY PRN (09:15)
[2018-01-28 09:31] VITALS: BP 112/71
[2018-01-28] MEDS: FOSAPREPITANT DIM 150 MG/5 ML 150 MG in NS(*) 0.9% 250 ML BAG 245 ML IVPB PRN (09:45)
--- NOTE | 2018-01-28 11:39 | Medical Nutrition Therapy ---
Nutritional Education Nutrition Education Topic: Other (fatigue and dehydration ) Learning Readiness: Interested Teaching Methods: Discussion, Handout Response to Teaching: Verbalize understanding Teaching Recipient: Patient Nutrition Counseling: Reviewed information on managing dehydration and fatigue Nutrition Monitoring & Eval Nutrition Goals: Eat 90-100% Meal, Drink > 2 liters/day Nutrition Follow-Up: Good Intake Nutrition Monitoring: Tyrone states he has 4-5 days post treatment that he feels bad and has a hard time drinking fluids. Reviewed fluid options other than just water, he was agreeable to try. I will monitor nutrition impact symptoms as needed and provide additional education and recommendations. RD Patient Assessment Time: [address] Assessment Type: RD Re-Assessment Patient Nutrition Acuity: 3-Mild BETSY PICHARDO RDN, SHAYLA Jan 28, 2018 11:39
[2018-01-28 13:15] VITALS: BP 118/70
[2018-01-30 11:48] VITALS: BP 100/56
[2018-01-30] MEDS: HEPARIN FLSH (PORT) 500 UN/5ML IVP PRN (12:54)
[2018-01-30 12:57] VITALS: BP 110/74
[2018-02-04 14:27] LABS: PLATELET COUNT, AUTOMATED 90 K/uL (150-450)
[2018-02-04 14:42] VITALS: BP 119/74
[2018-02-14 13:52] LABS: PLATELET COUNT, AUTOMATED 118 K/uL (150-450)
[2018-02-14 13:58] VITALS: BP 117/64
--- NOTE | 2018-02-14 17:08 | ONCOLOGY FOLLOW UP NOTE ---
EVENT DATE: February 14, 2018 DIAGNOSES 1. Rectal adenocarcinoma. 2. History of prostate cancer. 3. Anxiety. 4. History of shingles. CHIEF COMPLAINT Patient is here today for followup of his rectal adenocarcinoma on neoadjuvant chemotherapy with FOLFOX. This will be cycle #7. ONCOLOGY HISTORY Patient is a 77-year-old male who has been diagnosed on August 01, 2015 with prostate cancer, [place] score of 7, moderately to poorly differentiated with 40% involvement, stage T2c N0 M0. Initial PSA was 4.9 ng/mL, status post radiation therapy. Patient recently presented with rectal bleeding so the patient had a colonoscopy by Dr. Foy on September 18, 2017, and the patient was found to have a rectal mass, and the biopsy of that mass came back positive for poorly differentiated colonic adenocarcinoma. 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 Common bile duct dilatation was 1 cm with diffuse rectal wall thickening and mild infiltrative changes in the perirectal fat. CEA done on September 23, 2017 was high at 7.8. His chem panel was totally normal. CBC was also normal. CEA is high at 7.8. Pelvic MRI done on September 26, 2017 showed a newly diagnosed rectal cancer with irregular thickening of the mid rectum 2.5 cm above the anal verge, extending for a distance of 4.4 cm with possible transmural invasion of the perirectal fat. There is no evidence of adenopathy. There was indeterminate enhancing bone lesion in the right inferior sacrum measuring 2.7 cm. Metastasis cannot be excluded. Patient started neoadjuvant chemotherapy with FOLFOX chemotherapy on October 21, 2017. HISTORY OF PRESENT ILLNESS Patient is here today for followup of his rectal adenocarcinoma on neoadjuvant chemotherapy with FOLFOX. This will be cycle #7. The patient is doing fine currently. He has some night sweats. He has constipation after chemotherapy. He has occasional rectal bleeding. He bruises easily. PAST MEDICAL HISTORY 1. Prostate cancer. 2. History of skin cancer. 3. History of shingles. PAST SURGICAL HISTORY 1. TURP times two. 2. Right inguinal hernia repair. 3. Amputated left toe. 4. Surgery for right ankle fracture. FAMILY HISTORY His father, maternal grandfather, paternal grandfather and brother all had prostate cancer. SOCIAL HISTORY Patient is single with no children. 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 He denies any abuse of tobacco or illicit drugs, but he drinks about five beers per week. CURRENT MEDICATIONS Acyclovir 800 mg daily as needed p.r.n. ALLERGIES 1. PENICILLIN which caused hives. 2. SOY COKER and SOY DUST which cause asthma-like attack. REVIEW OF SYSTEMS CONSTITUTIONAL: No appetite or weight change. No fever, chills. The patient has some sweating. No recent infection. HEENT: Ears: No tinnitus or hearing problem. Nose: No nasal discharge or epistaxis. Throat: No sore throat or mouth ulcers. Eyes: No diplopia or visual changes. RESPIRATORY: No shortness of breath. No expectoration or hemoptysis. He has some dry cough. CARDIOVASCULAR: No chest pain, orthopnea, or paroxysmal nocturnal dyspnea (PND). No edema. No palpitations. GASTROINTESTINAL: He has constipation after chemotherapy. He has occasional rectal bleeding. GENITOURINARY: No hematuria or dysuria. MUSCULOSKELETAL: No pain in the muscles, joints or bones. 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 HEMATOLOGIC/LYMPHATIC: He bruises easily. SKIN: No skin rash or lumps. PSYCHIATRIC: No anxiety or depression. PHYSICAL EXAMINATION GENERAL: Looks stable. Well-developed, well-nourished, and in no acute distress. VITAL SIGNS: Blood pressure 117/64, pulse 76 per minute, respirations 16 per minute, temperature 98.5, pulse ox 91% on room air. HEENT: Head: Atraumatic. No sinus tenderness to palpation. Eyes: No icterus or conjunctivitis. Mouth and throat: No oral thrush or mucositis. NECK: Supple. No cervical or supraclavicular lymphadenopathy. LUNGS: Clear to auscultation and percussion bilaterally. HEART: Regular rate and rhythm. No gallops, murmurs, clicks or rubs. ABDOMEN: Soft and lax. No tenderness. No hepatosplenomegaly. No masses. EXTREMITIES: No cyanosis, clubbing or edema. LYMPHATICS: No peripheral lymphadenopathy. NEUROLOGICAL: Conscious, alert and oriented times three. No focal motor or sensory deficits. PSYCHIATRIC: Mood and affect appear normal. SKIN: No skin rash, bruise or purpuric eruption. DIAGNOSTIC DATA CBC showed white count 6.9, hemoglobin 14.5, hematocrit 41.4, platelets 118,000. Chem panel totally normal except blood sugar 113. CEA is above normal at 4.8, which is down from 5.1 last visit. ASSESSMENT 1. Rectal adenocarcinoma with a mass infiltrating the wall of the perirectal fat, probably T3 lesion proved by pelvic MRI done September 26, 2017. Colonoscopy done September 18, 2017 did reveal rectal mass, and biopsy was positive for moderately differentiated colonic adenocarcinoma. 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 Patient started neoadjuvant chemotherapy with FOLFOX regimen on October 21, 2017. He developed thrombocytopenia for which modification of the dose was done with better tolerance. His current platelet count is 118,000 and the patient is due for his next cycle of chemotherapy on February 18, 2018. Patient completed six courses so far and I am planning to proceed with his seventh course if his blood count allows as scheduled. His CEA dropped from 7.8 and currently 4.8, continues to drop. MRI of the pelvis December 26, 2017 showed treatment response with decrease in the wall thickness from 10-11 mm to 6 mm, and the intensity of enhancement involving the upper rectal lesion is also getting better. I will see him in two weeks prior to the next and last cycle of neoadjuvant chemotherapy with CBC, chem panel and CEA. 2. Chemotherapy-induced thrombocytopenia. Current platelet count 118,000. We will continue to monitor. 3. Vitamin B12 deficiency. Continue B12 supplement. His initial vitamin B level was 131 and anti-intrinsic factor antibodies and anti-parietal cell antibodies came back negative. 4. Anxiety, on Valium p.r.n. 5. History of shingles, currently on acyclovir 800 mg as a prophylaxis during his chemotherapy. PLAN 1. Chemotherapy with FOLFOX cycle #7, if platelet count is above 100,000. 2. CBC and chem panel to be checked weekly. 3. Neulasta 6 mg subcutaneously after each cycle of chemotherapy. 4. Continue vitamin B12 supplement intramuscularly. 5. Patient to return in two weeks for CBC, chem panel and CEA. 6. Patient to contact us for any new concern or complaints. MTDD
[2018-02-17 14:31] VITALS: BP 123/66
[2018-02-17 14:50] LABS: PLATELET COUNT, AUTOMATED 119 K/uL (150-450)
[2018-02-18 09:18] VITALS: BP 124/68
[2018-02-18] MEDS: PALONOSETRON 0.25 MG/5 ML VIAL IVP PRN (09:47)
[2018-02-18] MEDS: DEXAMETHASONE SOD PHOS 10MG/ML IVP PRN (09:47)
[2018-02-18] MEDS: FOSAPREPITANT DIM 150 MG/5 ML 150 MG in NS(*) 0.9% 250 ML BAG 245 ML IVPB PRN (10:01)
[2018-02-18] MEDS: NS(*) 0.9% 500 ML BAG 500 ML IV PRN (10:02)
[2018-02-18] MEDS: DEXTROSE 5%(*) 100 ML BAG 100 ML IVPB PRN (10:33)
[2018-02-18 12:42] VITALS: BP 125/74
[2018-02-20] MEDS: NS(*) 0.9% 1000 ML BAG 1,000 ML IV PRN (11:22)
[2018-02-20 11:52] VITALS: BP 103/57
[2018-02-20] MEDS: HEPARIN FLSH (PORT) 500 UN/5ML IVP PRN (12:49)
[2018-02-25 11:09] VITALS: BP 101/71
[2018-02-25 11:28] LABS: PLATELET COUNT, AUTOMATED 74 K/uL (150-450)
[2018-03-03] MEDS: CYANOCOBALAMIN 1000MCG/ML VIAL IM ONLY PRN (14:03)
[2018-03-03 14:05] VITALS: BP 112/63
[2018-03-03 14:20] LABS: PLATELET COUNT, AUTOMATED 94 K/uL (150-450)
[2018-03-07 14:01] VITALS: BP 131/71
--- NOTE | 2018-03-07 18:09 | ONCOLOGY FOLLOW UP NOTE ---
EVENT DATE: March 07, 2018 DIAGNOSES 1. Rectal adenocarcinoma. 2. History of prostate cancer. 3. Anxiety. 4. History of shingles. CHIEF COMPLAINT Patient is here today for his cycle number eight of FOLFOX chemotherapy for his rectal adenocarcinoma. ONCOLOGY HISTORY Patient is a 77-year-old male who has been diagnosed on August 01, 2015 with prostate cancer, [place] score of 7, moderately to poorly differentiated with 40% involvement, stage T2c N0 M0. Initial PSA was 4.9 ng/mL, status post radiation therapy. Patient recently presented with rectal bleeding so the patient had a colonoscopy by Dr. Foy on September 18, 2017, and the patient was found to have a rectal mass, and the biopsy of that mass came back positive for poorly differentiated colonic adenocarcinoma. 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 Common bile duct dilatation was 1 cm with diffuse rectal wall thickening and mild infiltrative changes in the perirectal fat. CEA done on September 23, 2017 was high at 7.8. His chem panel was totally normal. CBC was also normal. CEA is high at 7.8. Pelvic MRI done on September 26, 2017 showed a newly diagnosed rectal cancer with irregular thickening of the mid rectum 2.5 cm above the anal verge, extending for a distance of 4.4 cm with possible transmural invasion of the perirectal fat. There is no evidence of adenopathy. There was indeterminate enhancing bone lesion in the right inferior sacrum measuring 2.7 cm. Metastasis cannot be excluded. Patient started neoadjuvant chemotherapy with FOLFOX chemotherapy on October 21, 2017. Patient will complete his eighth course of neoadjuvant FOLFOX chemotherapy on March 10, 2018. HISTORY OF PRESENT ILLNESS Patient is here today for his cycle number eight of FOLFOX neoadjuvant chemotherapy for his rectal adenocarcinoma. He is complaining of nasal discharge and epistaxis sometimes. He has also constipation. 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 PAST MEDICAL HISTORY 1. Prostate cancer. 2. History of skin cancer. 3. History of shingles. PAST SURGICAL HISTORY 1. TURP times two. 2. Right inguinal hernia repair. 3. Amputated left toe. 4. Surgery for right ankle fracture. FAMILY HISTORY His father, maternal grandfather, paternal grandfather and brother all had prostate cancer. SOCIAL HISTORY Patient is single with no children. 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 He denies any abuse of tobacco or illicit drugs, but he drinks about five beers per week. CURRENT MEDICATIONS 1. Acyclovir 800 mg daily as needed p.r.n. 2. Eliquis 500 mg twice daily. ALLERGIES 1. PENICILLIN which caused hives. 2. SOY COKER and SOY DUST which cause asthma-like attack. REVIEW OF SYSTEMS CONSTITUTIONAL: No appetite or weight change. No fever, chills or sweating. No recent infection. HEENT: Ears: No tinnitus or hearing problem. Nose: He has nasal discharge. He has also epistaxis intermittently. Throat: No sore throat or mouth ulcers. Eyes: No diplopia or visual changes. RESPIRATORY: No shortness of breath. No cough, expectoration or hemoptysis. CARDIOVASCULAR: No chest pain, orthopnea, or paroxysmal nocturnal dyspnea (PND). No edema. No palpitations. GASTROINTESTINAL: No nausea or vomiting. No diarrhea. He has constipation. No heartburn or swallowing difficulties. No abdominal pain. No jaundice. No hematemesis, melena or rectal bleeding. GENITOURINARY: No hematuria or dysuria. MUSCULOSKELETAL: No pain in the muscles, joints or bones. NEUROLOGICAL: No tingling or numbness in the hands or feet. No headaches or convulsions. 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 HEMATOLOGIC/LYMPHATIC: No bleeding or easy bruising. No weakness or fatigue. No enlarged lymph nodes. SKIN: No skin rash or lumps. PSYCHIATRIC: No anxiety or depression. PHYSICAL EXAMINATION GENERAL: Looks stable. Well-developed, well-nourished, and in no acute distress. VITAL SIGNS: Blood pressure 131/71, pulse 84 per minute, respirations 16 per minute, temperature 97, pulse ox 92% on room air. HEENT: Head: Atraumatic. No sinus tenderness to palpation. Eyes: No icterus or conjunctivitis. Mouth and throat: No oral thrush or mucositis. NECK: Supple. No cervical or supraclavicular lymphadenopathy. LUNGS: Clear to auscultation and percussion bilaterally. HEART: Regular rate and rhythm. No gallops, murmurs, clicks or rubs. ABDOMEN: Soft and lax. No tenderness. No hepatosplenomegaly. No masses. EXTREMITIES: No cyanosis, clubbing or edema. LYMPHATICS: No peripheral lymphadenopathy. NEUROLOGICAL: Conscious, alert and oriented times three. No focal motor or sensory deficits. PSYCHIATRIC: Mood and affect appear normal. SKIN: No skin rash, bruise or purpuric eruption. DIAGNOSTIC DATA CBC showed white count 6000, hemoglobin 14.5, hematocrit 41.7, platelets 94,000. Chem panel totally normal except BUN 8, AST 36, blood sugar 123. CEA is 4.5 which is down from 4.8. ASSESSMENT 1. Rectal adenocarcinoma with a mass infiltrating the wall of the perirectal fat, probably T3 lesion proved by pelvic MRI done September 26, 2017. Colonoscopy done September 18, 2017 did reveal rectal mass, and biopsy was positive for moderately differentiated colonic adenocarcinoma. 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 Patient started neoadjuvant chemotherapy with FOLFOX regimen on October 21, 2017. He developed thrombocytopenia for which modification of the dose was done with better tolerance. His current platelet count is 94,000 and the patient is due for his next cycle of chemotherapy on March 10, 2018. Patient completed seven courses so far and I am planning to proceed with his eighth and last course of chemotherapy on March 10, 2018. His CEA dropped from 7.8 and currently 4.5, continues to drop. MRI of the pelvis December 26, 2017 showed treatment response with decrease in the wall thickness from 10-11 mm to 6 mm, and the intensity of enhancement involving the upper rectal lesion also is getting better. I am planning to proceed with his eighth cycle this time. I will see him in three weeks from now with CBC, chem panel, CEA and MRI of the pelvis. 2. Chemotherapy-induced thrombocytopenia. Current platelet count 94,000. We will continue to monitor. 3. Vitamin B12 deficiency. Continue B12 supplement. His initial vitamin B level was 131 and anti-intrinsic factor antibodies and anti-parietal cell antibodies were negative. 4. Anxiety, on Valium p.r.n. 5. History of shingles, currently on acyclovir 800 mg as a prophylaxis during chemotherapy. PLAN 1. Chemotherapy with FOLFOX cycle #8, if platelet count is above 100,000. 2. CBC and chem panel to be checked weekly. 3. Neulasta 6 mg subcutaneously after each cycle of chemotherapy. 4. Continue B12 shots intramuscularly. 5. Patient to return in three weeks for CBC, chem panel, CEA and MRI of the pelvis. 6. Patient to contact us for any new concerns or complaints. MTDD
[2018-03-10 09:45] VITALS: BP 113/68
[2018-03-11 09:32] VITALS: BP_SYST 113; BP_DIAS 68; BP_DIAS 86
[2018-03-11] MEDS: DEXAMETHASONE SOD PHOS 10MG/ML IVP PRN (09:39)
[2018-03-11] MEDS: PALONOSETRON 0.25 MG/5 ML VIAL IVP PRN (09:40)
[2018-03-11] MEDS: NS(*) 0.9% 500 ML BAG 500 ML IV PRN (09:40)
[2018-03-11] MEDS: FOSAPREPITANT DIM 150 MG/5 ML 150 MG in NS(*) 0.9% 250 ML BAG 245 ML IVPB PRN (10:02)
[2018-03-11] MEDS: DEXTROSE 5%(*) 100 ML BAG 100 ML IVPB PRN (10:38)
[2018-03-13 11:21] VITALS: BP 94/50
[2018-03-13] MEDS: HEPARIN FLSH (PORT) 500 UN/5ML IVP PRN (11:24)
[2018-03-13] MEDS: NS(*) 0.9% 1000 ML BAG 1,000 ML IV PRN (11:25)
[2018-03-17 11:38] VITALS: BP 112/56
[2018-03-17 11:53] LABS: PLATELET COUNT, AUTOMATED 56 K/uL (150-450)
[~2018-03-24] VITALS: Ht 186.7 cm; Wt 84.9 kg
[~2018-03-24 09:30] MED LIST changes: +ALTEPLASE RECOMB 2 MG VIAL IVP PRN; +APIX5TAB PO; +D5W IV ONE; +D5W IVPB ONE; +FLUOROURACIL IV ONE; -GADOBENATE 529MG/1ML 15ML VIAL IVP ONE; +IBUP-136 PO; -IBUP200C71 PO; +LEUCOVORIN CAL IV ONE; +LIDOCAINE/SOD BICARB 8.4% SYR ID PRN; -NS 0.9% 25 ML BAG 50 ML ONE; +NS 0.9% IV ONE; +NS(*) 0.9% 100 ML BAG 100 ML IVPB PRN; +OXALIPLATIN IVPB ONE; +PEGFILGRASTIM 6 MG/0.6 ML SYR SUBQ ONE; +PROMETHAZINE 25 MG/ML 1 ML AMP IVP ONE; +WATER FOR INJ,STERILE 20 ML IVP PRN; +[UNRECOGNIZED DRUG - OTHER] IVPB ONE
[2018-03-24 10:21] LABS: PLATELET COUNT, AUTOMATED 79 K/uL (150-450)
[2018-03-24 10:42] VITALS: BP 102/63
== END 2018-03-27 ==
LOC: SPU 09:30
PROVIDERS: ATTEND Internal Medicine Hematology
DX: Z51.11 Encounter for antineoplastic chemotherapy (principal); C20 Malignant neoplasm of rectum; D69.59 Other secondary thrombocytopenia; T45.1X5A Adverse effect of antineoplastic and immunosuppressive drugs, initial encounter; E53.8 Deficiency of other specified B group vitamins; F41.9 Anxiety disorder, unspecified; R05 Cough; R53.1 Weakness; R53.83 Other fatigue; Z85.46 Personal history of malignant neoplasm of prostate
CPT/HCPCS: 36415; 82378; 83735; 85025; 85027; 96367; 96368; 96372; 96374; 96375; 96413; 96415; 96416; G0463; J0640; J1100; J1453; J1642; J2469; J2505; J2550; J3420; J7030; J7040; J7050; J7060; J9263; 82040; 82247; 82310; 82374; 82435; 82565; 82947; 84075; 84132; 84155; 84295; 84450; 84460; 84520; 99212

== ENCOUNTER 2018-06-27 13:19 | Outpatient (RCR) | payer MEDICARE ==
[2018-03-31 09:17] VITALS: BP 110/53
[2018-03-31 09:33] LABS: PLATELET COUNT, AUTOMATED 122 K/uL (150-450)
[2018-04-07 12:14] LABS: PLATELET COUNT, AUTOMATED 109 K/uL (150-450)
[2018-04-07] MEDS: HEPARIN FLSH (PORT) 500 UN/5ML IVP PRN (14:03)
--- NOTE | 2018-04-08 14:07 | RADIOLOGY IMAGING REPORT ---
FACILITY: [facility] PATIENT NAME: Tyrone Justin : 1940 MR: [id number] V: [id number] EXAM DATE: ORDERING PHYSICIAN: NATHANAEL BEARDEN TECHNOLOGIST: Location: [facility] [place] Patient: Tyrone Justin : 1940 Visit/Account:[id number] Date of Sevice: 04/07/2018 Exam type: PELVIS W W/O CONTRAST History: 77-year-old male with rectal cancer, evaluate treatment response. TECHNIQUE: Multiplanar multisequence MRI imaging of the pelvis was performed with and without contras t. Patient received 15 cc of MultiHance contrast was study. Comparison: Pelvic MRI 12/26/2017, pelvic MRI , CT scan 09/23/2017. Findings: Reidentified is an area of noncircumferential thickening and enhancement of the rectum 3.7 cm from an al verge overall unchanged from MRI 12/26/2017. There appear to be transmural extension of tumor which is unchanged. There is some thickening and decompression of this segment which is slightly more pro minent than the baseline MRI. Closest margin to the mesorectal fascia is 4 mm. No evidence for obst ruction. No pathologic adenopathy in the pelvis. Patient has extensive sigmoid diverticulosis. There is a TURP defect the prostate gland. Metallic fiducials are once again noted the prostate glan d. No evidence for enhancing bone lesions. IMPRESSION: 1. No significant interval change from MRI 01/15/2018. There is an enhancing noncircumferential mass in the rectum 3.7 cm from the anal verge with what appears to be transmural extension of tumor. 2. No evidence for complete bowel obstruction. Closest margin to the mesorectal fascia is 4 mm. No pathologic adenopathy in the deep pelvis. Report Dictated By: Kalen Kauffman MD at 04/08/2018 1:30 PM Report E-Signed By: Kalen Kauffman MD at 04/08/2018 2:03 PM WSN:[email or web address]
[2018-04-11 13:06] VITALS: BP 121/74
--- NOTE | 2018-04-12 16:53 | ONCOLOGY FOLLOW UP NOTE ---
EVENT DATE: April 11, 2018 DIAGNOSES 1. Rectal adenocarcinoma. 2. History of prostate cancer. 3. Anxiety. 4. History of shingles. CHIEF COMPLAINT Patient is here today for followup of his rectal adenocarcinoma. ONCOLOGY HISTORY Patient is a 77-year-old male who has been diagnosed on August 01, 2015, with prostate cancer, Alisia score of 7, moderately to poorly differentiated with 40% involvement, stage T2c N0 M0. Initial PSA was 4.9 ng/mL status post radiation therapy. Patient recently presented with rectal bleeding, so the patient had a colonoscopy by Dr. Foy on September 18, 2017, and the patient was found to have a rectal mass. The biopsy of that mass came back positive for poorly differentiated colonic adenocarcinoma. 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 CEA done on September 23, 2017, was high at 7.8. His chem panel was totally normal. CBC was also normal. CEA was high at 7.8. Pelvic MRI done on September 26, 2017, showed a newly diagnosed rectal cancer with irregular thickening of the mid rectum 2.5 cm above the anal verge, extending for a distance of 4.4 cm with possible transmural invasion of the perirectal fat. There was no evidence of adenopathy. There was indeterminate enhancing bone lesion in the right inferior sacrum measuring 2.7 cm. Metastasis could not be excluded. Patient started neoadjuvant chemotherapy with FOLFOX chemotherapy on October 21, 2017. Patient will complete his eighth course of neoadjuvant FOLFOX chemotherapy on March 10, 2018. HISTORY OF PRESENT ILLNESS Patient is here today for followup of his rectal adenocarcinoma after he finished eight cycles of neoadjuvant chemotherapy with FOLFOX chemotherapy. No radiation therapy was given because of the previous radiation of the prostate cancer. Patient is doing fine currently. He has some abdominal cramps. He has constipation, but other than that, he is doing fine. PAST MEDICAL HISTORY 1. Prostate cancer. 2. History of skin cancer. 3. History of shingles. PAST SURGICAL HISTORY 1. TURP times two. 2. Right inguinal hernia repair. 3. Amputated left toe. 4. Surgery for right ankle fracture. FAMILY HISTORY His father, maternal grandfather, paternal grandfather, and brother all had prostate cancer. SOCIAL HISTORY Patient is single with no children. 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 He denies any abuse of tobacco or illicit drugs, but he drinks about five beers per week. CURRENT MEDICATIONS 1. Acyclovir 800 mg daily as needed p.r.n. 2. Eliquis 500 mg twice daily. ALLERGIES 1. PENICILLIN which caused hives. 2. SOY COKER and SOY DUST which cause asthma-like attack. REVIEW OF SYSTEMS CONSTITUTIONAL: No appetite or weight change. No fever, chills, or sweating. No recent infection. HEENT: Ears: No tinnitus or hearing problem. Nose: No nasal discharge or epistaxis. Throat: No sore throat or mouth ulcers. Eyes: No diplopia or visual changes. RESPIRATORY: No shortness of breath. No cough, expectoration, or hemoptysis. CARDIOVASCULAR: No chest pain, orthopnea, or paroxysmal nocturnal dyspnea (PND). No edema. No palpitations. GASTROINTESTINAL: No nausea or vomiting. No diarrhea. He has constipation. He has abdominal cramps from constipation sometimes. No change in bowel movements. No heartburn or swallowing difficulties. No abdominal pain. No jaundice. No hematemesis, melena, or rectal bleeding. GENITOURINARY: No hematuria or dysuria. MUSCULOSKELETAL: No pain in the muscles, joints, or bones. NEUROLOGICAL: No tingling or numbness in the hands or feet. No headaches or convulsions. HEMATOLOGIC/LYMPHATIC: No bleeding or easy bruising. No weakness or fatigue. No enlarged lymph nodes. SKIN: No skin rash or lumps. PSYCHIATRIC: No anxiety or depression. PHYSICAL EXAMINATION GENERAL: Looks stable. Well developed, well nourished, and in no acute distress. VITAL SIGNS: Blood pressure 121/74, pulse 61 per minute, respirations 16 per minute, temperature 96.8, pulse ox 95% on room air. HEENT: Head: Atraumatic. No sinus tenderness to palpation. Eyes: No icterus or conjunctivitis. Mouth and throat: No oral thrush or mucositis. NECK: Supple. No cervical or supraclavicular lymphadenopathy. LUNGS: Clear to auscultation and percussion bilaterally. HEART: Regular rate and rhythm. No gallops, murmurs, clicks, or rubs. ABDOMEN: Soft and lax. No tenderness. No hepatosplenomegaly. No masses. EXTREMITIES: No cyanosis, clubbing, or edema. LYMPHATICS: No peripheral lymphadenopathy. NEUROLOGICAL: Conscious, alert, and oriented times three. No focal motor or sensory deficits. PSYCHIATRIC: Mood and affect appear normal. SKIN: No skin rash, bruise, or purpuric eruption. DIAGNOSTIC DATA CBC showed white count 4.6, hemoglobin 14.7, hematocrit 43.3, and the platelet count 109,000. BUN is 7. CEA is 5.6, which is down from 7.8 prior to starting chemotherapy. MRI of the pelvis done on the March showed enhancing mass noncircumferential in the rectum 3.7 cm from the anal verge with transmural extension, no lymphadenopathy, and no changes from the previous MRI of the pelvis done in December 2017. ASSESSMENT 1. Rectal adenocarcinoma with a mass infiltrating the wall of the perirectal fat, probably T3 lesion, proven by pelvic MRI done September 26, 2017. Colonoscopy done September 18, 2017, did reveal rectal mass, and the biopsy was positive for moderately differentiated colonic adenocarcinoma. 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 Patient started neoadjuvant chemotherapy with FOLFOX regimen October 21, 2017. He developed thrombocytopenia, for which modification of the dose was done with better tolerance. His current platelet count after he finished his treatment is reasonable at 109,000. Patient completed eight courses of FOLFOX on the February. Pelvic MRI done on the March showed enhancing mass noncircumferential in the rectum 3.7 cm from the anal verge with transmural extension, no lymphadenopathy, and no changes from his previous MRI of the pelvis done in December 2017. Patient had a lot of questions, and all of his questions are answered to his satisfaction today. Patient would like to see a rectal surgeon for further second opinion, and I am planning to refer him to the [facility] in [place]. I am planning to see him two weeks after his surgery to discuss the result of his pathology and to further chemotherapy if indicated. 2. Chemotherapy-induced thrombocytopenia. Current platelet count 109,000. Will continue to monitor. 3. Vitamin B12 deficiency. Continue B12 supplement. His initial vitamin B level was 131, but anti-intrinsic factor antibodies and prior anti-parietal cell antibodies were negative. 4. Anxiety, on Valium p.r.n. 5. History of shingles, on acyclovir 800 mg as a prophylaxis during chemotherapy. PLAN 1. Continue followup. 2. Refer to the [facility] [place]. 3. Patient to return two weeks after his surgery with CBC, chem panel, and CEA. 4. Patient to contact us for any new concern or complaints. SOFÍAD
[2018-05-07 13:52] VITALS: BP 124/71
[2018-05-07 14:47] LABS: PLATELET COUNT, AUTOMATED 111 K/uL (150-450)
--- NOTE | 2018-05-07 17:23 | ONCOLOGY FOLLOW UP NOTE ---
EVENT DATE: May 07, 2018 REASON FOR FOLLOWUP 1. Rectal adenocarcinoma. 2. History of prostate cancer. INTERIM HISTORY Tyrone returns to clinic for a followup visit today. Since our last clinic visit, he has been working with Dr. Christianson, and he has completed eight cycles of neoadjuvant chemotherapy. He recently visited with colleagues at the [facility] in Surgery and Radiation Oncology. Recommendation made at that time was for him to complete 12 cycles of neoadjuvant FOLFOX chemotherapy and to continue with surgical resection. The feeling was that radiation could and should be avoided in his particular situation given his history of pelvic irradiation for prostate cancer. Tyrone reports that he has been feeling okay for the most part. He does have some mild lingering tingling in his fingertips, but he has had no neuropathic problems with his feet. He has had ongoing issues with constipation, but [id number] Colace has been helping most recently. He has noticed a little bit of blood in his stool. He reports no shortness of breath, chest pain, or cough. He denies fever. Otherwise, his appetite has been pretty good, and his weight has been stable. REVIEW OF SYSTEMS Otherwise negative, and all systems were reviewed. PAST MEDICAL HISTORY 1. Prostate cancer, as above. 2. Reported history of skin cancer. 3. Reported history of shingles. PAST SURGICAL HISTORY 1. Status post TURP times two. 2. Status post repair of right inguinal hernia. 3. Status post amputation of toe of left foot. 4. Status post right ankle surgery for fracture. FAMILY HISTORY There is a history of prostate cancer in his father, maternal grandfather, paternal grandfather, and brother. 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 He is single. He has no history of alcohol abuse, but he does drink about five beers per week. He does not smoke, and there is no history of illicit drug use. CURRENT MEDICATIONS 1. Home antiemetics. 2. Colace p.r.n. 3. Oxycodone/acetaminophen p.r.n. 4. Tylenol p.r.n. 5. Valium p.r.n. 6. Acyclovir. ALLERGIES 1. PENICILLIN G. 2. SOY COKER. VITAL SIGNS Temperature is 98.5, blood pressure 124/71, heart rate is 87, respirations 16, oxygen saturation is 92% on room air. Weight is 85.9 kg. PHYSICAL EXAMINATION GENERAL: Patient is alert and oriented times three, in no apparent distress, sitting in the exam room chair. HEENT: Anicteric sclerae. No significant oropharyngeal lesions. NEUROLOGIC: Grossly nonfocal, and his gait is normal. EXTREMITIES: No edema, clubbing, or cyanosis. There is no erythema or tenderness to palpation. LABORATORY STUDIES Reviewed per the [facility] record. IMAGING Reviewed per the [facility] and [facility] records. ASSESSMENT AND RECOMMENDATIONS Rectal cancer. I visited with Tyrone today in clinic. Again, he is followed here by Dr. Christianson, but he is here for another opinion today. As discussed, I have reviewed extensive notes and further workup since the time of our last visit, and if it is indeed felt that radiation is not imperative for his care, and that after neoadjuvant is complete, that he go for low anterior resection, then I would concur. He has done well with chemotherapy to date, and I do think he would tolerate another four cycles of neoadjuvant chemotherapy without significant difficulty. As discussed, I would want him to see me again in clinic at Dr. Christianson's discretion. [facility]
[2018-05-09 10:02] VITALS: BP 124/71
--- NOTE | 2018-05-10 08:11 | EL-TARABILY ONCOLOGY NOTE ---
EVENT DATE: May 09, 2018 DIAGNOSES 1. Rectal adenocarcinoma. 2. History of prostate cancer. 3. Anxiety. 4. History of shingles. CHIEF COMPLAINT Patient is here today for followup of his rectal adenocarcinoma. ONCOLOGY HISTORY Patient is a 77-year-old male who has been diagnosed on August 01, 2015, with prostate cancer, Alisia score of 7, moderately to poorly differentiated with 40% involvement, stage T2c N0 M0. Initial PSA was 4.9 ng/mL status post radiation therapy. Patient recently presented with rectal bleeding, so the patient had a colonoscopy by Dr. Foy on September 18, 2017, and the patient was found to have a rectal mass. The biopsy of that mass came back positive for poorly differentiated colonic adenocarcinoma. 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 CEA done on September 23, 2017, was high at 7.8. His chem panel was totally normal. CBC was also normal. CEA was high at 7.8. Pelvic MRI done on September 26, 2017, showed a newly diagnosed rectal cancer with irregular thickening of the mid rectum 2.5 cm above the anal verge, extending for a distance of 4.4 cm with possible transmural invasion of the perirectal fat. There was no evidence of adenopathy. There was indeterminate enhancing bone lesion in the right inferior sacrum measuring 2.7 cm. Metastasis could not be excluded. Patient started neoadjuvant chemotherapy with FOLFOX chemotherapy on October 21, 2017. Patient will complete his eighth course of neoadjuvant FOLFOX chemotherapy on March 10, 2018. HISTORY OF PRESENT ILLNESS Patient is here today for followup of his rectal adenocarcinoma on FOLFOX chemotherapy neoadjuvant treatment. Patient has been evaluated by rectal surgeon at [facility] with recommendation of completing chemotherapy for 12 cycles prior to going for surgery as the patient is not a candidate for radiation therapy. He is doing fine currently. He has some constipation. He has rectal bleeding sometime. He has some neuropathy in his fingers. Other than that, his general condition is stable. PAST MEDICAL HISTORY 1. Prostate cancer. 2. History of skin cancer. 3. History of shingles. PAST SURGICAL HISTORY 1. TURP times two. 2. Right inguinal hernia repair. 3. Amputated left toe. 4. Surgery for right ankle fracture. FAMILY HISTORY His father, maternal grandfather, paternal grandfather, and brother all had prostate cancer. SOCIAL HISTORY Patient is single with no children. 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 He denies any abuse of tobacco or illicit drugs, but he drinks about five beers per week. CURRENT MEDICATIONS 1. Acyclovir 800 mg daily as needed p.r.n. 2. Eliquis 500 mg twice daily. ALLERGIES 1. PENICILLIN which caused hives. 2. SOY COKER and SOY DUST which cause asthma-like attack. REVIEW OF SYSTEMS CONSTITUTIONAL: No appetite or weight change. No fever, chills, or sweating. No recent infection. HEENT: Ears: No tinnitus or hearing problem. Nose: No nasal discharge or epistaxis. Throat: No sore throat or mouth ulcers. Eyes: No diplopia or visual changes. RESPIRATORY: No shortness of breath. No cough, expectoration, or hemoptysis. CARDIOVASCULAR: No chest pain, orthopnea, or paroxysmal nocturnal dyspnea (PND). No edema. No palpitations. GASTROINTESTINAL: He has constipation and rectal bleeding sometimes. GENITOURINARY: No hematuria or dysuria. MUSCULOSKELETAL: No pain in the muscles, joints, or bones. NEUROLOGICAL: He has some neuropathy in his fingers. HEMATOLOGIC/LYMPHATIC: No bleeding or easy bruising. No weakness or fatigue. No enlarged lymph nodes. SKIN: No skin rash or lumps. PSYCHIATRIC: No anxiety or depression. PHYSICAL EXAMINATION GENERAL: Looks stable. Well developed, well nourished, and in no acute distress. VITAL SIGNS: Blood pressure 124/71, pulse 58 per minute, respirations 16 per minute, temperature 96.4, pulse ox 92% on room air. HEENT: Head: Atraumatic. No sinus tenderness to palpation. Eyes: No icterus or conjunctivitis. Mouth and throat: No oral thrush or mucositis. NECK: Supple. No cervical or supraclavicular lymphadenopathy. LUNGS: Clear to auscultation and percussion bilaterally. HEART: Regular rate and rhythm. No gallops, murmurs, clicks, or rubs. ABDOMEN: Soft and lax. No tenderness. No hepatosplenomegaly. No masses. EXTREMITIES: No cyanosis, clubbing, or edema. LYMPHATICS: No peripheral lymphadenopathy. NEUROLOGICAL: Conscious, alert, and oriented times three. No focal motor or sensory deficits. PSYCHIATRIC: Mood and affect appear normal. SKIN: No skin rash, bruise, or purpuric eruption. DIAGNOSTIC DATA CBC showed white count 3.4, hemoglobin 14.5, hematocrit 42.3, and the platelet count 111,000. ANC 2.2. Blood sugar 119. Other chem panel is normal. CEA is 5.6. Pelvic MRI on April 07, 2018 did not show any changes from the previous MRI. There was enhancing noncircumferential mass 3.7 cm from the anal verge with transmural extension and no lymphadenopathy. ASSESSMENT 1. Rectal adenocarcinoma with a mass infiltrating the wall of the perirectal fat, probably T3 lesion by pelvic MRI done September 26, 2017. Colonoscopy done September 18, 2017 did reveal rectal mass and the biopsy was positive for moderately differentiated colonic adenocarcinoma. 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 Patient started neoadjuvant chemotherapy with FOLFOX regimen October 21, 2017. He developed thrombocytopenia, for which modification of the dose was done with better tolerance. Current platelet count is 111,000. Patient completed eight courses of FOLFOX on March 10, 2018. Pelvic MRI on April 07, 2018 showed enhancing mass circumferential in the rectum 3.7 from the anal verge with transmural extension and no lymphadenopathy and no changes from the previous MRI done December 2017. Patient has been seen by rectal surgeon at [facility] with recommendation of no further radiation therapy but patient could complete neoadjuvant chemotherapy for up to 12 cycles and then the patient will go for surgical resection. I am planning to proceed with his ninth cycle and the patient prefers to start the treatment after so we will schedule him on May 20, 2018 to start his ninth cycles of FOLFOX. I will see him two weeks after that with CBC, chem panel and CEA and I will check same labs prior to the chemotherapy and check CBC and chem panel on a weekly basis. 2. Chemotherapy-induced thrombocytopenia. Current platelet count 111,000. Will continue to monitor. 3. Vitamin B12 deficiency., on B12 supplement. His initial vitamin B12 level was 131. Anti-intrinsic factor antibodies and anti-parietal cell antibodies were negative. 4. Anxiety, on Valium p.r.n. 5. History of shingles, on acyclovir 800 mg as prophylaxis during chemotherapy. PLAN 1. FOLFOX cycle #9 on May 20, 2018. 2. CBC and chem panel to be checked weekly. 3. Patient to return in two weeks after chemotherapy with CBC, chem panel and CEA, which will be checked also prior to his chemotherapy. 4. Patient to contact us for any new concerns or complaints. MTDD
[2018-05-19 09:27] VITALS: BP 122/73
[2018-05-19 09:36] LABS: PLATELET COUNT, AUTOMATED 131 K/uL (150-450)
[2018-05-19] MEDS: PALONOSETRON 0.25 MG/5 ML VIAL IVP PRN (10:33)
[2018-05-19] MEDS: NS(*) 0.9% 500 ML BAG 500 ML IV PRN (10:33)
[2018-05-19] MEDS: FOSAPREPITANT DIM 150 MG/5 ML 150 MG in NS(*) 0.9% 250 ML BAG 245 ML IVPB PRN (10:52)
--- NOTE | 2018-05-20 07:40 | NUR ---
SOHEILA rec'd a referral from RN for counseling and clinical psychiatrist for the patient. SOHEILA made counseling referral to Devorah Amin, appointment scheduled ffor Saturday05/27/18 at 1:00. SOHEILA provided number for Cleo Ma, clinical psychiatrist for medication management.
--- NOTE | 2018-05-20 09:46 | NUR ---
SOHEILA spoke with the patient after Meryl Ruiz the message left yesterday. Meryl indicated he would have some availability at 2:00 next (05/29/18) and would appreciate a call back to confirm. SOHEILA gave pt this information and requested him to call Meryl to confirm.
[2018-05-21 12:07] VITALS: BP 98/53
[2018-05-21] MEDS: HEPARIN FLSH (PORT) 500 UN/5ML IVP PRN (12:12)
[2018-05-28 10:41] VITALS: BP 113/65
[2018-05-28 11:06] LABS: PLATELET COUNT, AUTOMATED 64 K/uL (150-450)
[2018-06-04 10:01] VITALS: BP 115/66
[2018-06-04 10:15] LABS: PLATELET COUNT, AUTOMATED 121 K/uL (150-450)
[2018-06-09 09:08] VITALS: BP 112/70
[2018-06-09] MEDS: NS(*) 0.9% 500 ML BAG 500 ML IV PRN (10:27)
[2018-06-09] MEDS: PALONOSETRON 0.25 MG/5 ML VIAL IVP PRN (10:27)
[2018-06-09] MEDS: FOSAPREPITANT DIM 150 MG/5 ML 150 MG in NS(*) 0.9% 250 ML BAG 245 ML IVPB PRN (10:54)
--- NOTE | 2018-06-10 10:45 | ONCOLOGY FOLLOW UP NOTE ---
EVENT DATE: June 09, 2018 CHIEF COMPLAINT Followup for rectal carcinoma. HISTORY OF PRESENT ILLNESS Patient is a 78-year-old male who is seen today for consideration of cycle #10 of FOLFOX. 5-FU push has been eliminated due to thrombocytopenia. He also requires Neulasta due to previous neutropenia. Today, he presents and is feeling fairly well. He states that after cycle #9 he vomited for three days after discontinuing the pump. He also developed significant constipation at that time. He has chronic urinary frequency and complains of some mild numbness and tingling in his fingers and toes. He wonders whether he can actually receive all 12 cycles of treatment after his experience with cycle #9. ONCOLOGY HISTORY Patient is a 77-year-old male who has been diagnosed on August 01, 2015, with prostate cancer, Alisia score of 7, moderately to poorly differentiated with 40% involvement, stage T2c N0 M0. Initial PSA was 4.9 ng/mL. Status post radiation therapy. Patient presented with rectal bleeding and colonoscopy by Dr. Foy on September 18, 2017 noted a rectal mass. The biopsy of that mass came back positive for poorly differentiated colonic adenocarcinoma. 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 CEA done on September 23, 2017, was high at 7.8. CBC and CMP were normal. Pelvic MRI done on September 26, 2017, showed the newly diagnosed rectal cancer with irregular thickening of the mid rectum 2.5 cm above the anal verge, extending for a distance of 4.4 cm with possible transmural invasion of the perirectal fat. There was no evidence of adenopathy. There was indeterminate enhancing bone lesion in the right inferior sacrum measuring 2.7 cm. Metastasis could not be excluded. Patient started neoadjuvant chemotherapy with FOLFOX chemotherapy on October 21, 2017. PAST MEDICAL HISTORY 1. Prostate cancer. 2. History of skin cancer. 3. History of shingles. 4. Right IJ clot, November 2017. PAST SURGICAL HISTORY 1. TURP times two. 2. Right inguinal hernia repair. 3. Amputated left toe. 4. Surgery for right ankle fracture. FAMILY HISTORY His father, maternal grandfather, paternal grandfather, and brother all had prostate cancer. SOCIAL HISTORY Patient is single with no children. 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 He denies any abuse of tobacco or illicit drugs, but he drinks about five beers per week. CURRENT MEDICATIONS 1. Acyclovir 800 mg daily as needed p.r.n. 2. Vitamin D3 1000iu daily 3. Metoprolol 50mg daily 4. Spironolactone 50mg daily 5. Levothyroxine 25mcg daily ALLERGIES 1. PENICILLIN which caused hives. 2. SOY COKER and SOY DUST which cause asthma-like attack. REVIEW OF SYSTEMS A 12-point review of systems is performed and is negative except as stated above. PHYSICAL EXAMINATION VITAL SIGNS: Weight 85.5 kg, BP 112/70, P 56, R 16, temperature 97.0, OS sat 94%. GENERAL: Patient is a well-developed, well-nourished male in no acute distress. HEAD: Normocephalic, atraumatic. EYES: Sclerae anicteric. MOUTH: Moist mucous membranes. NECK: Supple. No palpable adenopathy. LUNGS: Clear bilaterally. CARDIOVASCULAR: Heart rate regular, 56 per minute without murmur, S3 or S4. ABDOMEN: Soft, nontender with active bowel sounds. EXTREMITIES: No edema. NEURO: Nonfocal. LABS CBC today reveals WBC of 4.1, ANC 2.0, hemoglobin 15.0, hematocrit 43.5, platelets 132,000. CMP is within normal limits except for minimally elevated AST of 38. CEA is pending. ASSESSMENT/PLAN The patient is a 78-year-old male with rectal carcinoma with mass infiltrating the wall of the perirectal fat, T3 by pelvic MRI done September 26, 2017. Colonoscopy on September 18, 2017 revealed a rectal mass, biopsy positive for moderately differentiated colonic adenocarcinoma. Began neoadjuvant chemotherapy with FOLFOX on October 21, 2017. 5-FU push was discontinued due to thrombocytopenia. 1. Rectal carcinoma. Cycle #10 of FOLFOX today. 5-FU push will be held due to previous thrombocytopenia. The plan is to complete 12 cycles of treatment. He will then be seen in [place] by the colorectal surgeon for resection and ileostomy placement. He believes the ileostomy will be reversible. 2. Thrombocytopenia. Platelet count is stable, today 132,000. He has had no excessive bleeding or bruising. 3. B12 deficiency. Initial B12 was 131. He continues on B12 monthly. He request a B12 level be checked today. We reviewed that his hemoglobin today is 15.0. 4. Right IJ clot. Previously treated with Eliquis. He states he has been off this for several months. There is no evidence of swelling in the area. 5. Neuropathy. Mild numbness and tingling in his fingers and toes. He does not think this interferes with activities of daily living. 6. GI. Significant nausea and vomiting on the , Saturday and Saturday after last treatment. We discussed proactively hydrating him with antiemetics on Saturday when he comes for pump disconnect. He will also receive Neulasta that day. He can then be seen and Saturday for hydration with antiemetics if needed. Patient is in agreement with this plan. 7. Follow up in two weeks for cycle #11 of treatment. MTDD
[2018-06-11] MEDS: NS(*) 0.9% 1000 ML BAG 1,000 ML IV PRN (12:30)
[2018-06-11 13:42] VITALS: BP 128/78
[2018-06-12 10:11] VITALS: BP 123/79
[2018-06-12] MEDS: NS(*) 0.9% 1000 ML BAG 1,000 ML IV PRN (10:11)
[2018-06-12] MEDS: HEPARIN FLSH (PORT) 500 UN/5ML IVP PRN (10:14)
[2018-06-12 12:59] VITALS: BP 118/65
--- NOTE | 2018-06-12 14:05 | ONCOLOGY FOLLOW UP NOTE ---
EVENT DATE: June 12, 2018 CHIEF COMPLAINT Followup for nausea, vomiting and diarrhea. HISTORY OF PRESENT ILLNESS Patient is a 78-year-old male who is seen today in followup after receiving cycle #10 of FOLFOX. 5-FU push was eliminated due to previous thrombocytopenia. He received Neulasta following his treatment. When seen on June 09, 2018, he mentioned that he has had issues with significant nausea and vomiting for three to four days after discontinuing the pump. He returned yesterday and received hydration with IV Phenergan, which helped somewhat. He presents again today with continued nausea. He also describes GERD symptoms as well as loose stools with some lower abdominal cramping. He states that he does not believe he will be able to take all 12 cycles of his treatment. ONCOLOGY HISTORY Patient is a 77-year-old male who has been diagnosed on August 01, 2015, with prostate cancer, Alisia score of 7, moderately to poorly differentiated with 40% involvement, stage T2c N0 M0. Initial PSA was 4.9 ng/mL. Status post radiation therapy, completed May 03, 2016. Patient presented with rectal bleeding and colonoscopy by Dr. Foy on September 18, 2017 noted a rectal mass. The biopsy of that mass came back positive for poorly differentiated colonic adenocarcinoma. 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 CEA done on September 23, 2017, was high at 7.8. CBC and CMP were normal. Pelvic MRI done on September 26, 2017, showed the newly diagnosed rectal cancer with irregular thickening of the mid rectum 2.5 cm above the anal verge, extending for a distance of 4.4 cm with possible transmural invasion of the perirectal fat. There was no evidence of adenopathy. There was indeterminate enhancing bone lesion in the right inferior sacrum measuring 2.7 cm. Metastasis could not be excluded. Patient started neoadjuvant chemotherapy with FOLFOX chemotherapy on October 21, 2017. PAST MEDICAL HISTORY 1. Prostate cancer. 2. History of skin cancer. 3. History of shingles. 4. Right IJ clot, November 2017. PAST SURGICAL HISTORY 1. TURP times two. 2. Right inguinal hernia repair. 3. Amputated left toe. 4. Surgery for right ankle fracture. FAMILY HISTORY His father, maternal grandfather, paternal grandfather, and brother all had prostate cancer. SOCIAL HISTORY Patient is single with no children. 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 He denies any abuse of tobacco or illicit drugs, but he drinks about five beers per week. CURRENT MEDICATIONS 1. Acyclovir 800 mg daily as needed p.r.n. 2. Vitamin D3 1000 international units daily. 3. Metoprolol 50 mg daily. 4. Spironolactone 50 mg daily. 5. Levothyroxine 25 mcg daily. ALLERGIES 1. PENICILLIN which caused hives. 2. SOY COKER and SOY DUST which cause asthma-like attack. REVIEW OF SYSTEMS A 12-point review of systems is performed and is negative except as stated above. PHYSICAL EXAMINATION VITAL SIGNS: Blood pressure 123/79, pulse 70, respirations 17, temperature 98.7, O2 sat 91%. GENERAL: Patient is a well-developed but ill-appearing male in no acute distress. HEAD: Normocephalic, atraumatic. EYES: Sclerae anicteric. MOUTH: Dry mucous membranes. No lesions. NECK: Supple. No palpable adenopathy. LUNGS: Slightly diminished but clear. CARDIOVASCULAR: Heart rate regular with occasional extra beat, 70 per minute ABDOMEN: Exam deferred due to nausea. . EXTREMITIES: No edema. NEURO: Nonfocal. LABS No labs today. ASSESSMENT/PLAN The patient is a 78-year-old male with rectal carcinoma with mass infiltrating the wall of the perirectal fat, T3 by pelvic MRI done September 26, 2017. Colonoscopy on September 18, 2017 revealed a rectal mass, biopsy positive for moderately differentiated colonic adenocarcinoma. Began neoadjuvant chemotherapy with FOLFOX on October 21, 2017. 5-FU push was discontinued due to thrombocytopenia. 1. Rectal carcinoma. Patient completed 10 cycles of FOLFOX. 5-FU push was held due to previous thrombocytopenia. The initial plan was to complete 12 cycles of treatment and then be seen in [place] by Dr. Soto, colorectal surgeon, for resection and ileostomy placement. However, patient does not feel he will be able to take the remaining two treatments. I have reviewed this with Dr. Christianson, who said that once recovered from treatment he can be seen in [place] for surgical evaluation. Patient is in agreement with this plan. 2. Response. CEA has increased from 5.6 in March to 7.2 in May. As above, treatment will now be held and once recovered he will be seen in [place] for surgery. 3. Nausea and vomiting. Hydrate with 1L of normal saline with Phenergan 12.5 mg IV today. 4. Gastroesophageal reflux disease. Add Pepcid 20 mg IV today. Patient does not believe he will be able to take anything by mouth. 5. Follow up tomorrow for hydration. He will also receive IV Phenergan and Pepcid pending his symptoms tomorrow. I recommended he be seen in the emergency room over the if he was not able to control his nausea and vomiting. 6. Follow up in one week for reevaluation. CBC and CMP will be done at that time. MTDD
[2018-06-13] MEDS: NS(*) 0.9% 1000 ML BAG 1,000 ML IV PRN (09:00)
[2018-06-13 09:07] VITALS: BP 124/69
[2018-06-18 09:05] VITALS: BP 126/67
[2018-06-18 09:34] LABS: PLATELET COUNT, AUTOMATED 83 K/uL (150-450)
[2018-06-25 10:35] VITALS: BP 114/89
[2018-06-25 10:37] LABS: PLATELET COUNT, AUTOMATED 120 K/uL (150-450)
--- NOTE | 2018-06-25 14:39 | NUR ---
Initial HADS completed 11/05/17 (was not documented in [place]) D-5, A-9 (moderate)
[~2018-06-27] VITALS: Ht 187.5 cm; Wt 86.7 kg
[~2018-06-27 13:19] MED LIST changes: +CYANOCOBALAMIN 1000MCG/ML VIAL IM ONLY ONE; +D5W IV PRN; -D5W IVPB ONE; +DEXAMETHASONE INJ 100 MG/10 ML IVP PRN; +DEXAMETHASONE SOD PHOS 10MG/ML IVP PRN; +DEXTROSE 5%(*) 100 ML BAG 100 ML IVPB PRN; +FAMOTIDINE(*) 20MG/50ML PREMIX 50 ML IVPB ONE; +FLUOROURACIL IV PRN; +GADOBENATE 529MG/1ML 15ML VIAL IVP ONE; +LEUCOVORIN CAL IV PRN; +NS 0.9% IV PRN; +NS(*) 0.9% 50 ML BAG 50 ML ONE; +OXALIPLATIN IVPB PRN; +PEGFILGRASTIM 6 MG/0.6 ML SYR SUBQ PRN; +PROMETHAZINE 25 MG/ML 1 ML AMP IVP PRN; +[UNRECOGNIZED DRUG - OTHER] IVPB PRN
[2018-06-27 13:30] VITALS: BP 118/71
--- NOTE | 2018-06-27 20:57 | [facility] ONCOLOGY NOTE ---
EVENT DATE: June 27, 2018 DIAGNOSES 1. Rectal adenocarcinoma. 2. History of prostate cancer. 3. Anxiety. 4. History of shingles. CHIEF COMPLAINT Patient is here today for followup of his rectal adenocarcinoma. ONCOLOGY HISTORY Patient is a 77-year-old male who had been diagnosed on August 01, 2015, with prostate cancer, Imperial score of 7, moderately to poorly differentiated with 40% involvement, stage T2c N0 M0. Initial PSA was 4.9 ng/mL status post radiation therapy. Patient recently presented with rectal bleeding, so the patient had a colonoscopy by Dr. Foy on September 18, 2017, and the patient was found to have a rectal mass. The biopsy of that mass came back positive for poorly differentiated colonic adenocarcinoma. 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 CEA done on September 23, 2017, was high at 7.8. His chem panel was totally normal. CBC was also normal. CEA was high at 7.8. Pelvic MRI done on September 26, 2017, showed a newly diagnosed rectal cancer with irregular thickening of the mid rectum 2.5 cm above the anal verge, extending for a distance of 4.4 cm with possible transmural invasion of the perirectal fat. There was no evidence of adenopathy. There was an indeterminate enhancing bone lesion in the right inferior sacrum measuring 2.7 cm. Metastasis could not be excluded. Patient started neoadjuvant chemotherapy with FOLFOX chemotherapy on October 21, 2017. Patient will complete his eighth course of neoadjuvant FOLFOX chemotherapy on March 10, 2018. Patient received 10 courses of adjuvant FOLFOX therapy, completed on the May, and the patient refused to take the last two cycles of FOLFOX. HISTORY OF PRESENT ILLNESS Patient is here today for followup of his rectal adenocarcinoma with neoadjuvant chemotherapy with FOLFOX. Patient has been evaluated by a surgeon at [facility] with recommendation of completing chemotherapy for 12 courses prior to going for surgery as the patient is not a candidate for radiation therapy. He completed 10 courses, and the patient refused to take the other two courses because of the side effects from his chemotherapy. He is complaining of currently of occasional sweating. He has had two episodes of bloody nose which resolved by itself. He has occasional nausea after the chemo. He has constipation. He has occasional rectal bleeding, but other than that, he is really doing fine. PAST MEDICAL HISTORY 1. Prostate cancer. 2. History of skin cancer. 3. History of shingles. PAST SURGICAL HISTORY 1. TURP times two. 2. Right inguinal hernia repair. 3. Amputated left toe. 4. Surgery for right ankle fracture. FAMILY HISTORY His father, maternal grandfather, paternal grandfather, and brother all had prostate cancer. SOCIAL HISTORY Patient is single with no children. 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 He denies any abuse of tobacco or illicit drugs, but he drinks about five beers per week. CURRENT MEDICATIONS 1. Acyclovir 800 mg daily as needed p.r.n. 2. Eliquis 500 mg twice daily. ALLERGIES 1. PENICILLIN which caused hives. 2. SOY COKER and SOY DUST which cause asthma-like attack. REVIEW OF SYSTEMS CONSTITUTIONAL: No appetite or weight change. No fever or chills. Patient has occasional sweating. No recent infection. HEENT: Ears: No tinnitus or hearing problem. Nose: No nasal discharge. He has had a bleeding nose which resolved by itself. Throat: No sore throat or mouth ulcers. Eyes: No diplopia or visual changes. RESPIRATORY: No shortness of breath. No cough, expectoration, or hemoptysis. CARDIOVASCULAR: No chest pain, orthopnea, or paroxysmal nocturnal dyspnea (PND). No edema. No palpitations. GASTROINTESTINAL: He has nausea after chemo as well as constipation and occasional rectal bleeding. No vomiting. No diarrhea. No change in bowel movements. No heartburn or swallowing difficulties. No abdominal pain. No jaundice. No hematemesis or melena. GENITOURINARY: No hematuria or dysuria. MUSCULOSKELETAL: No pain in the muscles, joints, or bones. NEUROLOGICAL: No tingling or numbness in the hands or feet. No headaches or convulsions. HEMATOLOGIC/LYMPHATIC: No bleeding or easy bruising. No weakness or fatigue. No enlarged lymph nodes. SKIN: No skin rash or lumps. PSYCHIATRIC: No anxiety or depression. PHYSICAL EXAMINATION GENERAL: Looks stable. Well developed, well nourished, and in no acute distress. VITAL SIGNS: Blood pressure 118/71, pulse 67 per minute, respirations 16 per minute, temperature 98.1, pulse ox 92% on room air. HEENT: Head: Atraumatic. No sinus tenderness to palpation. Eyes: No icterus or conjunctivitis. Mouth and Throat: No oral thrush or mucositis. NECK: Supple. No cervical or supraclavicular lymphadenopathy. LUNGS: Clear to auscultation and percussion bilaterally. HEART: Regular rate and rhythm. No gallops, murmurs, clicks, or rubs. ABDOMEN: Soft and lax. No tenderness. No hepatosplenomegaly. No masses. EXTREMITIES: No cyanosis, clubbing, or edema. LYMPHATICS: No peripheral lymphadenopathy. NEUROLOGICAL: Conscious, alert, and oriented times three. No focal motor or sensory deficits. PSYCHIATRIC: Mood and affect appear normal. SKIN: No skin rash, bruise, or purpuric eruption. DIAGNOSTIC DATA CBC showed white count 5.2, hemoglobin 14.3, hematocrit 42.6, platelets 120,000. Chem panel totally normal except BUN 7 and chloride 109. CEA is 7.2, which is up from 6.4. ASSESSMENT 1. Rectal adenocarcinoma with a mass infiltrating the wall of the perirectal fat, probably T3 lesion by pelvic MRI September 26, 2017. Colonoscopy done September 18, 2017, did reveal rectal mass, and the biopsy was positive for moderately differentiated colonic adenocarcinoma. 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 Patient started neoadjuvant chemotherapy with FOLFOX regimen October 21, 2017. He developed thrombocytopenia, for which modification of the dose was done with better tolerance. Current platelet count is 120,000. Patient received 10 courses of FOLFOX, completed on the May, and the patient refused to take the two cycles of chemotherapy because of the side effects. Patient has been evaluated at [facility] for surgical resection, and there was a plan for 12 courses of chemotherapy. Because of that and because of the rise of the CEA, I advised the patient to contact his surgeon at [facility] to do the procedure earlier as he would not go for another two cycles. I am planning to see him again two weeks after his surgery with CBC, chemistry panel, and CEA. 2. Chemotherapy-induced thrombocytopenia. Current platelet count 120,000. Will continue to monitor. 3. Vitamin B12 deficiency, on vitamin B12 supplement. Initial vitamin B12 level was 131. Anti-intrinsic factor antibodies and anti-parietal cell antibodies were negative. 4. Anxiety, on Valium p.r.n. 5. History of shingles, on acyclovir 800 mg as a prophylaxis during chemotherapy. PLAN 1. Patient to contact his general surgeon for rectal surgery for his rectal cancer. 2. Patient to return in two weeks after his surgery with CBC, chem panel, and CEA. 3. Patient to contact us for any new concern or complaints. MTDD
== END 2018-06-29 ==
LOC: ONC 13:19
PROVIDERS: ATTEND Internal Medicine Hematology
DX: Z51.11 Encounter for antineoplastic chemotherapy (principal); C18.9 Malignant neoplasm of colon, unspecified; C20 Malignant neoplasm of rectum; D69.59 Other secondary thrombocytopenia; T45.1X5A Adverse effect of antineoplastic and immunosuppressive drugs, initial encounter; E53.8 Deficiency of other specified B group vitamins; F41.9 Anxiety disorder, unspecified; Z85.46 Personal history of malignant neoplasm of prostate; K59.00 Constipation, unspecified; Z92.3 Personal history of irradiation; Z86.19 Personal history of other infectious and parasitic diseases
CPT/HCPCS: 36415; 36591; 72197; 82378; 82607; 84153; 85025; 85027; 96361; 96365; 96367; 96368; 96372; 96374; 96375; 96411; 96413; 96415; 96416; A9577; G0463; J0640; J1100; J1453; J1642; J2469; J2505; J2550; J3420; J3490; J7030; J7040; J7050; J7060; J9263; 82040; 82247; 82310; 82374; 82435; 82565; 82947; 84075; 84132; 84155; 84295; 84450; 84460; 84520; 99212

== ENCOUNTER → 2018-07-07 | Outpatient (CLI) | payer MEDICARE ==
[~2018-07-07] MED LIST changes: -ALTEPLASE RECOMB 2 MG VIAL IVP PRN; -CYANOCOBALAMIN 1000MCG/ML VIAL IM ONLY ONE; -D5W IV ONE; -D5W IV PRN; -DEXAMETHASONE INJ 100 MG/10 ML IVP PRN; -DEXAMETHASONE SOD PHOS 10MG/ML IVP PRN; -DEXTROSE 5%(*) 100 ML BAG 100 ML IVPB PRN; -FAMOTIDINE(*) 20MG/50ML PREMIX 50 ML IVPB ONE; -FLUOROURACIL IV ONE; -FLUOROURACIL IV PRN; -GADOBENATE 529MG/1ML 15ML VIAL IVP ONE; +IOPAMIDOL 76% 100 ML INFUS BTL 100 ML ONE; -LEUCOVORIN CAL IV ONE; -LEUCOVORIN CAL IV PRN; -LIDOCAINE/SOD BICARB 8.4% SYR ID PRN; -NS 0.9% IV ONE; -NS 0.9% IV PRN; -NS(*) 0.9% 100 ML BAG 100 ML IVPB PRN; -NS(*) 0.9% 50 ML BAG 50 ML ONE; -OXALIPLATIN IVPB ONE; -OXALIPLATIN IVPB PRN; -PEGFILGRASTIM 6 MG/0.6 ML SYR SUBQ ONE; -PEGFILGRASTIM 6 MG/0.6 ML SYR SUBQ PRN; -PROMETHAZINE 25 MG/ML 1 ML AMP IVP ONE; -PROMETHAZINE 25 MG/ML 1 ML AMP IVP PRN; -WATER FOR INJ,STERILE 20 ML IVP PRN; -[UNRECOGNIZED DRUG - OTHER] IVPB ONE; -[UNRECOGNIZED DRUG - OTHER] IVPB PRN
--- NOTE | 2018-07-07 12:10 | RADIOLOGY IMAGING REPORT ---
FACILITY: [facility] [place] PATIENT NAME: Tyrone Justin : 1940 MR: [id number] V: [id number] EXAM DATE: ORDERING PHYSICIAN: [facility] TECHNOLOGIST: Location: [facility] [place] Patient: Tyrone Justin : 1940 Visit/Account:[id number] Date of Sevice: 07/07/2018 CT CHEST ABDOMEN PELVIS W/CON HISTORY: History of prostate and rectal cancer ADDITIONAL HISTORY: None. TECHNIQUE: Following administration of IV contrast axial images acquired through the chest abdomen a nd pelvis during the portal venous phase. Coronal and sagittal reformatting was also performed.Dose Lowering Technique One of the following dose optimization techniques was utilized in the performance of this exam: Autom ated exposure control; adjustment of the mA and/or kV according to the patient's size; or use of an i terative reconstruction technique. Specific details can be referenced in the facility's radiology C T exam operational policy. CONTRAST: 75 mL [id number] COMPARISON: CT chest seven pelvis September 23, 2017 FINDINGS: CHEST: Lungs/Pleura: There is a small band of scarring in the medial right lower lobe Mediastinum/lymph nodes: Negative. Heart/vessels: There is an implanted right-sided port the distal tip in superior vena cava. There i s aneurysmal dilatation of ascending thoracic aorta is slightly increased now measuring 4.5 cm in AP dimension as opposed to 4.2 cm previously. There are mild coronary artery calcifications Bones/soft tissues: At least moderate spondylotic changes of the thoracic spine ABDOMEN AND PELVIS: Hepatobiliary: Gallbladder is contracted some are to the prior study. Common bile duct is dilated a t 1 cm although appears similar to the prior study Spleen: Negative. Pancreas: Negative. Adrenals: Negative. Kidneys ureters and bladder : Subcentimeter hypodensities in the right kidney a represent cysts alth ough too small to characterize although appear relatively unchanged Bladder wall thickening along the dome of the bladder appears relatively unchanged Genitalia: Surgical clips are present within the prostate GI: The rectum is difficult to evaluate without rectal contrast although there does appear to be di ffuse rectal wall thickening appearing more prominent when compared to the prior study, although coul d be related to adjacent bowel contents. Extensive diverticulosis throughout the left-sided colon ag ain seen. No evidence of bowel obstruction Vessels/spaces/nodes: There mild vascular calcifications in the abdomen and pelvis. Bones/soft tissues: There extensive spondylotic changes of the lumbar spine.. There is a small left inguinal hernia containing fat Additional findings: None pertinent. IMPRESSION: Mild aneurysmal dilatation of the ascending thoracic aorta is slightly increased now measuring 4.5 cm in AP dimension as opposed to 4.2 cm previously Bladder wall thickening along the dome of the bladder appears relatively unchanged The rectum is difficult to evaluate without rectal contrast although there does appear to be diffuse rectal wall thickening appearing more prominent when compared to the prior study. This could be rela demian to adjacent bowel contents. There is no evidence of bowel obstruction Additional chronic findings as detailed above Report Dictated By: Nava Delarosa MD at 07/07/2018 11:29 AM Report E-Signed By: Nava Delarosa MD at 07/07/2018 12:05 PM WSN:[id number]
== END ==
LOC: CT 03:41
PROVIDERS: ATTEND Specialist
DX: I71.2 Thoracic aortic aneurysm, without rupture (principal); C20 Malignant neoplasm of rectum
CPT/HCPCS: 71260; 74177; Q9967

== ENCOUNTER 2018-08-15 09:58 | Outpatient (RCR) | payer MEDICARE ==
--- NOTE | 2018-07-01 18:25 | Medical Nutrition Therapy ---
Nutrition Anthropometrics Height (Inches): 73.80 Height (Calculated Centimeters: 187.4520 Weight (Pounds): 180 Hx Weight Loss: Yes (patient stated he has lost 15 lbs since August ) Nutritional Education Nutrition Education Topic: Other (adding calories and protein to promote wt gain ) Learning Readiness: Interested Teaching Methods: Discussion, Handout Response to Teaching: Verbalize understanding Teaching Recipient: Patient Nutrition Counseling: Patient requested information on increasing calories to promote wt gain pror to his surgery in a couple weeks. We reviewed his current intake and discussed how to make every bite more nutritional dense. Nutrition Monitoring & Eval Nutrition Goals: Eat 75-100% Meal, Eat 90-100% Meal Nutritional Goals Comment: frequent small meals since he feels full quickly, drink high calorie beverages - he was excited by trying whole chocolate milk. Goals is to gain 5 lbs in 2 weeks for his surgery. Nutrition Follow-Up: Fair Intake RD Patient Assessment Time: [address] Assessment Type: RD Education Patient Nutrition Acuity: 3-Mild Nutritional Comment: I encouraged Tyrone to call if he had any nutrition related questions. BETSY PICHARDO RDN, SHAYLA Jul 01, 2018 18:25
[2018-08-15 10:13] VITALS: BP 109/66
[2018-08-15 10:25] LABS: PLATELET COUNT, AUTOMATED 124 K/uL (150-450)
--- NOTE | 2018-08-15 12:30 | EL-TARAB[facility] ONCOLOGY NOTE ---
EVENT DATE: August 15, 2018 DIAGNOSES 1. Rectal adenocarcinoma. 2. History of prostate cancer. 3. Anxiety. 4. History of shingles. CHIEF COMPLAINT Patient is here today for followup of his rectal adenocarcinoma. ONCOLOGY HISTORY Patient is a 77-year-old male who had been diagnosed on August 01, 2015, with prostate cancer, Alisia score of 7, moderately to poorly differentiated with 40% involvement, stage T2c N0 M0. Initial PSA was 4.9 ng/mL status post radiation therapy. Patient recently presented with rectal bleeding, so the patient had a colonoscopy by Dr. Foy on September 18, 2017, and the patient was found to have a rectal mass. The biopsy of that mass came back positive for poorly differentiated colonic adenocarcinoma. 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 CEA done on September 23, 2017, was high at 7.8. His chem panel was totally normal. CBC was also normal. CEA was high at 7.8. Pelvic MRI done on September 26, 2017, showed a newly diagnosed rectal cancer with irregular thickening of the mid rectum 2.5 cm above the anal verge, extending for a distance of 4.4 cm with possible transmural invasion of the perirectal fat. There was no evidence of adenopathy. There was an indeterminate enhancing bone lesion in the right inferior sacrum measuring 2.7 cm. Metastasis could not be excluded. Patient started neoadjuvant chemotherapy with FOLFOX chemotherapy on October 21, 2017. Patient will complete his eighth course of neoadjuvant FOLFOX chemotherapy on March 10, 2018. Patient received 10 courses of adjuvant FOLFOX therapy, completed on the May, and the patient refused to take the last two cycles of FOLFOX. Patient had low anterior resection done on July 18, 2018 and the final diagnosis came back positive for 4.5 cm moderately differentiated (G2) adenocarcinoma invading through the muscularis propria into the perirectal soft tissue (ypT3). Margins were negative. Two out of fifteen lymph nodes came back positive for metastasis (yN1). Lymphovascular invasion was present. Neural invasion was negative. There was poor or no response, score 3, to the treatment. Microsatellite instability high was negative. BRAF, NRAS, KRAS all came back negative so the tumor was staged as stage III (ypT3 ypN1 cM0). HISTORY OF PRESENT ILLNESS Patient is here today for followup of his rectal adenocarcinoma after low anterior resection done on July 18, 2018. He has a temporary colostomy. 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 Patient is scheduled by Dr. Foy to have reversal of his colostomy on September 18, 2018. PAST MEDICAL HISTORY 1. Prostate cancer. 2. History of skin cancer. 3. History of shingles. PAST SURGICAL HISTORY 1. TURP times two. 2. Right inguinal hernia repair. 3. Amputated left toe. 4. Surgery for right ankle fracture. FAMILY HISTORY His father, maternal grandfather, paternal grandfather, and brother all had prostate cancer. SOCIAL HISTORY Patient is single with no children. 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 He denies any abuse of tobacco or illicit drugs, but he drinks about five beers per week. CURRENT MEDICATIONS 1. Acyclovir 800 mg daily as needed p.r.n. 2. Eliquis 500 mg twice daily. ALLERGIES 1. PENICILLIN which caused hives. 2. SOY COKER and SOY DUST which cause asthma-like attack. REVIEW OF SYSTEMS CONSTITUTIONAL: No appetite or weight change. No fever or chills. Patient has occasional sweating. No recent infection. HEENT: Ears: No tinnitus or hearing problem. Nose: No nasal discharge. He has had a bleeding nose which resolved by itself. Throat: No sore throat or mouth ulcers. Eyes: No diplopia or visual changes. RESPIRATORY: No shortness of breath. No cough, expectoration, or hemoptysis. CARDIOVASCULAR: No chest pain, orthopnea, or paroxysmal nocturnal dyspnea (PND). No edema. No palpitations. GASTROINTESTINAL: He has colostomy currently. GENITOURINARY: No hematuria or dysuria. MUSCULOSKELETAL: No pain in the muscles, joints, or bones. NEUROLOGICAL: He has residual tingling and numbness in his hands and feet. HEMATOLOGIC/LYMPHATIC: No bleeding or easy bruising. No weakness or fatigue. No enlarged lymph nodes. SKIN: No skin rash or lumps. PSYCHIATRIC: No anxiety or depression. PHYSICAL EXAMINATION GENERAL: Looks stable. Well developed, well nourished, and in no acute distress. VITAL SIGNS: Blood pressure 103/66, pulse 75 per minute, respirations 18 per minute, temperature 98, pulse ox 94% on room air. HEENT: Head: Atraumatic. No sinus tenderness to palpation. Eyes: No icterus or conjunctivitis. Mouth and Throat: No oral thrush or mucositis. NECK: Supple. No cervical or supraclavicular lymphadenopathy. LUNGS: Clear to auscultation and percussion bilaterally. HEART: Regular rate and rhythm. No gallops, murmurs, clicks, or rubs. ABDOMEN: Soft and lax. Colostomy is noted. There was no evidence of infection around it. The scar from recent surgery also is noted and healing very well. EXTREMITIES: No cyanosis, clubbing, or edema. LYMPHATICS: No peripheral lymphadenopathy. NEUROLOGICAL: Conscious, alert, and oriented times three. No focal motor or sensory deficits. PSYCHIATRIC: Mood and affect appear normal. SKIN: No skin rash, bruise, or purpuric eruption. DIAGNOSTIC DATA CBC showed white count 3.3, hemoglobin 13.4, hematocrit 39.1 platelets 124,000. Chem panel totally normal except chloride 109, carbon dioxide 20, blood sugar 115 and AST 38. Other parameters are normal. CEA is pending. ASSESSMENT 1. Rectal adenocarcinoma with a mass infiltrating the wall of the perirectal fat, probably T3 lesion by pelvic MRI on September 26, 2017. Colonoscopy done September 18, 2017, did reveal rectal mass and the biopsy was positive for moderately differentiated colonic adenocarcinoma. 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 Patient received neoadjuvant chemotherapy with FOLFOX regimen between October 21, 2017, completed on June 09, 2018. He developed thrombocytopenia, for which modification of the dose was done. Patient received ten courses of FOLFOX and he was not able to complete the 12 courses. Patient has been evaluated [facility] for surgical resection, which was done on July 18, 2018 and pathology came back positive for 4.5 cm infiltrating moderately differentiated (G2) adenocarcinoma invading through the muscularis propria into the perirectal soft tissue (ypT3). Margins were negative. Two out of fifteen lymph nodes came back positive for metastasis (ypN1). Lymphovascular invasion was positive but perineural invasion was negative and there was no or poor response to treatment, score 3. Microsatellite instability high was negative. KRAS, BRAF, NRAS mutations all came back negative. I spoke to the patient today regarding further management and patient is not planning to receive any chemotherapy at the current time so we will start surveillance every three months with CBC, chem panel and CEA. Patient is scheduled to have reversal of his colostomy on September 18, 2018. Patient is aware that given the KRAS, NRAS, BRAF mutations are negative so he will be ineligible in the future if he has recurrent system disease with Erbitux in addition to chemotherapy. Because he showed poor response to FOLFOX, if the patient will have recurrence in the future, I am planning to treat him with FOLFIRI plus Erbitux. 2. Chemotherapy-induced thrombocytopenia. Current platelet count is 124,000. Will continue to monitor. 3. Vitamin B12 deficiency. Patient is receiving vitamin B12 supplement. His initial vitamin B12 level was 131 but the anti-intrinsic factor antibodies and anti-parietal cell antibodies were negative. 4. Anxiety, on Valium p.r.n. 5. History of shingles, on acyclovir 800 mg as a prophylaxis during chemotherapy. PLAN 1. Continue followup. 2. 2. Patient to return in three months with CBC, chem panel and CEA. 3. Patient to contact us for any new concern or complaints. MTDD
[2018-09-11] MEDS ORDERED: ACYC-50 PO (13:36)
[2018-09-11] MEDS ORDERED: DIA5 PO ×2 (13:38)
[2018-09-21] MEDS ORDERED: PER PO (09:58)
== END 2018-11-04 ==
LOC: SPU 09:58
PROVIDERS: ATTEND Internal Medicine Hematology
DX: C20 Malignant neoplasm of rectum (principal); D69.59 Other secondary thrombocytopenia; E53.8 Deficiency of other specified B group vitamins; F41.9 Anxiety disorder, unspecified; G62.9 Polyneuropathy, unspecified; Z79.01 Long term (current) use of anticoagulants; Z92.21 Personal history of antineoplastic chemotherapy
CPT/HCPCS: 36415; 81001; 82378; 83036; 85025; 87088; G0463; 82040; 82247; 82310; 82374; 82435; 82565; 82947; 84075; 84132; 84155; 84295; 84450; 84460; 84520; 99212

== ENCOUNTER → 2018-08-15 | Outpatient (REF) | payer MEDICARE ==
[~2018-08-15] MED LIST changes: +ENOX40DI8 SQ; -IOPAMIDOL 76% 100 ML INFUS BTL 100 ML ONE
== END ==
LOC: ZZSENDIN 12:14
PROVIDERS: ATTEND Nurse Practitioner Family
DX: R73.01 Impaired fasting glucose (principal)
CPT/HCPCS: 83036

== ENCOUNTER → 2018-08-15 | Outpatient (REF) | payer MEDICARE | LOC: ZZSENDIN 10:20 | DX: R31.1 Benign essential microscopic hematuria (principal) | CPT/HCPCS: 81001; 87088 ==

== ENCOUNTER → 2018-09-01 | Outpatient (CLI) | payer MEDICARE ==
[~2018-09-01] MED LIST changes: +BARIUM SULFATE 1,900 ML ORAL.SUSP ONE; +BARIUM SULFATE 450 ML SUSP ONE
--- NOTE | 2018-09-01 15:51 | RADIOLOGY IMAGING REPORT ---
FACILITY: [facility] PATIENT NAME: Tyrone Justin : 1940 MR: [id number] V: [id number] EXAM DATE: ORDERING PHYSICIAN: MARCELO SALCEDO TECHNOLOGIST: [place] [facility] [place]one Justin : 1940 Visit/Account:[id number] Date of Sevice: 09/01/2018 Exam type: BARIUM ENEMA History: Check anastomosis Comparison: None. Findings: Barium was instilled into the colon via the rectum the usual retrograde fashion. Barium did pass rom chad through the and two side anastomosis of the sigmoid colon with the rectum. There is no evidence of a stricture or extraluminal extravasation. Small amount of barium did enter a blind pouch again w ithout evidence of extravasation. Examination was done as a low-pressure exam there for the entire c olon was not well-distended. Scattered diverticula were present.. The fluoroscopy dose area product was 1266.31 micro-Zelaya per meter squared IMPRESSION: 1. The rectosigmoid anastomosis appears widely patent without evidence of extraluminal extravasation or stricture Report Dictated By: Nava Delaroas MD at 09/01/2018 3:43 PM Report E-Signed By: Nava Delarosa MD at 09/01/2018 3:46 PM WSN:[id number]
== END ==
LOC: MRI 00:58
PROVIDERS: ATTEND Surgery
DX: C20 Malignant neoplasm of rectum (principal)
CPT/HCPCS: 74270

== ENCOUNTER → 2018-09-10 | Outpatient (CLI) | payer MEDICARE ==
[~2018-09-10] MED LIST changes: +ACYC-50 PO; -BARIUM SULFATE 1,900 ML ORAL.SUSP ONE; -BARIUM SULFATE 450 ML SUSP ONE; +GADOBENATE 529MG/1ML 15ML VIAL IVP ONE; +NS(*) 0.9% 50 ML BAG 50 ML ONE
--- NOTE | 2018-09-10 16:48 | RADIOLOGY IMAGING REPORT ---
FACILITY: [facility] PATIENT NAME: Tyrone Justin : 1940 MR: [id number] V: [id number] EXAM DATE: ORDERING PHYSICIAN: MARCELO SALCEDO TECHNOLOGIST: Location: [facility] [place] Patient: Tyrone Justin : 1940 Visit/Account:[id number] Date of Sevice: 09/10/2018 EXAMINATION: MRI pelvis without MRI pelvis with IV contrast 09/10/2018 7:58 AM HISTORY: See Dx TECHNIQUE: Multiplanar multisequence imaging of the pelvis was done before and after intravenous cont rast. Contrast: 15 mL of IV MultiHance COMPARISON STUDIES: DGE 09/01/2018. MR 04/07/2018 FINDINGS: Bowel / mesenteries: Status post resection of the rectal tumor with a side to end anastomosis of the sigmoid colon with the residual anorectal stump. The patient has a right lower quadrant diverting ost lisa, and the colon is decompressed. No residual or recurrent local soft tissue mass is evident. There is some presacral stranding but no concerning fluid collection to suggest that there is persistent l eak or any abscess around the pelvic bowel anastomotic site. No acute bowel finding otherwise. Bladder and prostate: Previous TURP. Bones: Unremarkable marrow signal without evidence of metastasis. Degenerative changes at the lumbosa cral junction Vascular structures: negative. Other: none significant. LN assessment: No pelvic adenopathy. IMPRESSION: 1. Postsurgical changes from rectal resection with side to end anastomosis of the colon with the resi dual anorectal stump which is currently decompressed by a right lower quadrant ostomy. 2. Presacral stranding is probably posttreatment change. No postoperative complication or residual/re current mass evident. Report Dictated By: Sebastian Flores MD at 09/10/2018 4:27 PM Report E-Signed By: Sebastian Flores MD at 09/10/2018 4:44 PM WSN:[id number]
== END ==
LOC: MRI 09-05 14:34
PROVIDERS: ATTEND Surgery
DX: Z93.3 Colostomy status (principal)
CPT/HCPCS: 72197; A9577; J7050

== ENCOUNTER 2018-09-18 02:30 | Inpatient (IN) | payer MEDICARE ==
[2018-09-18] VITALS (18 sets, daily range): BP systolic 99–136; BP diastolic 48–81
[~2018-09-18] VITALS: Ht 190.5 cm; Wt 75.3 kg
[~2018-09-18 02:30] MED LIST changes: -GADOBENATE 529MG/1ML 15ML VIAL IVP ONE; -NS(*) 0.9% 50 ML BAG 50 ML ONE
[2018-09-18] MEDS ORDERED: fentaNYL CITR 250 MCG/5 ML AMP ONE (10:14)
[2018-09-18] MEDS ORDERED: PROPOFOL EMUL(*) 10MG/ML 20 ML 20 ML ONE (10:17)
[2018-09-18] MEDS ORDERED: LIDOCAINE 2% IV 100 MG/5ML SYR ONE (10:17)
[2018-09-18] MEDS ORDERED: NORMOSOL R SOLN(*) 1000 ML BAG 1,000 ML IV PRN (11:00)
[2018-09-18] MEDS ORDERED: LIDOCAINE/SOD BICARB 8.4% SYR ID ONE (11:00)
[2018-09-18] MEDS ORDERED: FAMOTIDINE 20 MG TAB PO ONE (11:00)
[2018-09-18] MEDS ORDERED: MIDAZOLAM 2 MG/2 ML VIAL IVP PRN (11:00)
[2018-09-18] MEDS ORDERED: metroNIDAZOLE* 500MG/100ML BAG 100 ML IVPB ONE (12:20)
[2018-09-18] MEDS ORDERED: LEVOFLOXACIN/D5W*500 MG/100 ML 100 ML IVPB ONE (12:20)
[2018-09-18] MEDS ORDERED: ROPIVACAINE 0.5% 20 ML VIAL ONE ×2 (12:30→13:58)
[2018-09-18] MEDS ORDERED: DEXAMETHASONE SOD 4 MG/ML VIAL ONE (13:01)
[2018-09-18] MEDS ORDERED: ONDANSETRON 4 MG/2 ML VIAL ONE (13:02)
[2018-09-18] MEDS ORDERED: KETAMINE HCL 200 MG/20 ML MDV ONE ×2 (13:09→14:11)
--- NOTE | 2018-09-18 13:17 | NUR ---
1230-PT PUTS TECHNICAL MGR LIGHT AND REPORTS REDNESS TO L ARM WITH SOME ITCHING ABOVE IV SITE. LEVAQUIN TURNED OFF AND IV BOLUS STARTED AT THIS TIME. DR SALCEDO AND DR SINGH INFORMED. FLAGYL TO BE STARTED PER DR FARLEY ORDERS. PT REPORTS RELIEF FROM ITCHING WITHIN 10 MINUTES. REDNESS OVER VEIN TRACT REMAINS. DR SINGH AWARE.
[2018-09-18] MEDS ORDERED: fentaNYL CITR 100 MCG/2 ML AMP ONE ×4 (14:36→17:31)
[2018-09-18] MEDS ORDERED: SUGAMMADEX SOD 200 MG/2 ML SDV ONE (15:14)
[2018-09-18] MEDS ORDERED: FLUSH 10 ML SYR IVP PRN (15:50)
--- NOTE | 2018-09-18 16:19 | Post Operative Progress Note ---
Post Operative Progress Note Date: Sep 18, 2018 Time: 15:51 Surgeon: Danii Dictation number: [id number] Anesthesia: GETA by Dr. Rai Pre-Op Diagnosis: H/O rectal cancer S/P LAR with ileostomy Post-Op Diagnosis: ASHOK Findings: None Procedure(s): 1) colonoscopy 2) power port removal 3) Ileostomy takedown Specimen Removed:(May be N/A): Ileostomy Complications: None Fluids: See anesthesia record Estimated Blood Loss: Minimal Date OP Note Dictated: Sep 18, 2018 Time OP Note Dictated: 15:53 MARCELO SALCEDO MD Sep 18, 2018 16:19
--- NOTE | 2018-09-18 17:04 | OPERATIVE REPORT 1 ---
EVENT DATE: September 18, 2018 SURGEON: Robert Baker MD ANESTHESIOLOGIST: Efrain Rai MD ANESTHESIA: General. PREOPERATIVE DIAGNOSIS Hematuria, etiology ? 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 PROCEDURE PERFORMED Cystourethroscopy. DESCRIPTION OF PROCEDURE Under general anesthetic, the patient was prepped and draped in the extended lithotomy position. The 21 panendoscope admitted through the urethra into the bladder. Urine was obtained for urinalysis and culture and sensitivity. The urethra was normal. Prostate showed satisfactory resection and was wide open. There was a mild bladder neck contracture. It calibrated approximately 22-Spanish. There was diffuse inflammation of the prostatic urethra. The bladder showed 4+ trabeculation. Trigone and ureteral orifices were normal. No bloody efflux from either orifice. The bladder showed diffuse mild inflammation. The bladder was filled under gravity flow, and it is measured a total of approximately 400 mL. On drainage of the bladder, there was terminal gross hematuria. On reinspection of the bladder, there were diffuse glomerulations. The bladder was drained. The scope was withdrawn. The #16 urethral Sam was placed without any difficulty. The balloon was filled with 15 mL of solution. The catheter irrigated easily with saline irrigation. The drainage was blood tinged. It appeared to be draining satisfactorily. [facility]
--- NOTE | 2018-09-18 17:41 | OPERATIVE REPORT 1 ---
EVENT DATE: September 18, 2018 SURGEON: Mitchell Foy MD ANESTHESIOLOGIST: Efrain Rai MD ANESTHESIA: General endotracheal anesthesia. PREOPERATIVE DIAGNOSES 1. History of rectal cancer. 2. Status post lower anterior resection with a diverting loop ileostomy. POSTOPERATIVE DIAGNOSES 1. History of rectal cancer. 2. Status post lower anterior resection with a diverting loop ileostomy. PROCEDURES PERFORMED 1. Colonoscopy. 2. PowerPort removal. 3. Ileostomy takedown. COMPLICATIONS None. CONDITION Stable. BLOOD LOSS Minimal. SPECIMENS Ileostomy. INDICATIONS This is a 78-year-old gentleman who last fall was found to have a rectal cancer and underwent neoadjuvant therapy, followed by subsequent open low anterior resection down at the [facility] and who has recovered well from that surgery. He is requesting to have his diverting loop ileostomy reversed. His surgery was eight weeks ago. He also would like to have the PowerPort removed. I have consented him for colonoscopy to make sure there is nothing growing in his colon we need to be concerned about, and if this is negative, then we would removed his port and reverse his ileostomy. DESCRIPTION OF PROCEDURE The patient was brought to the operating room and placed upon the operating table. General endotracheal anesthesia was administered. His legs were placed in the [facility], and Dr. Baker completed a cystoscopy. When he was completed, I proceeded with my portion of the procedure. I then obtained a colonoscope and tested it to make sure it was completely functional. It was lubricated and inserted into his rectum through his anus. I also performed digital rectal exam prior to inserting the colonoscope. I advanced the scope all the way through the ascending colon, but it was taking quite a bit of pressure. He still has some residual barium left in his colon from the barium enema that I ordered a couple of weeks ago in order to assess the anastomosis prior to reversing the ileostomy. Because of this, there was a lot of resistance pushing the scope through, so I did not try to get all the way to the cecum for fear of traumatizing his colon and the anastomosis. I did see all the way to the ascending colon. I slowly withdrew the scope and looked at all mucosal surfaces for any abnormalities, and I did not see any. There was some residual mucus and barium and a small amount of stool in the colon, so I would not consider this an excellent screening or surveillance study, but there were no obvious tumors or other abnormalities. I withdrew the scope from the rectum, and then he was taken out of the [facility] and placed supine on the table. His right chest was prepped and draped in a sterile fashion. Another timeout was completed, and I injected the skin over the previous port incision with 0.5% ropivacaine plain. I made an incision right through the previous scar. I dissected through the dermis and subcutaneous fat and all the way down into where I could identify the port. I dissected the capsule away from the port, cut the sutures in the corners, and then pulled the catheter and port out of the wound in one piece. I then stripped as much of the capsule out as I could and then closed the pocket with a single 3-0 Vicryl suture. The skin was closed with 3-0 Vicryl interrupted deep dermal sutures and 4-0 Monocryl running subcuticular sutures. Skin was cleaned and dried, and Steri-Strips were applied, followed by a sterile surgical dressing. I then pulled out the stoma appliance and sutured the ileostomy shut with 2-0 silk [id number] sutures. His abdomen was then prepped and draped in a sterile fashion, and then I anesthetized the skin around the ileostomy and made an elliptical incision around the ileotomy in a transverse fashion. I then dissected through the dermis, subcutaneous fat, and continued my dissection completely around the loop ileostomy structures through the fascia and into the abdominal cavity. Once the bowel was completely freed up from the abdominal wall, I found healthy-appearing small bowel just adjacent to the ileostomy that had not been beat up by the dissection. I made holes in the mesentery, divided the bowel with the TAMARA stapler with a blue load on both sides, and then clamped in two places the mesentery, divided the mesentery with electrocautery, passed the specimen off the field, and then ligated the mesenteric vessels with 2-0 silk free ties. I then laid the bowel [id number] and created enterotomies in adjacent pieces of bowel about a centimeter from the staple lines. I then placed the Endo TAMARA stapler 75 mm with a blue load in through the enterotomies and then stapled them together after verifying nothing else was in between the staple line. I then removed the stapler. There was a conjoined enterotomy that I then closed with a running 4-0 Monocryl suture and then oversewed the suture and staple line with interrupted 3-0 Vicryl Lembert type sutures. I felt the aperture in the lumen, and it was wide open. It looked nice with no tension, and it was well perfused. I then dropped this back into the abdominal cavity and then closed the rectus fascia with a running 0 Prolene suture. I irrigated and dried the wound and then closed the skin loosely with a couple of ophelia. I then placed 1/2-inch Gillespie drains into the holes and sutured them to the skin to keep the holes open to allow the wound to drain and heal without infection. I then cleaned and dried the skin and placed dry gauze over the ileostomy takedown site and then taped this into place. The patient was awakened, extubated in the operating room, and transported to the recovery room in stable condition having tolerated the procedure without any apparent problems. MELVIN
[2018-09-18] MEDS: NS(*) 0.9% 1000 ML BAG 1,000 ML IV PRN (18:22)
[2018-09-18] MEDS: MORPHINE 2 MG/ML SYR IVP PRN ×2 (18:24→21:24)
[2018-09-18] MEDS: ONDANSETRON 4 MG/2 ML VIAL IVP PRN (21:25)
[2018-09-19] VITALS (14 sets, daily range): BP systolic 82–107; BP diastolic 36–62; Ht 190.5 cm; Wt 75.3 kg
[2018-09-19] MEDS: MORPHINE 2 MG/ML SYR IVP PRN ×5 (00:19→10:25)
[2018-09-19] MEDS: ONDANSETRON 4 MG/2 ML VIAL IVP PRN ×2 (02:06→07:40)
[2018-09-19] MEDS: NS(*) 0.9% 1000 ML BAG 1,000 ML IV PRN ×3 (02:06→17:19)
[2018-09-19 05:53] LABS: PLATELET COUNT, AUTOMATED 127 K/uL (150-450)
--- NOTE | 2018-09-19 08:24 | General Surgery Progress Note ---
Subjective Progress Notes Subjective Has feelings of nausea but no emesis. He thinks it's because his stomach is empty. He had N/V after his LAR 2 months ago as well. No flatus or BM yet. Pain at stoma takedown site when using his muscles. Physical Exam Vital Signs Date Time Temp Pulse Resp B/P (MAP) Pulse Ox O2 Delivery O2 Flow Rate FiO2 09/19/18 07:23 91 Room Air 09/19/18 07:23 97.6 55 18 95/62 (73) 1.0 Intake and Output 09/19/18 07:00 Intake Total 4950 ml Output Total 1300 ml Balance 3650 ml Intake Oral 0 ml IV Total 3300 ml Other 1650 ml Output Urine Total 1250 ml Estimated Blood Loss 50 ml # Voids 2 General Appearance: Alert, Awake, No Acute Distress, Afebrile GI: Other (Soft, appropriate postop TTP, dressings C/D/I.) Extremities: Warm, Perfused Result Diagram: 09/19/1852509/19/18525 Assessment and Plan Problems: (1) Ileostomy in place Status: Resolved Assessment & Plan: 09/19/18: POD#1 s/p Power port removal, colonoscopy, and ileostomy reversal. Doing well. Has some nausea but he reports this has been normal for him postoperatively. Will try ice chips, sips of water, 2 popsickles per day, gum, and hard candy today. Ambulate, OOB to chair, IS, aggressive pulmonary hygiene, lovenox, and PPI. (2) History of low anterior resection of rectum Status: Chronic (3) Rectal cancer Status: Resolved Condition Stable. Time Spent: < 30 min Exam Sepsis Risk: No Definite Risk MARCELO SALCEDO MD Sep 19, 2018 08:24
[2018-09-19] MEDS: PANTOPRAZOLE SOD 40 MG IV VIAL IVP SCH (10:18)
[2018-09-19] MEDS: ENOXAPARIN 40 MG/0.4ML SYR SC SCH (10:19)
[2018-09-19] MEDS: ACETAMINOPHEN(*)1000 MG/100 ML 100 ML IVPB SCH ×3 (10:31→20:35)
[2018-09-19] MEDS: KETOROLAC 15 MG/ML VIAL IVP SCH ×3 (12:23→23:33)
--- NOTE | 2018-09-19 14:54 | Medical Nutrition Therapy ---
Nutrition Anthropometrics Height (Inches): 75.00 Height (Calculated Centimeters: 190.430175 Weight (Pounds): 166 Weight (Calculated Kilograms): 75.296 BMI: 20.7 César Nutrition Score: Very Poor César Nutrition Risk Score: 15 Dietary Referral Nutrition Risk Factors: Nutrition Risk Comment: Physical Findings Physical Appearance: Skin Appearance Skin Appearance: Edema Edema Location Modifier: Edema Location: Type of Edema: Degree of Edema: Gastrointestinal Symptoms GI Symtoms: Tube Present: Bowel Sounds: Recent Bowel Pattern: Stool Characteristics: Nutritional Diagnosis Nutritional Risk Acuity 2: Head/Neck/GI Cancer Past Medical History: Hx of rectal cancer. Nutritional Acuity: 2-Moderate Nutrition Diagnosis: Increased Nutrient Needs Nutrition Etiology: Physiological Causes Nutrition Problem/Etiology/Sym: Increased nutrient needs related to physiological causes as evidenced by hx of rectal cancer. Energy Requirement: 2056 (MSJ, 1.1 TEF, 1.2 AF) Protein Requirement: 75 (1g of AA/kg of BW) Fluid Requirement: 2056 (1ml/kcal) Diet Type: NPO/Ice Chips Only Nutrition Intervention: Incr diet as tolerated Diet Comment To RSA: ALLERGIC TO SOYBEAN Nutrition Monitoring & Eval RD Patient Assessment Time: [address] Assessment Type: RD Assessment Patient Nutrition Acuity: 2-Moderate Follow Up Date: Sep 22, 2018 Nutritional Comment: 09/19: Pt admitted for colonoscopy, power port removal, and ileostomy takedown. Pt has hx of rectal cancer. Pt is feeling nauseous after the procedure. Pt has decreased CO2 (21) and elevated chloride (109) levels. Pt is allergic to soybeans. Pt is currently NPO/ice chips only. Continue to monitor. -LAUREEN BAILON Sep 19, 2018 09:07
[2018-09-19] MEDS ORDERED: IV BOLUS 500 ML IVSOL IV ONE (17:05)
[2018-09-20] VITALS (9 sets, daily range): BP systolic 90–119; BP diastolic 45–72
[2018-09-20] MEDS: NS(*) 0.9% 1000 ML BAG 1,000 ML IV PRN (02:01)
[2018-09-20] MEDS: ACETAMINOPHEN(*)1000 MG/100 ML 100 ML IVPB SCH ×2 (02:24→09:13)
[2018-09-20] MEDS: KETOROLAC 15 MG/ML VIAL IVP SCH (05:32)
[2018-09-20] MEDS: PANTOPRAZOLE SOD 40 MG IV VIAL IVP SCH (08:57)
[2018-09-20] MEDS: ENOXAPARIN 40 MG/0.4ML SYR SC SCH (08:57)
[2018-09-20] MEDS ORDERED: IBUPROFEN 200 MG TAB PO PRN (10:00)
[2018-09-20] MEDS ORDERED: ACETAMINOPHEN 325 MG TAB PO PRN (10:00)
--- NOTE | 2018-09-20 10:04 | General Surgery Progress Note ---
Subjective Progress Notes Subjective No complaints this morning. Pain is decreasing. Passing flatus and stool. Physical Exam Vital Signs Date Time Temp Pulse Resp B/P (MAP) Pulse Ox O2 Delivery O2 Flow Rate FiO2 09/20/18 08:55 Nasal Cannula 09/20/18 06:54 97.9 57 16 108/62 (77) 95 1.0 Intake and Output 09/20/18 07:00 Intake Total 3758 ml Output Total 800 ml Balance 2958 ml Intake Oral 400 ml IV Total 3358 ml Output Urine Total 800 ml General Appearance: Alert, Awake, No Acute Distress, Afebrile GI: Other (Soft, appropriate postop TTP, ileostomy takedown wound is clean with serous drainage. Port removal incision looks good without erythema or drainage.) Extremities: Warm, Perfused Result Diagram: 09/19/1852509/19/18525 Assessment and Plan Problems: (1) Ileostomy in place Status: Resolved Assessment & Plan: 09/19/18: POD#1 s/p Power port removal, colonoscopy, and ileostomy reversal. Doing well. Has some nausea but he reports this has been normal for him postoperatively. Will try ice chips, sips of water, 2 popsickles per day, gum, and hard candy today. Ambulate, OOB to chair, IS, aggressive pulmonary hygiene, lovenox, and PPI. 09/21/18: POD#2. Doing well. GI activity returning with several BMs. Will advance diet as tolerated to regular diet. Will stop IV fluids. Ambulate, OOB to chair, IS, aggressive pulmonary hygiene, lovenox, PPI, etc. Wound care to R LQ ileostomy takedown wound. Possibly home tomorrow. (2) History of low anterior resection of rectum Status: Chronic (3) Rectal cancer Status: Resolved Condition Stable. Time Spent: < 30 min Exam Sepsis Risk: No Definite Risk MARCELO SALCEDO MD Sep 20, 2018 10:04
[2018-09-20] MEDS: ONDANSETRON 4 MG/2 ML VIAL IVP PRN (20:46)
[2018-09-21 04:28] VITALS: BP 114/66
[2018-09-21 07:21] VITALS: BP 125/73
[2018-09-21] MEDS: ENOXAPARIN 40 MG/0.4ML SYR SC SCH (08:28)
[2018-09-21] MEDS ORDERED: PANTOPRAZOLE SOD 40 MG TABEC PO SCH (09:00)
[2018-09-21] MEDS ORDERED: PER PO (09:58)
--- NOTE | 2018-09-21 10:02 | Short(Outpt) Discharge Summary ---
Discharge Summary Reason for Hosp/Final Diag: (1) Ileostomy in place Status: Resolved Hospital Course & Plan: 09/19/18: POD#1 s/p Power port removal, colonoscopy, and ileostomy reversal. Doing well. Has some nausea but he reports this has been normal for him postoperatively. Will try ice chips, sips of water, 2 popsickles per day, gum, and hard candy today. Ambulate, OOB to chair, IS, aggressive pulmonary hygiene, lovenox, and PPI. 09/20/18: POD#2. Doing well. GI activity returning with several BMs. Will advance diet as tolerated to regular diet. Will stop IV fluids. Ambulate, OOB to chair, IS, aggressive pulmonary hygiene, lovenox, PPI, etc. Wound care to RLQ ileostomy takedown wound. Possibly home tomorrow. 09/21/18: POD#3. Doing well. Tolerating diet. Good GI function. D/C to home today. (2) History of low anterior resection of rectum Status: Chronic (3) Rectal cancer Status: Resolved Departure Discharge to: Home, Self Care Discharge Instructions Home Meds Active Scripts Oxycodone/Acetaminophen (OXYCODONE/ACETAMINOPHEN 5MG/325 MG) 5 Mg/325 Mg Tab, 1 TAB PO Q4H PRN for PAIN, #20 TAB 0 Refills Prov:MARCELO SALCEDO MD 09/21/18 Reported Medications Diazepam (VALIUM) 5 Mg Tablet, 2.5 MG PO PRN, #5 TAB 09/11/18 Acetaminophen (TYLENOL) 325 Mg Tablet, 325 MG PO PRN PRN for PAIN, TAB 10/02/17 Discontinued Reported Medications Acyclovir (ACYCLOVIR) 400 Mg Tablet, 400 MG PO PRN, TAB 09/11/18 Follow up Referrals: General Surgery - 09/29/18 @ Surgery, General with MARCELO SALCEDO MD You have a follow up appointment scheduled with Dr. Salcedo on 09/29/18, at 2:00pm Diet: Regular Activity: No Heavy Lifting Special Instructions: You may leave the incision on your right upper chest open to air but leave the steristrips in place until they fall off on their own. Change the dressing on your right lower abdominal wound at lease once every day and you can time this with your showers, remove the dressing before your shower, shower without anything on the wound, then place a new clean and dry dressing over the wound after showering. Avoid any activity that involves straining or lifting more than 10 pounds for 6 weeks after surgery. MARCELO SALCEDO MD Sep 21, 2018 10:02
== END 2018-09-21 11:00 | disposition home or self-care (01) | DRG 331 ==
LOC: OR 02:30 → MED 17:15
PROVIDERS: ADMIT Surgery; ATTEND Surgery
PROC: 0DBB0ZZ Excision of Ileum, Open Approach (ICD-10-PCS; principal; 2018-09-18 12:55)
PROC: 0JPT3WZ Removal of Totally Implantable Vascular Access Device from Trunk Subcutaneous Tissue and Fascia, Percutaneous Approach (ICD-10-PCS; 2018-09-18 12:55)
PROC: 0TJB8ZZ Inspection of Bladder, Via Natural or Artificial Opening Endoscopic (ICD-10-PCS; 2018-09-18 12:55)
DX: Z43.2 Encounter for attention to ileostomy (principal); Z85.038 Personal history of other malignant neoplasm of large intestine; Z85.46 Personal history of malignant neoplasm of prostate; Z87.891 Personal history of nicotine dependence; Z90.49 Acquired absence of other specified parts of digestive tract
CPT/HCPCS: 36415; 81001; 82310; 82374; 82435; 82565; 82947; 84132; 84295; 84520; 85025; 87088; 88305; C9113; J0131; J1100; J1650; J1885; J1956; J2001; J2270; J2405; J2704; J2795; J3010; J3490; J7030

== ENCOUNTER → 2018-10-18 | Outpatient (REF) | payer MEDICARE ==
[2018-09-19 14:53] VITALS: BMI 20.8
[~2018-10-18] MED LIST changes: +PER PO
== END ==
LOC: ZZSENDIN 09:52
DX: N30.01 Acute cystitis with hematuria (principal)
CPT/HCPCS: 81001; 87088

== ENCOUNTER 2018-11-06 16:00 | Outpatient (RCR) | payer MEDICARE ==
[2018-08-20 08:31] VITALS: BP 118/67
--- NOTE | 2018-08-20 10:38 | ONCOLOGY FOLLOW UP NOTE ---
EVENT DATE: August 20, 2018 REASON FOR FOLLOWUP 1. Rectal adenocarcinoma. 2. History of prostate cancer. INTERIM HISTORY Tyrone returns to clinic for a followup visit today. Since we visited last, he has continued to follow up with Dr. Christianson. He has completed neoadjuvant chemotherapy and he has undergone surgical resection of his rectal adenocarcinoma with Dr. Hernandez at the [facility]. Surgical pathology was revealing for a moderately differentiated adenocarcinoma (ypT3) with negative margins and 2 out of 15 lymph nodes positive for adenocarcinoma (yN1). Lymphovascular invasion was noted but perineural invasion was not. Unfortunately, there was noted to be poor or no response to neoadjuvant therapy. Microsatellite instability testing revealed stability. BRAF, NRAS and KRAS mutations were all negative. Tyrone today reports that he is frustrated with his inability to put on weight. He has lost about 15 pounds through treatment so far. He does not have much of an appetite but he does feel that he is forcing himself to eat. Nausea has not been problematic. He denies fever. He denies abdominal pain. He has had no recent changes in urinary habits. He plans to have his ostomy reversed soon as well as undergo repeat colonoscopy and cystoscopy. He also plans to have his port removed. He reports that his biggest issue ongoing, in addition to the above, has been ongoing anxiety. This has not been controlled over the years and he has tried different medications that have not brought effect. He has also visited with counselors and he has not had much luck in this regard either. He currently takes 5 mg of Valium p.r.n. for anxiety but he does not note that it helps a lot. REVIEW OF SYSTEMS Otherwise negative and all systems were reviewed. PAST MEDICAL HISTORY 1. Prostate cancer, as above. 2. Reported history of skin cancer. 3. Reported history of shingles. PAST SURGICAL HISTORY 1. Status post TURP times two. 2. Status post repair of right inguinal hernia. 3. Status post amputation of toe of left foot. 4. Status post right ankle surgery for fracture. FAMILY HISTORY There is a history of prostate cancer in his father, maternal grandfather, paternal grandfather, and brother. 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 He is single. He has no history of alcohol abuse, but he does drink about five beers per week. He does not smoke, and there is no history of illicit drug use. CURRENT MEDICATIONS Reviewed per clinic record. VITAL SIGNS Temperature is 97.0, blood pressure 118/67, heart rate is 78, respirations 16, oxygen saturation is 92% on room air. Weight is 79.7 kg. PHYSICAL EXAMINATION GENERAL: Patient is alert and oriented x3, in no apparent distress, sitting in the exam room chair. He is thin but appears fairly healthy. He appears somewhat anxious but is interactive and pleasant. HEENT: Anicteric sclerae. NEUROLOGIC: Grossly nonfocal and his gait is normal. EXTREMITIES: No edema, clubbing, or cyanosis. There is no erythema or tenderness to palpation. LABORATORY STUDIES Reviewed per the [facility] record. PATHOLOGY Please see oncology history. ASSESSMENT AND RECOMMENDATIONS Stage III rectal adenocarcinoma, status post neoadjuvant therapy and surgical resection. I had a good visit with Tyrone today. We spent a good deal of time reviewing his oncology history as well as his recent surgery. He does plan to have reversal of his ostomy in the next month or so as well as reported cystoscopy and removal of port. We also spent time discussing his surgical pathology which, unfortunately, did not show significant response to neoadjuvant therapy. He had many questions in this regard. We discussed what this means prognostically and that he will need to be under close surveillance as has already been recommended by Dr. Christianson. We discussed strategy for surveillance and that the plan to have him return in three months for repeat labs is certainly reasonable. We discussed the merits of having him go for an annual CT scan, which would also be reasonable. We discussed the risk of future development of metastatic disease. The vast majority of our visit today, however, was spent discussing his ongoing issues with anxiety. I have recommended strongly that he will work hard to find a counselor in the community that he trusts. He had questions about the use of Valium and whether he could double his dose. I have encouraged him to talk to his primary care provider as well as Dr. Christianson about this. Another option would be to have him seen in the [facility] at the [facility] in [facility] to discuss other ways to try to control his anxiety because medication has not been particularly effective. Tyrone was appreciative for information provided today. I have again recommended that he continue his follow up care with Dr Jesica Terry and that treatment and surveillance recommendations have certainly been appropriate. All questions answered today. I spent a total of 30 minutes of time face to face with Vaibhav Nhan today and 25 minutes of this was spent in direct counseling and coordination of care. MELVIN
--- NOTE | 2018-08-20 10:56 | NUR ---
SOHEILA rec'd a referral from provider to connect the patient with a counselor. SW visited with the pt to find out if he had been seeing the counselor that was previously set up, and he reported that the had not because at the time he did not feel that it would be helpful. Pt reports now he would like to give it a try, but would prefer to visit with an older female instead. SOHEILA contacted Julianne Elizabethglenna who reported she had an opening today at 2:00. SOHEILA put Julianne on speakerphone with the pt present and together we made the appointment for the patient at 2:00. SOHEILA informed the provider of this information.
--- NOTE | 2018-08-21 09:18 | NUR ---
Refill for valium called to [facility]. SI mg tablets, take 2.5 mg PO PRN at bedtime. Disp#30; refill X 3.
--- NOTE | 2018-08-21 11:24 | NUR ---
Pt saw the recommended counselor yesterday and indicated it was a good match. He is planning to follow up with her next week. Pt is requesting SW look into co-pay assistance for his visits with the counselor. There is a program open to assist with this cost through [employer]. SW will submit an application.
--- NOTE | 2018-08-22 12:45 | NUR ---
SOHEILA applied for the counseling assistance through [employer]. The patient was pre-approved for up to $2,000 worth of assistance. He will need to come in and sign the application and provide a copy of his [employer] card. SOHEILA informed the pt he will need to come in. He is planning to come in early next week.
--- NOTE | 2018-09-12 10:47 | NUR ---
SW emailed pt and counselor the reimbursement form for counseling claims.
--- NOTE | 2018-09-17 13:52 | NUR ---
Pt signed an original copy of the claim form so that claims can be made easily as they come in. This was scanned and saved with SW files. SW notified the pt of the recent determination of the program not covering counseling by an LAWYER PROBATE. SW will notify the counselor of this information as well as it may determine how they decide to proceed with their meetings.
[2018-09-19 14:53] VITALS: Wt 83.8 kg
[2018-10-30 15:02] VITALS: BP 116/65
[2018-10-30 16:37] LABS: PLATELET COUNT, AUTOMATED 151 K/uL (150-450)
[2018-11-06 16:01] VITALS: BP 130/66
--- NOTE | 2018-11-07 04:01 | [facility] ONCOLOGY NOTE ---
EVENT DATE: November 06, 2018 DIAGNOSES 1. Rectal adenocarcinoma. 2. History of prostate cancer. 3. Anxiety. 4. History of shingles. CHIEF COMPLAINT Patient is here today for followup of his rectal adenocarcinoma. ONCOLOGY HISTORY Patient is a 78-year-old male who had been diagnosed on August 01, 2015, with prostate cancer, [place] score of 7, moderately to poorly differentiated with 40% involvement, stage T2c N0 M0. Initial PSA was 4.9 ng/mL status post radiation therapy. Patient recently presented with rectal bleeding, so the patient had a colonoscopy by Dr. Foy on September 18, 2017, and the patient was found to have a rectal mass. The biopsy of that mass came back positive for poorly differentiated colonic adenocarcinoma. 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 CEA done on September 23, 2017, was high at 7.8. His chem panel was totally normal. CBC was also normal. CEA was high at 7.8. Pelvic MRI done on September 26, 2017, showed a newly diagnosed rectal cancer with irregular thickening of the mid rectum 2.5 cm above the anal verge, extending for a distance of 4.4 cm with possible transmural invasion of the perirectal fat. There was no evidence of adenopathy. There was an indeterminate enhancing bone lesion in the right inferior sacrum measuring 2.7 cm. Metastasis could not be excluded. Patient started neoadjuvant chemotherapy with FOLFOX chemotherapy on October 21, 2017. Patient will complete his eighth course of neoadjuvant FOLFOX chemotherapy on March 10, 2018. Patient received 10 courses of adjuvant FOLFOX therapy, completed on the May, and the patient refused to take the last two cycles of FOLFOX. Patient had low anterior resection done on July 18, 2018. and the final diagnosis came back positive for 4.5 cm moderately differentiated (G2) adenocarcinoma invading through the muscularis propria into the perirectal soft tissue (ypT3). Margins were negative. Two out of 15 lymph nodes came back positive for metastasis (yN1). Lymphovascular invasion was present. Neural invasion was negative. There was poor or no response, score 3, to the treatment. Microsatellite instability high was negative. BRAF, NRAS, KRAS all came back negative so the tumor was staged as stage III (ypT3 ypN1 cM0). HISTORY OF PRESENT ILLNESS Patient is here today for followup of his rectal adenocarcinoma after low anterior resection done on July 18, 2018, with temporary colostomy and reversal of the colostomy done on [address] Foy. 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 He has some tension headache and he has occasional diarrhea, but other than that, he is really doing very well currently. PAST MEDICAL HISTORY 1. Prostate cancer. 2. History of skin cancer. 3. History of shingles. PAST SURGICAL HISTORY 1. TURP times two. 2. Right inguinal hernia repair. 3. Amputated left toe. 4. Surgery for right ankle fracture. FAMILY HISTORY His father, maternal grandfather, paternal grandfather, and brother all had prostate cancer. SOCIAL HISTORY Patient is single with no children. 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 He denies any abuse of tobacco or illicit drugs, but he drinks about five beers per week. CURRENT MEDICATIONS 1. Acyclovir 800 mg daily as needed p.r.n. 2. Eliquis 500 mg twice daily. ALLERGIES 1. PENICILLIN which caused hives. 2. SOY COKER and SOY DUST which cause asthma-like attack. REVIEW OF SYSTEMS CONSTITUTIONAL: No appetite or weight change. No fever, chills or sweating. No recent infection. HEENT: Ears: No tinnitus or hearing problem. Nose: No nasal discharge or epistaxis. Throat: No sore throat or mouth ulcers. Eyes: No diplopia or visual changes. RESPIRATORY: No shortness of breath. No cough, expectoration or hemoptysis. CARDIOVASCULAR: No chest pain, orthopnea, or paroxysmal nocturnal dyspnea (PND). No edema. No palpitations. GASTROINTESTINAL: Patient has occasional diarrhea. GENITOURINARY: No hematuria or dysuria. MUSCULOSKELETAL: No pain in the muscles, joints or bones. NEUROLOGICAL: He has neuropathy in his feet and tension headache occasionally. HEMATOLOGIC/LYMPHATIC: No bleeding or easy bruising. No weakness or fatigue. No enlarged lymph nodes. SKIN: No skin rash or lumps. PSYCHIATRIC: No anxiety or depression. PHYSICAL EXAMINATION GENERAL: Looks stable. Well-developed, well-nourished, and in no acute distress. VITAL SIGNS: Blood pressure 130/66, pulse 81 per minute, respirations 16 per minute, temperature 98.3, pulse ox 91% on room air. HEENT: Head: Atraumatic. No sinus tenderness to palpation. Eyes: No icterus or conjunctivitis. Mouth and throat: No oral thrush or mucositis. NECK: Supple. No cervical or supraclavicular lymphadenopathy. LUNGS: Clear to auscultation and percussion bilaterally. HEART: Regular rate and rhythm. No gallops, murmurs, clicks or rubs. ABDOMEN: Soft and lax. No tenderness. No hepatosplenomegaly. No masses. EXTREMITIES: No cyanosis, clubbing or edema. LYMPHATICS: No peripheral lymphadenopathy. NEUROLOGICAL: Conscious, alert and oriented times three. No focal motor or sensory deficits. PSYCHIATRIC: Mood and affect appear normal. SKIN: No skin rash, bruise or purpuric eruption. DIAGNOSTIC DATA CBC showed a white count of 4, hemoglobin 14, hematocrit 40.8, platelet 151,000. Chem panel totally normal except chloride 108 and blood sugar 114. His CEA is normal at 3. ASSESSMENT 1. Rectal adenocarcinoma with mass infiltrating the wall of the perirectal fat, probably T3 lesion by pelvic MRI on September 26, 2017. Colonoscopy on September 18, 2017, did reveal rectal mass, and the biopsy was positive for moderately differentiated colonic adenocarcinoma. 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 Patient received neoadjuvant chemotherapy with FOLFOX regimen between October 21, 2017, completed June 09, 2018. He developed thrombocytopenia, for which modification of the dose was done. Patient received 10 courses of FOLFOX and he was not able to complete 12 courses. Patient has been evaluated at [facility] for surgical resection, which was done on July 18, 2018, and the pathology came back positive for 4.5 cm infiltrating moderately differentiated (G2) adenocarcinoma invading through the muscularis propria into the perirectal soft tissue (ypT3). Margins were negative. Two out of 15 lymph nodes came back positive for metastasis (ypN1). Lymphovascular invasion was positive, but perineural invasion was negative, and there was no or poor response to treatment, score 3. Microsatellite instability high was negative. KRAS, BRAF, NRAS mutations all came back negative. I am planning to continue surveillance. I am planning to see him again in three months with CBC, chem panel, and CEA. His current CEA is normal at 3. 2. Vitamin B12 deficiency. Patient receiving B12 supplement. Initial B12 level was 131, but anti-intrinsic factor antibodies and antiparietal cell antibodies were negative. 3. Anxiety, on Valium p.r.n. PLAN 1. Continue followup. 2. Patient to return in three months with CBC, chem panel, CEA. 3. Patient to contact us for any new concerns or complaints. MELVIN
== END 2018-11-17 ==
LOC: ONC 16:00
PROVIDERS: ATTEND Internal Medicine Medical Oncology
DX: Z85.048 Personal history of other malignant neoplasm of rectum, rectosigmoid junction, and anus (principal); F41.9 Anxiety disorder, unspecified; Z92.21 Personal history of antineoplastic chemotherapy; R11.0 Nausea; E53.8 Deficiency of other specified B group vitamins; Z79.899 Other long term (current) drug therapy
CPT/HCPCS: 36415; 82378; 85025; G0463; 82040; 82247; 82310; 82374; 82435; 82565; 82947; 84075; 84132; 84155; 84295; 84450; 84460; 84520; 99212